=== PATIENT | female | born 2000 | race Caucasian/White ===

== ENCOUNTER → 2020-04-13 08:37 | Outpatient (CLI) | payer OTHER, SELFPAY ==
[2020-04-13 12:33] LABS: AST(SGOT) 16 U/L (15-37); Alanine Aminotransfer ALT/SGPT 19 U/L (13-56); Albumin, Serum 3.6 g/dL (3.2-5.0); Alkaline Phosphatase 51 U/L (45-117); Anion Gap 6 (5-15); BUN 12 mg/dL (7-18); BUN/Creat Ratio 12.8 RATIO (10-20); Calcium,Total 9.1 mg/dL (8.5-10.1); Chloride 106 mmol/L (98-107); Cholesterol 222 mg/dL (200); Creatinine, Serum 0.94 mg/dL (0.55-1.02); EST Glomerular Filtration Rate 80 mL/min (>60); Est Glom Filt Rate - Afr Amer 97 mL/min (>60); Globulin 3.6 g/dL (2.2-4.2); Glucose 81 mg/dL (74-106); High Density Lipoprotein 82 mg/dL; Potassium 3.6 mmol/L (3.5-5.1); Protein, Total 7.2 g/dL (6.4-8.2); Sodium Level 138 mmol/L (136-145); Triglycerides 89 mg/dL; Very Low Density Lipoprotein 18 mg/dL (5-40)
== END ==
PROVIDERS: PCP Family Medicine; Visit Provider Family Medicine
DX: Z00.00 Encounter for general adult medical examination without abnormal findings (principal); Z13.220 Encounter for screening for lipoid disorders; Z13.1 Encounter for screening for diabetes mellitus
CPT/HCPCS: 36415; 80053; 80061

== ENCOUNTER → 2021-04-28 | Outpatient (CLI) | payer OTHER, SELFPAY | END | disposition home or self-care (01) | LOC: LABSPEC 04-29 06:41 | PROVIDERS: PCP Family Medicine; Referring Provider Family Medicine; Visit Provider Family Medicine | DX: Z20.822 Contact with and (suspected) exposure to COVID-19 (principal) | CPT/HCPCS: 87635; U0005; U0003 ==

== ENCOUNTER → 2022-03-17 | Outpatient (CLI) | payer OTHER, SELFPAY ==
[2022-03-17 17:25] LABS: Amphetamine Urine VISTA NEGATIVE (<1000 ng/mL); Barbiturate Urine VISTA NEGATIVE (< 200 ng/mL); Benzodiazepine Urine VISTA NEGATIVE (< 200 ng/mL); Cocaine Urine VISTA NEGATIVE (< 300 ng/mL); Ecstacy Urine VISTA NEGATIVE (< 500 ng/mL); Methadone Urine VISTA NEGATIVE (< 300 ng/mL); PCP Urine VISTA NEGATIVE (< 25 ng/mL); THC Urine VISTA NEGATIVE (< 50 ng/mL); Vista UDS pH Range 6
[2022-03-21 22:06] LABS: Chlamydia By Nucleic Acid AMP Negative (Negative)
[2022-03-22 13:36] LABS: Gonococcus By Nucleic Acid AMP Negative (Negative)
== END | disposition home or self-care (01) ==
PROVIDERS: PCP Family Medicine; Referring Provider Obstetrics & Gynecology; Visit Provider Obstetrics & Gynecology
DX: O09.90 Supervision of high risk pregnancy, unspecified, unspecified trimester (principal)
CPT/HCPCS: 36415; 80307; 84702; 87086; 87088; 87491; 87591

== ENCOUNTER → 2022-03-19 | Outpatient (CLI) | payer OTHER, SELFPAY ==
[2022-03-19 16:49] LABS: hCG Titer Quant., Serum 71559 mIU/mL (1-3)
== END | disposition home or self-care (01) ==
LOC: LAB 15:22
PROVIDERS: PCP Family Medicine; Referring Provider Obstetrics & Gynecology; Visit Provider Obstetrics & Gynecology
DX: O20.0 Threatened abortion (principal)
CPT/HCPCS: 36415; 84702

== ENCOUNTER → 2022-03-25 | Outpatient (CLI) | payer OTHER, SELFPAY ==
--- NOTE | 2022-03-25 15:12 | US_ITS ---
STUDY: FIRST TRIMESTER OBSTETRICAL ULTRASOUND REASON FOR EXAM: Female, 21 years old well being LMP: 01/21/2022 TECHNIQUE: Transabdominal and Transvaginal TECHNICAL QUALITY: Adequate. PRIOR ULTRASOUND: None. FINDINGS: There is visualization of a single gestational sac in a normal intrauterine position. The mean sac diameter (MSD) measures 33 mm, indicating an estimated gestational age (EGA) of 8 weeks, 3 days. The gestational sac shape is within normal limits. There is a visualized yolk sac. The yolk sac measures 4 mm. The placenta is non-visualized. There is no demonstrated embryo ( pole).. The estimated gestation age (EGA) by LMP is 9 weeks, 0 days. The estimated date of delivery (JUANPABLO) by LMP is 10/28/2022. The estimated gestation age (EGA) by US is 8 weeks, 3 days. The estimated date of delivery (JUANPABLO) by US is 11/01/2022. The uterus measures 9.2 x 7.4 x 6.57. There is no demonstrated uterine fibroid. The cervix is closed. The right ovary measures 2.8 x 2.2 x 1.7 cm. There is no right ovarian cyst. There is no visualized right adnexal mass or complex lesion. The left ovary measures 2.5 x 1.5 x 1.4 cm. There is no left ovarian cyst. There is no visualized left adnexal mass or complex lesion. There is no fluid in the cul de sac. US/Init OB < 14Wks US IMPRESSION: Intrauterine gestational sac of 8 weeks 3 days with yolk sac but no identifiable pole most consistent with an incomplete . Electronically Signed: Preet Mcdaniels MD at 16:35 EDT ,
== END | disposition home or self-care (01) ==
PROVIDERS: PCP Family Medicine; Referring Provider Obstetrics & Gynecology; Visit Provider Obstetrics & Gynecology
DX: O20.0 Threatened abortion (principal); Z3A.08 8 weeks gestation of pregnancy
CPT/HCPCS: 76801

== ENCOUNTER 2022-03-29 12:24 | Day surgery (SDC) | payer OTHER, SELFPAY ==
--- NOTE | 2022-03-29 06:28 | HP.PCM.OB_ITS ---
HPI - General HPI Narrative ELAN VANG, is a 21 F who presents with 8 week missed AB no pole and empty gestational sac. ultrasounds done over a week apart with no change. Maternal Data Information JUANPABLO Calculator Estimated Delivery Date Method Current WG Current Estimate 10/24/22 LMP (Certain) 10w 1d PFSH PFSH Medical History (Updated 03/29/22 @ 06:[address] Leonarda Crawford MD) Alcohol use Anxiety Depression History of IBS Non-smoker Wears contact lenses Home Medications dicyclomine 10 mg capsule 10 mg PO PRN PRN IBS 03/28/22 [History Last Taken Unknown] Allergy/AdvReac Type Severity Reaction Status Date / Time azithromycin AdvReac Severe Vomiting Verified 03/28/22 13:41 Surgical History (Updated 03/28/22 @ 13:48 by Trixie Ortiz) Hx of wisdom tooth extraction Social History adopted: No household members: spouse housing: house current occupational status: employed current occupation: [employer] current occupational exposures/hazards: No pets and animals: Yes pets and animals: dog(s) history of recent travel: Yes ([place] & [place]) out of state: Yes out of country: No sexually active: Yes Smoking Status: Never smoker alcohol intake: former details: social prior to substance use type: does not use well-balanced diet: daily or most days caffeine: Yes (occasionally) Type: coffee Number of servings: 1 eating out: 1-3 times/week during the past year weight has: remained stable what type of physical activity do you participate in: walking frequency: 3-4 times per week duration: 15-30 minutes/day chelsi/cheondoism: Anglican seatbelt use: always do you feel safe at home: Yes additional social history: - Donald [employer] History 1 Elective abortions Hx Para 0 Spontaneous abortions Hx # Term Pregnancies Ectopic pregnancies Hx # Pregnancies Multiple births # of living children Visit Details OB Flowsheet Initial Weight: Not Recorded Date -?-?-?-?-?-?-?-?-?-?-?-?- EGA Weight BP Urine Prot -?-?-?-?-?-?-?-?-?-?-?-?- Glucose FHR FuHt Pres Dilation -?-?-?-?-?-?-?-?-?-?-?-?- Effaced St Visit Note 03/17/22 -?-?-?-?-?-?-?-?-?-?-?-?- 8w 3d 140 lb 6 oz 133/89 -?-?-?-?-?-?-?--?-?-?-?-?- -?-?-?-?-?-?-?-?-?-?-?-?- JV- stranding in the GS and irregular shape pole without heart tones. will order serial quants and call patient with results. 03/29/22 -?-?-?-?-?-?-?-?-?-?-?-?- 10w 1d -?-?-?-?-?-?-?-?-?-?-?-?- -?-?-?-?-?-?-?-?-?-?-?-?- ROS Review of Systems ROS Unobtainable: due to mental status and other Constitutional Constitutional: Reports systems reviewed and no addt'l complaints, except as documented; Denies as per HPI, change in weight, fatigue, fever(s), malaise, weakness or other Eyes Eyes: Reports systems reviewed and no addt'l complaints, except as documented; Denies as per HPI, change in vision or other ENT HEENT: Reports as per HPI and dizziness; Denies dry mouth, headache(s), loss taste/smell, nasal congestion, nasal discharge, neck pain, sore throat or other Respiratory/Chest Respiratory/Chest: Reports systems reviewed and no addt'l complaints, except as documented Gastrointestinal Gastrointestinal: Reports systems reviewed and no addt'l complaints, except as documented and nausea; Denies vomiting Musculoskeletal Musculoskeletal: Reports systems reviewed and no addt'l complaints, except as documented; Denies back pain or joint pain Neurologic Neurologic: Reports systems reviewed and no addt'l complaints, except as documented Psychiatric Psychiatric: Reports systems reviewed and no addt'l complaints, except as documented Endocrine Endocrinology: Reports systems reviewed and no addt'l complaints, except as documented Hematologic/Lymphatic Hematologic/Lymphatic: Reports systems reviewed and no addt'l complaints, except as documented Physical Exam Const alert, oriented x3 and no apparent distress HEENT normocephalic Head and Scalp: atraumatic Eyes EOMs intact bilaterally and conjunctivae normal Neck full ROM, no lymphadenopathy, supple and thyroid normal General: trachea midline Lymph Lymphatic: no lymphadenopathy noted Resp normal respiratory effort, no retractions, no use of accessory muscles and clear to auscultation bilaterally Cardio regular rhythm GI normal to inspection, nondistended, normoactive bowel sounds, soft to palpation, non-distended and no masses Inspection: Negative for abdominal distention Back/Spine no CVA tenderness Extremity normal to inspection Skin no rashes or lesions noted Neuro moves all extremities and deep tendon reflexes 2+ bilaterally Motor Exam: clonus absent Psych mental status grossly normal Labs Labs Labs: Pap Smear Negative Obstetrics US Chlamydia DNA (SUMMER) Negative (Negative) Neisseria gonorrhoeae DNA (SUMMER) Negative (Negative) Assessment & Plan (1) Incomplete : COMMENT: D&C scheduled 03/29/22 PLAN: Plan After discussing the patient's diagnosis and treatment plan options, patient wishes to proceed with surgical management. I have discussed with the patient the risks, benefits, and alternatives of the procedure which include but are not limited to risks of anesthesia, bleeding, infection, possible damage to bowel, bladder, or surrounding vasculature which could lead to additional surgery to evaluate any complications. Patient agrees to procedure and wishes to proceed. ACOG/uptodate references given for additional information regarding procedure.
[2022-03-29] MEDS: Doxycycline 100 MG CAPSULE PO (13:16)
[2022-03-29 13:19] VITALS: BP 119/71; PULSE 96; RESP 16; TEMP 36.3; O2SAT 100; BMI 24.0
[2022-03-29 13:21] LABS: Hematocrit 37.7 % (37-47); Hemoglobin 12.9 g/dL (12.0-15.0); Mean Corp Hgb Conc 34.2 g/dL (32-36); Mean Corpuscular Hgb 29.9 pg (27.0-32.0); Mean Corpuscular Volume 87.5 fL (81-99); Mean Platelet Vol. 9.7 fl (6.2-12.0); Platelet Count 273 K/mm3 (150-450); RBC Distribution Width CV 11.8 % (11.6-14.6); RBC Distribution Width SD 37.9 fl (35.1-43.9); Red Blood Count 4.31 M/mm3 (4.2-5.4); White Blood Count 8.8 K/mm3 (4.4-11.0)
[2022-03-29] MEDS: Lactated Ringers 1,000 ML 15 ML IV (13:27)
--- NOTE | 2022-03-29 13:29 | PCM.OPRPT ---
Problems Associated Problem List Diagnoses (1) Incomplete : Report of Operation Date of Procedure: 03/29/22 Pre-Operative Diagnosis: see problem list Post-Operative Diagnosis: same Surgery/Procedure Performed:: Suction dilation and curettage Description of Surgical Findings:: no FHT present, Nonviable 8 weeks prosthetic lab technician: None Type of Anesthesia: Local MAC Special Medications: none Specimen's removed: POC Drains: none Estimated Blood Loss (mL): 50 Fluids Replaced: crystalloid Description of Procedure: Patient was taken to the operating room and placed under MAC local anesthesia. She was prepped and draped in the normal sterile fashion the dorsal lithotomy position. Bladder was drained of clear urine and anterior lip of the cervix was grasped and the uterus sounded to 8 weeks. Cervix was progressively dilated to allow passage of a 8 mm suction curette. Progressive passes were made removing the retained products of conception without complication. Sharp curettage confirmed complete removal of the retained products. All instruments were removed from the vagina and excellent hemostasis was noted and the patient was taken to recovery in stable condition. Grafts/Implants Used: none Complications none Admit VTE Documentation VTE Present on Admission: No VTE Mechan Device Prophylaxis: SCD's Procedures Urinary/Genital 52xxx-59xxx: 80128 Surg Trtmt missed Ab, 1TM
[2022-03-29] MEDS: Lidocaine 1% (20 ml mdv) 20 ML Vial (13:33)
--- NOTE | 2022-03-29 13:47 | DCINST_ITS ---
Discharge Instructions Procedure D&C Diet Discharge Diet: No restrictions Activity Discharge Activity: Return to Normal Activity, May Shower and May Take a Tub Bath (after 1 week) May resume sexual activity in: 1-2 weeks Weight Bearing Status: Weight bearing as tolerated Lifting Restrictions: none Dressing / Incision Call your doctor if you observe: Fever of 101 or Higher, Using more than 1 pad per hour, Shortness of breath and Uncontrolled pain Follow Up Care Please Follow Up With: Leonarda Crawford MD When: Call [phone] to schedule appointment. Test Results: Test results from this visit will be discussed in further detail at your follow- up appointment, if applicable. Discharge Plan Admission Attending Provider: Leonarda Crawford Primary Care Provider: Catalina Cox Discharge Orders/Prescriptions Prescriptions: No Action dicyclomine 10 mg Capsule 10 mg PO PRN PRN (Reason: IBS) Referrals / Follow Up: Catalina Cox DO [Primary Care Provider] - Disposition Disposition (needs filled in before D/C Order can be placed): Home, Self Care
[2022-03-29 13:55] VITALS: BP 113/67; BP 119/71; PULSE 76; RESP 16; TEMP 36.8; O2SAT 99
[2022-03-29 14:00] VITALS: BP 119/71; BP 98/64; PULSE 77; RESP 16; O2SAT 100
[2022-03-29 14:05] VITALS: BP 108/68; BP 119/71; PULSE 68; RESP 16; O2SAT 100
[2022-03-29 14:10] VITALS: BP 110/68; BP 119/71; PULSE 69; RESP 16; TEMP 36.6; O2SAT 100
--- NOTE | 2022-03-29 14:15 | POC_PTH ---
PATIENT: ELAN VANG LOC: [facility] [place] U#:[id number] AGE/SX: 21/ ROOM: RE03/29/[address]: Dr. Leonarda Crawford MD : 2000 BED: DIS: 03/29/2022 SPEC #: [id number] RECD: 03/30/22 08:27 STATUS: DEON REKirby #: [id number] GREY: 03/29/22 14:[address]: Leonarda Crawford DEPT: SURGICAL PATHOLOGY RECD BY: Adolfo Weir ENTERED: 03/30/22 10:18 SP TYPE: PROD CONC OTHR DR: Dr. Catalina Cox DO Tissues: Product of conception, NOS Procedures: Surgery Specimen Level IV HEADER OPERATION: Suction dilation and curettage PRE-OP DIAGNOSIS: Incomplete TISSUE SUBMITTED: Products of conception MICROSCOPIC DIAGNOSIS Products of conception: [place], gestational endometrium and immature chorionic villi (products of conception), clinically incomplete . SJ:[place] 03/31/2022 MICROSCOPIC DESCRIPTION Slides are reviewed. GROSS DESCRIPTION Received in fixative is one container labeled with the patient's name and designated products of conception. The specimen consists of multiple irregular fragments of red-jernigan soft tissue that in aggregate measure 7 x 4.5 x 1 cm. parts are not grossly recognized. Ordering Machine Operator sections area submitted in one cassette. / AM:[place] 03/30/2022 TC:5 CPT: 64164
[2022-03-29] MEDS: HYDROcodone Bitartrate/Apap 5/325 Tablet PO (14:38)
[2022-03-29 15:09] VITALS: BP 119/71; BP 99/66; PULSE 62; RESP 14; TEMP 36.3; O2SAT 100
== END 2022-03-29 15:05 | disposition home or self-care (01) ==
LOC: SDC 12:25 → AC 12:27
PROVIDERS: PCP Family Medicine; Referring Provider Obstetrics & Gynecology; Visit Provider Obstetrics & Gynecology
PROC: (CPT 59812; principal; 2022-03-29 14:00)
DX: O03.4 Incomplete spontaneous abortion without complication (principal)
CPT/HCPCS: 59812; 01965; 85027; 86850; 86900; 86901; 88305; J7120; J2405

== ENCOUNTER → 2022-08-23 | Outpatient (CLI) | payer OTHER, SELFPAY ==
[2022-08-23 16:06] LABS: hCG Titer Quant., Serum 461 mIU/mL (1-3)
== END | disposition home or self-care (01) ==
LOC: PAVLAB 14:58
PROVIDERS: PCP Family Medicine; Referring Provider Obstetrics & Gynecology; Visit Provider Obstetrics & Gynecology
DX: N91.2 Amenorrhea, unspecified (principal)
CPT/HCPCS: 36415; 84702

== ENCOUNTER → 2022-08-25 | Outpatient (CLI) | payer OTHER, SELFPAY ==
[2022-08-25 16:10] LABS: hCG Titer Quant., Serum 972 mIU/mL (1-3)
== END | disposition home or self-care (01) ==
PROVIDERS: PCP Family Medicine; Referring Provider Obstetrics & Gynecology; Visit Provider Obstetrics & Gynecology
DX: N91.2 Amenorrhea, unspecified (principal)
CPT/HCPCS: 36415; 84702

== ENCOUNTER 2022-08-31 18:12 | Outpatient (CLI) | payer OTHER, SELFPAY ==
--- NOTE | 2022-08-31 18:15 | US_ITS ---
STUDY: FIRST TRIMESTER OBSTETRICAL ULTRASOUND REASON FOR EXAM: Female, 21 years old. Viability. LMP: Unknown. TECHNIQUE: Transvaginal TECHNICAL QUALITY: Adequate. PRIOR ULTRASOUND: None. FINDINGS: There is visualization of a single gestational sac in a normal intrauterine position. The mean sac diameter (MSD) measures 0.95 cm, indicating an estimated gestational age (EGA) of 5 weeks, 5 days. The gestational sac shape is within normal limits. There is a visualized yolk sac. The yolk sac measures 0.27 cm. The placenta is non-visualized. There is no demonstrated embryo ( pole). The estimated gestation age (EGA) by LMP is 5 weeks, 4 days. The estimated date of delivery (JUANPABLO) by LMP is April 29, 2023. The estimated gestation age (EGA) by US is 5 weeks, 5 days. The estimated date of delivery (JUANPABLO) by US is April 28, 2023. The retroverted uterus measures 7.1 x 6.6 x 4.1 cm. There is no demonstrated uterine fibroid. The cervix is closed. The right ovary measures 2.4 x 1.7 x 1.5 cm. There are multiple follicles of the right ovary without a dominant cyst. There is no visualized right adnexal mass or complex lesion. Normal vascularity on Doppler imaging. The left ovary measures 3.1 x 2.6 x 2.0 cm. There are multiple follicles of the left ovary without a dominant cyst. There is no visualized left adnexal mass or complex lesion. Normal vascularity on Doppler imaging. There is trace fluid in the cul de sac. US/Transvaginal w/Preg US IMPRESSION: 1. Intrauterine gestational sac with yolk sac but no pole. Gestational age is 5 weeks, 5 days with an JUANPABLO of April 28, 2023. Findings suggest early intrauterine . 2. Normal ovaries. Electronically Signed: Jerel Reyes DO at 20:19 EST ,
== END 2022-08-31 23:59 | disposition home or self-care (01) ==
LOC: US 18:12
PROVIDERS: PCP Family Medicine; Visit Provider Obstetrics & Gynecology
DX: O36.7 Maternal care for viable fetus in abdominal pregnancy (principal)
CPT/HCPCS: 76817

== ENCOUNTER → 2022-09-22 | Outpatient (CLI) | payer OTHER, SELFPAY ==
[2022-09-26 02:08] LABS: Chlamydia By Nucleic Acid AMP Negative (Negative)
[2022-09-26 12:25] LABS: Gonococcus By Nucleic Acid AMP Negative (Negative)
== END | disposition home or self-care (01) ==
LOC: LABSPEC 16:36
PROVIDERS: PCP Family Medicine; Referring Provider Obstetrics & Gynecology; Visit Provider Obstetrics & Gynecology
DX: O09.299 Supervision of pregnancy with other poor reproductive or obstetric history, unspecified trimester (principal); Z3A.00 Weeks of gestation of pregnancy not specified
CPT/HCPCS: 87086; 87491; 87591

== ENCOUNTER → 2022-10-11 | Outpatient (CLI) | payer OTHER, SELFPAY ==
[2022-10-11 10:23] LABS: Absolute Lymphocyte Count 1.81 X10^3/uL (0.83-4.51); Absolute Neutrophil Count 6.7 X10^3/uL (2.0-7.7); Basophil# 0.02 X10^3/uL; Basophil% 0.2 % (0-1); Eosinophil# 0.05 X10^3/uL; Eosinophils% 0.6 % (0-5); Hematocrit 34.7 % (37-47); Hemoglobin 11.8 g/dL (12.0-15.0); Lymphocyte # 1.81 X10^3/ul (0.83-4.51); Lymphocyte % 20.1 % (19-41); Mean Corpuscular Hgb 29.9 pg (27.0-32.0); Mean Corpuscular Volume 87.8 fL (81-99); Mean Platelet Vol. 9.5 fl (6.2-12.0); Monocyte# 0.42 X10^3/uL; Monocyte% 4.7 % (0-10); NRBC Flagged by Analyzer 0 % (0-5); Neutrophil # 6.68 X10^3/uL (2.7-7.7); Neutrophil % 74.2 % (47-70); Platelet Count 264 K/mm3 (150-450); RBC Distribution Width SD 38.6 fl (35.1-43.9); Red Blood Count 3.95 M/mm3 (4.2-5.4)
[2022-10-11 11:28] LABS: HIV - WCH Non-Reactive (Nonreactive); Hepatitis B Surface Antigen Non-Reactive (Nonreactive); Hepatitis C Antibody Non-Reactive (Nonreactive); Rubella IgG Reactive (Nonreactive); Syphilis Antibodies Non-reactive; Vitamin D,25 Hydroxy 33.9 ng/mL
== END | disposition home or self-care (01) ==
LOC: PAVLAB 09:48
PROVIDERS: Obstetrics & Gynecology; PCP Family Medicine; Referring Provider Obstetrics & Gynecology; Visit Provider Obstetrics & Gynecology
DX: O99.280 Endocrine, nutritional and metabolic diseases complicating pregnancy, unspecified trimester (principal); O09.299 Supervision of pregnancy with other poor reproductive or obstetric history, unspecified trimester; E55.9 Vitamin D deficiency, unspecified; Z3A.00 Weeks of gestation of pregnancy not specified
CPT/HCPCS: 36415; 82306; 84443; 85025; 86703; 86762; 86780; 86803; 86850; 86900; 86901; 87340

== ENCOUNTER → 2022-10-14 | Outpatient (CLI) | payer OTHER, SELFPAY ==
[2022-10-14 12:05] LABS: NATERA MAILED SPECIMEN
== END | disposition home or self-care (01) ==
LOC: PAVLAB 10:58
PROVIDERS: PCP Family Medicine; Referring Provider Obstetrics & Gynecology; Visit Provider Obstetrics & Gynecology
DX: Z34.81 Encounter for supervision of other normal pregnancy, first trimester (principal)
CPT/HCPCS: 36415

== ENCOUNTER → 2022-11-25 | Outpatient (CLI) | payer OTHER, SELFPAY ==
[2022-11-25 12:31] LABS: Absolute Lymphocyte Count 1.56 X10^3/uL (0.83-4.51); Absolute Neutrophil Count 6.6 X10^3/uL (2.0-7.7); Basophil# 0.03 X10^3/uL; Basophil% 0.3 % (0-1); Eosinophil# 0.08 X10^3/uL; Eosinophils% 0.9 % (0-5); Hematocrit 33.3 % (37-47); Lymphocyte # 1.56 X10^3/ul (0.83-4.51); Lymphocyte % 17.8 % (19-41); Mean Corpuscular Hgb 30.1 pg (27.0-32.0); Mean Corpuscular Volume 91.2 fL (81-99); Mean Platelet Vol. 10.4 fl (6.2-12.0); Monocyte# 0.51 X10^3/uL; Monocyte% 5.8 % (0-10); NRBC Flagged by Analyzer 0 % (0-5); Neutrophil # 6.57 X10^3/uL (2.7-7.7); Neutrophil % 74.9 % (47-70); Platelet Count 254 K/mm3 (150-450); RBC Distribution Width CV 12.3 % (11.6-14.6); RBC Distribution Width SD 41.2 fl (35.1-43.9); Red Blood Count 3.65 M/mm3 (4.2-5.4); White Blood Count 8.8 K/mm3 (4.4-11.0)
[2022-11-25 12:47] LABS: ALB/GLOB Ratio 0.8 RATIO (0.9-2.4); AST(SGOT) 25 U/L (15-37); Alanine Aminotransfer ALT/SGPT 32 U/L (13-56); Albumin, Serum 3.1 g/dL (3.2-5.0); Alkaline Phosphatase 61 U/L (45-117); Anion Gap 6 (5-15); BUN 9 mg/dL (7-18); BUN/Creat Ratio 16.5 RATIO (10-20); Calcium,Total 9.1 mg/dL (8.5-10.1); Chloride 108 mmol/L (98-107); Cholesterol 267 mg/dL (200); Creatinine, Serum 0.54 mg/dL (0.55-1.02); EST Glomerular Filtration Rate 146 mL/min (>60); Est Glom Filt Rate - Afr Amer 177 mL/min (>60); Glucose 77 mg/dL (74-106); High Density Lipoprotein 86 mg/dL; Potassium 3.6 mmol/L (3.5-5.1); Protein, Total 7.1 g/dL (6.4-8.2); Sodium Level 138 mmol/L (136-145); Triglycerides 71 mg/dL; Very Low Density Lipoprotein 14 mg/dL (5-40)
== END | disposition home or self-care (01) ==
LOC: BFHLAB 09:39
PROVIDERS: PCP Family Medicine; Visit Provider Nurse Practitioner Family
DX: Z00.00 Encounter for general adult medical examination without abnormal findings (principal)
CPT/HCPCS: 36415; 80053; 80061; 85025

== ENCOUNTER → 2023-01-30 | Outpatient (CLI) | payer OTHER, SELFPAY ==
[2023-01-30 09:41] LABS: Absolute Lymphocyte Count 1.59 X10^3/uL (0.83-4.51); Absolute Neutrophil Count 8.3 X10^3/uL (2.0-7.7); Basophil# 0.04 X10^3/uL; Basophil% 0.4 % (0-1); Eosinophils% 0.9 % (0-5); Hematocrit 32.8 % (37-47); Hemoglobin 10.8 g/dL (12.0-15.0); Lymphocyte # 1.59 X10^3/ul (0.83-4.51); Lymphocyte % 15.1 % (19-41); Mean Corp Hgb Conc 32.9 g/dL (32-36); Mean Corpuscular Hgb 30.3 pg (27.0-32.0); Mean Corpuscular Volume 91.9 fL (81-99); Mean Platelet Vol. 10.3 fl (6.2-12.0); Monocyte# 0.47 X10^3/uL; Monocyte% 4.5 % (0-10); NRBC Flagged by Analyzer 0 % (0-5); Neutrophil % 78.5 % (47-70); Platelet Count 221 K/mm3 (150-450); RBC Distribution Width CV 12.1 % (11.6-14.6); RBC Distribution Width SD 40.7 fl (35.1-43.9); Red Blood Count 3.57 M/mm3 (4.2-5.4); White Blood Count 10.6 K/mm3 (4.4-11.0)
[2023-01-30 10:14] LABS: Glucose Challenge Gest 1H 50g 123 mg/dL (70-140)
[2023-01-30 10:51] LABS: HIV - WCH Non-Reactive (Nonreactive); Syphilis Antibodies Non-reactive
== END | disposition home or self-care (01) ==
LOC: PAVLAB 08:56
PROVIDERS: Nurse Practitioner Women's Health; PCP Family Medicine; Referring Provider Obstetrics & Gynecology; Visit Provider Obstetrics & Gynecology
DX: Z34.90 Encounter for supervision of normal pregnancy, unspecified, unspecified trimester (principal)
CPT/HCPCS: 36415; 82950; 85025; 86703; 86780

== ENCOUNTER → 2023-02-27 | Outpatient (CLI) | payer OTHER, SELFPAY ==
[2023-02-27 16:12] LABS: Absolute Lymphocyte Count 2.12 X10^3/uL (0.83-4.51); Basophil# 0.04 X10^3/uL; Basophil% 0.3 % (0-1); Eosinophil# 0.07 X10^3/uL; Eosinophils% 0.5 % (0-5); Hematocrit 35.1 % (37-47); Hemoglobin 11.4 g/dL (12.0-15.0); Lymphocyte # 2.12 X10^3/ul (0.83-4.51); Lymphocyte % 15.2 % (19-41); Mean Corp Hgb Conc 32.5 g/dL (32-36); Mean Corpuscular Hgb 30.7 pg (27.0-32.0); Mean Corpuscular Volume 94.6 fL (81-99); Mean Platelet Vol. 10.6 fl (6.2-12.0); Monocyte# 0.64 X10^3/uL; Monocyte% 4.6 % (0-10); NRBC Flagged by Analyzer 0 % (0-5); Neutrophil # 10.99 X10^3/uL (2.7-7.7); Platelet Count 242 K/mm3 (150-450); RBC Distribution Width CV 12.6 % (11.6-14.6); RBC Distribution Width SD 43.3 fl (35.1-43.9); Red Blood Count 3.71 M/mm3 (4.2-5.4); White Blood Count 13.9 K/mm3 (4.4-11.0)
== END | disposition home or self-care (01) ==
PROVIDERS: Nurse Practitioner Women's Health; PCP Family Medicine; Referring Provider Obstetrics & Gynecology; Visit Provider Obstetrics & Gynecology
DX: O99.012 Anemia complicating pregnancy, second trimester (principal); Z3A.00 Weeks of gestation of pregnancy not specified
CPT/HCPCS: 36415; 85025

== ENCOUNTER 2023-03-06 18:13 | Outpatient (CLI) | payer OTHER, SELFPAY ==
[2023-03-06 18:42] VITALS: BMI 29.5
[2023-03-06 19:19] LABS: ROM Internal Control Test YES-OK TO RESULT pt. (Internal QC); ROM Patient Test Negative (Negative)
[2023-03-06 19:20] LABS: Record Kit Lot#, ROM+ K1374
--- NOTE | 2023-03-08 17:12 | OB.TRI.HP_ITS ---
HPI - General HPI Narrative ELAN VANG, is a 22 F who presents at 32 +2 with questionable leaking of fluid. +fm, no vb/ctx. Maternal Data Information JUANPABLO Calculator Estimated Delivery Date Method Current WG Current Estimate 04/29/23 LMP (Certain) 32w 4d Other Estimates 04/25/23 Ultrasound #1 33w 1d PFSH PFSH Medical History Alcohol use Anxiety Depression History of IBS History of spontaneous Non-smoker Wears contact lenses Home Medications dicyclomine 10 mg capsule 10 mg PO PRN PRN IBS 03/28/22 [History Last Taken Unknown] docosahexaenoic acid 200 mg capsule ( DHA) mg PO 09/13/22 [History Last Taken Unknown] fluoxetine 10 mg capsule 10 mg PO DAILY 09/13/22 [History Last Taken 03/06/23 07:00 10 mg] Allergy/AdvReac Type Severity Reaction Status Date / Time azithromycin AdvReac Severe Vomiting Verified 03/08/23 15:36 Surgical History History of D&C Hx of wisdom tooth extraction Social History adopted: No household members: spouse housing: house current occupational status: employed current occupation: [email or web address], [employer] current occupational exposures/hazards: No pets and animals: Yes pets and animals: dog(s) history of recent travel: No ([place] & [place]) sexually active: Yes Smoking Status: Never smoker Electronic Cigarette Use: not used alcohol intake: former details: social prior to substance use type: does not use well-balanced diet: daily or most days caffeine: Yes (occasionally) Type: coffee Number of servings: 1 eating out: 1-3 times/week during the past year weight has: remained stable what type of physical activity do you participate in: walking frequency: 3-4 times per week duration: 15-30 minutes/day chelsi/scientology: Roman Catholic seatbelt use: always do you feel safe at home: Yes additional social history: - [employer] History 2 Elective abortions Hx Para 0 Spontaneous abortions 1 Hx # Term Pregnancies Ectopic pregnancies Hx # Pregnancies Multiple births # of living children 0 Past Pregnancies Del. Date Name GA/Weeks Outcome Route Bth Weight Infant Gen Labor Lgth Anesthesia Del Jose Rafaelatpedro Provider FOB 03/29/22 spontaneous Visit Details Expected Delivery Route/Plan Labor Preferences- CB/BF classes: discussed labor support person: Jeremy labor intervention preferences: [] pain management options preferred: epidural cut cord/dad catch: cord : yes PP control planned: discussed discussed possible routes of delivery and associated risks: [] special requests: [] Plans Covid status: unvaccinated Flu vaccine: no Tdap vaccine: given Rhogam: NA LARC form signed: yes Problem list reviewed and updated with the most current plan of care details and appropriate orders placed. Relevant counseling for the gestational age provided. Continue routine care and follow up unless otherwise noted in visit notes/problem list details OB Flowsheet Initial Weight: Not Recorded Date -?-?-?-?-?-?-?-?-?-?-?-?- EGA Weight BP Urine Prot -?-?-?-?-?-?-?-?-?-?-?-?- Glucose FHR FuHt Pres Dilation -?-?-?-?-?-?-?-?-?-?-?-?- Effaced St Visit Note 09/22/22 -?-?-?-?-?-?-?-?-?-?-?-?- 8w 5d 140 lb 2 oz 123/81 -?-?-?-?-?-?-?-?-?-?-?-?- 185 -?-?-?-?-?-?-?-?-?-?-?-?- JV- single live IUP measuring 9 weeks 2 days and consistent with LMP. deciding on NIPT. return in 2 weeks for heart tones due to h/o miscarriage. 10/11/22 -?-?-?-?-?-?-?-?-?-?-?-?- 11w 3d 141 lb 8 oz 123/70 Nega tive -?-?-?-?-?-?-?-?-?-?-?-?- Negative 157 -?-?-?-?-?-?-?-?-?-?-?-?- MH-No VB. Brief US to confirm fht. Labs today. Still considering NIPT 11/09/22 -?-?-?-?-?-?-?-?-?-?-?-?- 15w 4d 144 lb 2 oz 120/70 Nega tive -?-?-?-?-?-?-?-?-?-?-?-?- Negative 155 -?-?-?-?-?-?-?-?-?-?-?-?- LC- no vb/crampi ng. normal labs, low risk nipt. discussed and declines afp. 12/07/22 -?-?-?-?-?-?-?-?-?-?-?-?- 19w 4d 145 lb 4 oz 112/72 Trac e -?-?-?-?-?-?-?-?-?-?-?-?- Negative 154 -?-?-?-?-?-?-?-?-?-?-?-?- -NO VB. No mov ement yet. MFM US /6 01/06/23 -?-?-?-?-?-?-?-?-?-?-?-?- 23w 6d 152 lb 6 oz 108/62 Nega tive -?-?-?-?-?-?-?-?-?-?-?-?- Negative 153 24 -?-?-?-?-?-?-?-?-?-?-?-?- KW- +fm, no lof/ vb/ctx. discussed placental lobes, and 28 week labs. 01/30/23 -?-?-?-?-?-?-?-?-?-?-?-?- 27w 2d 158 lb 4 oz 104/72 Nega tive -?-?-?-?-?-?-?-?-?-?-?-?- Negative 145 28 -?-?-?-?-?-?-?-?-?-?-?-?- -No VB, LOF. G ood FM. 28 wk labs, larc. 02/20/23 -?-?-?-?-?-?-?-?-?-?-?-?- 30w 2d 164 lb 2 oz 100/66 Nega tive -?-?-?-?-?-?-?-?-?-?-?-?- Negative 145 30 -?-?-?-?-?-?-?-?-?-?-?-?- KW-no vb/lof/ctx . Good FM. repeat CBC next week. 03/08/23 -?-?-?-?-?-?-?-?-?-?-?-?- 32w 4d 169 lb 6 oz 106/71 -?-?-?-?-?-?-?-?-?-?-?-?- 143 32 -?-?-?-?-?-?-?-?-?-?-?-?- MH-No VB, LOF or CTX. Feeling more uncomfortable but r/t normal growth. She has rpt US at 36 wk NST FHR Rate Baby A Baseline: 130 Variability:: Moderate Accelerations:: 15 x 15 Decelerations:: None NST Reactive:: Yes FHR Category:: Category I Uterine Activity:: none Assessment & Plan (1) Leakage, amniotic fluid: COMMENT: NEGATIVE ROM, resolved. PLAN: Plan Patient presents for triage evaluation secondary to questionable LOF. ROM negative. reassurance provided. no further lof. FHT: Moderate variability reactive no decelerations category I tracing Dora: no Contractions Assessment and plan: Reactive NST, reassuring maternal and status patient discharged to home to follow-up in office/prn. See problem list details for additional plan information. Charges/Coding Procedures Urinary/Genital 52xxx-59xxx: 90312-84 non-stress test Interp
== END 2023-03-06 19:55 | disposition home or self-care (01) ==
LOC: WPOUT 18:22 → WP 18:23
PROVIDERS: PCP Family Medicine; Visit Provider Registered Nurse
DX: O47.03 False labor before 37 completed weeks of gestation, third trimester (principal); O99.343 Other mental disorders complicating pregnancy, third trimester; F41.9 Anxiety disorder, unspecified; F32.A Depression, unspecified; Z3A.32 32 weeks gestation of pregnancy; Z79.899 Other long term (current) drug therapy
CPT/HCPCS: 59025; 59050; 84112

== ENCOUNTER → 2023-04-06 | Outpatient (CLI) | payer OTHER, SELFPAY | END | disposition home or self-care (01) | PROVIDERS: PCP Family Medicine; Visit Provider Obstetrics & Gynecology | DX: Z34.90 Encounter for supervision of normal pregnancy, unspecified, unspecified trimester (principal) | CPT/HCPCS: 87081 ==

== ENCOUNTER → 2023-04-24 | Outpatient (CLI) | payer OTHER, SELFPAY ==
[2023-04-24 15:51] LABS: ROM Internal Control Test YES-OK TO RESULT pt. (Internal QC); ROM Patient Test Negative (Negative); Record Kit Lot#, ROM+ K1409
== END | disposition home or self-care (01) ==
PROVIDERS: PCP Family Medicine; Visit Provider Registered Nurse
DX: O42.90 Premature rupture of membranes, unspecified as to length of time between rupture and onset of labor, unspecified weeks of gestation (principal); Z3A.00 Weeks of gestation of pregnancy not specified
CPT/HCPCS: 84112

== ENCOUNTER 2023-05-01 11:05 | Inpatient (IN) | payer OTHER, SELFPAY ==
[2023-05-01] VITALS (34 sets, daily range): BP systolic 87–171; BP diastolic 39–93; PULSE 60–114; RESP 13–16; TEMP 36.1–36.5; O2SAT 89–100; BMI 31.7
[2023-05-01 11:05] LABS: ROM Internal Control Test YES-OK TO RESULT pt. (Internal QC); ROM Patient Test Negative (Negative); Record Kit Lot#, ROM+ K1409
[2023-05-01] MEDS: Lactated Ringers 1,000 ML 50 ML IV (11:12)
[2023-05-01 11:27] LABS: Absolute Lymphocyte Count 1.56 X10^3/uL (0.83-4.51); Absolute Neutrophil Count 10.4 X10^3/uL (2.0-7.7); Basophil# 0.04 X10^3/uL; Basophil% 0.3 % (0-1); Eosinophil# 0.04 X10^3/uL; Eosinophils% 0.3 % (0-5); Hematocrit 41.7 % (37-47); Hemoglobin 13.7 g/dL (12.0-15.0); Lymphocyte # 1.56 X10^3/ul (0.83-4.51); Lymphocyte % 12.4 % (19-41); Mean Corp Hgb Conc 32.9 g/dL (32-36); Mean Corpuscular Hgb 30.6 pg (27.0-32.0); Mean Corpuscular Volume 93.3 fL (81-99); Mean Platelet Vol. 11.7 fl (6.2-12.0); NRBC Flagged by Analyzer 0 % (0-5); Neutrophil # 10.41 X10^3/uL (2.7-7.7); Neutrophil % 82.4 % (47-70); Platelet Count 203 K/mm3 (150-450); RBC Distribution Width CV 12.7 % (11.6-14.6); RBC Distribution Width SD 43.3 fl (35.1-43.9); Red Blood Count 4.47 M/mm3 (4.2-5.4); White Blood Count 12.6 K/mm3 (4.4-11.0)
[2023-05-01 12:21] LABS: Syphilis Antibodies Non-reactive
--- NOTE | 2023-05-01 13:22 | HP.PCM.OB_ITS ---
HPI - General General Date of Admission: 05/01/23 Chief Complaint: contractions. HPI Narrative ELAN VANG, is a 22 F who presents at 40.2 with contractions with nausea starting this morning. denies lof however has had increased vaginal discharge. good fm, denies vaginal bleeding. Maternal Data Information JUANPABLO Calculator Estimated Delivery Date Method Current WG Current Estimate 04/29/23 LMP (Certain) 40w 2d Other Estimates 04/25/23 Ultrasound #1 40w 6d PFSH PFSH Medical History Alcohol use Anxiety Depression History of IBS History of spontaneous Non-smoker Placental abnormality Wears contact lenses Home Medications docosahexaenoic acid 200 mg capsule ( DHA) mg PO 09/13/22 [History Last Taken 05/01/23 06:00 200 mg] fluoxetine 10 mg capsule 10 mg PO DAILY 09/13/22 [History Last Taken 05/01/23 06:00 10 mg] Allergy/AdvReac Type Severity Reaction Status Date / Time azithromycin AdvReac Severe Vomiting Verified 05/01/23 10:20 Surgical History History of D&C Hx of wisdom tooth extraction Social History adopted: No household members: spouse housing: house current occupational status: employed current occupation: [employer], [employer] current occupational exposures/hazards: No pets and animals: Yes pets and animals: dog(s) history of recent travel: No ([place] & [place]) sexually active: Yes Smoking Status: Never smoker Electronic Cigarette Use: not used alcohol intake: former details: social prior to substance use type: does not use well-balanced diet: daily or most days caffeine: Yes (occasionally) Type: coffee Number of servings: 1 eating out: 1-3 times/week during the past year weight has: remained stable what type of physical activity do you participate in: walking frequency: 3-4 times per week duration: 15-30 minutes/day chelsi/jain: Tenriism seatbelt use: always do you feel safe at home: Yes additional social history: - Donald [employer] History 2 Elective abortions Hx Para 0 Spontaneous abortions 1 Hx # Term Pregnancies Ectopic pregnancies Hx # Pregnancies Multiple births # of living children 0 Past Pregnancies Del. Date Name GA/Weeks Outcome Route Bth Weight Infant Gen Labor Lgth Anesthesia Del Roxana Provider FOB 03/29/22 spontaneous Visit Details Expected Delivery Route/Plan Labor Preferences- CB/BF classes: discussed labor support person: Jeremy labor intervention preferences: [] pain management options preferred: epidural cut cord/dad catch: cord : yes PP control planned: discussed discussed possible routes of delivery and associated risks: [] special requests: [] Plans Covid status: unvaccinated Flu vaccine: no Tdap vaccine: given Rhogam: NA LARC form signed: yes Problem list reviewed and updated with the most current plan of care details and appropriate orders placed. Relevant counseling for the gestational age provided. Continue routine care and follow up unless otherwise noted in visit notes/problem list details OB Flowsheet Initial Weight: 140 lb Date -?-?-?-?-?-?-?-?-?-?-?-?- EGA Weight BP Urine Prot -?-?-?-?-?-?-?-?-?-?-?-?- Glucose FHR FuHt Pres Dilation -?-?-?-?-?-?-?-?-?-?-?-?- Effaced St Visit Note 09/22/22 -?-?-?-?-?-?-?-?-?-?-?-?- 8w 5d 140 lb 2 oz (+2 oz) 123/81 -?-?-?-?-?-?-?-?-?-?-?-?- 185 -?-?-?-?-?-?-?-?-?-?-?-?- JV- single live IUP measuring 9 weeks 2 days and consistent with LMP. deciding on NIPT. return in 2 weeks for heart tones due to h/o miscarriage. 10/11/22 -?-?-?-?-?-?-?-?-?-?-?-?- 11w 3d 141 lb 8 oz (+1 lb 8 oz) 123/70 Negative -?-?-?-?-?-?-?-?-?-?-?-?- Negative 157 -?-?-?-?-?-?-?-?-?-?-?-?- MH-No VB. Brief US to confirm fht. Labs today. Still considering NIPT 11/09/22 -?-?-?-?-?-?-?-?-?-?-?-?- 15w 4d 144 lb 2 oz (+4 lb 2 oz) 120/70 Negative -?-?-?-?-?-?-?-?-?-?-?-?- Negative 155 -?-?-?-?-?-?--?-?-?-?-?-?- LC- no vb/crampi ng. normal labs, low risk nipt. discussed and declines afp. 12/07/22 -?-?-?-?-?-?-?-?-?-?-?-?- 19w 4d 145 lb 4 oz (+5 lb 4 oz) 112/72 Trace -?-?-?-?-?-?-?-?-?-?-?-?- Negative 154 -?-?-?-?-?-?-?-?-?-?-?-?- MH-NO VB. No mov ement yet. MFM US 6/6 01/06/23 -?-?-?-?-?-?-?-?-?-?-?-?- 23w 6d 152 lb 6 oz (+12 lb 6 oz) 108/62 Negative -?-?-?-?-?-?-?-?-?-?-?-?- Negative 153 24 -?-?-?-?-?-?-?-?-?-?-?-?- KW- +fm, no lof/ vb/ctx. discussed placental lobes, and 28 week labs. 01/30/23 -?-?-?-?-?-?-?-?-?-?-?-?- 27w 2d 158 lb 4 oz (+18 lb 4 oz) 104/72 Negative -?-?-?-?-?-?-?-?-?-?-?-?- Negative 145 28 -?-?-?-?-?-?-?-?-?-?-?-?- -No VB, LOF. G ood FM. 28 wk labs, [facility]. 02/20/23 -?-?-?-?-?-?-?-?-?-?-?-?- 30w 2d 164 lb 2 oz (+24 lb 2 oz) 100/66 Negative -?-?-?-?-?-?-?-?-?-?-?-?- Negative 145 30 -?-?-?-?-?-?-?-?-?-?-?-?- KW-no vb/lof/ctx . Good FM. repeat CBC next week. 03/08/23 -?-?-?-?-?-?-?-?-?-?-?-?- 32w 4d 169 lb 6 oz (+29 lb 6 oz) 106/71 -?-?-?-?-?-?-?-?-?-?-?-?- 143 32 -?-?-?-?-?-?-?-?-?-?-?-?- -No VB, LOF or CTX. Feeling more uncomfortable but r/t normal growth. She has rpt US at 36 wk 03/23/23 -?-?-?-?-?-?-?-?-?-?-?-?- 34w 5d 171 lb 6 oz (+31 lb 6 oz) 113/74 Negative -?-?-?--?-?-?-?-?-?-?-?-?- Negative 140 34 -?-?-?-?-?-?-?-?-?-?-?-?- SM- no vb lof go od fm no reuglar ctx 04/06/23 -?-?-?-?-?-?-?-?-?-?-?-?- 36w 5d 176 lb 5 oz (+36 lb 5 oz) 124/82 -?-?-?-?-?-?-?-?-?-?-?-?- 140 36 Cephalic 0.5 -?-?-?-?-?-?-?-?-?-?-?-?- -1 SM- no v b lof good fm no regular ctx gbs collected 04/10/23 -?-?-?-?-?-?-?-?-?-?-?-?- 37w 2d 176 lb (+36 lb) 120/78 Negative -?-?-?-?-?-?-?-?-?-?-?-?- Negative 130 36 -?-?-?-?-?-?-?-?-?-?-?-?- LC- no vb/lof/ct x. good fm. gbs negative. 04/20/23 -?-?-?-?-?-?-?-?-?-?-?-?- 38w 5d 176 lb 8 oz (+36 lb 8 oz) 125/77 Negative -?-?-?-?-?-?-?-?-?-?-?-?- Negative 120 37 Cephalic 2 -?-?-?-?-?-?-?-?-?-?-?-?- 70 -2 KW-no vb/l of/ctx. good fm. labor precautions 04/24/23 -?-?-?-?-?-?-?-?-?-?-?-?- 39w 2d 179 lb (+39 lb) 120/82 Negative -?-?-?-?-?-?-?-?-?-?-?-?- Negative 135 38 Cephalic 2 -?-?-?-?-?-?-?-?-?-?-?-?- 70 -2 LC- no vb/ ctx. good fm. + ? LOF since 2129. ROM plus collected. Vital Signs Vital Signs Vital Signs: 05/01/23 10:12 05/01/23 10:12 05/01/23 11:00 Pulse Rate 80 75 Blood Pressure 110/71 BP Systolic 110 BP Diastolic 71 Pulse Ox 05/01/23 11:00 05/01/23 11:05 05/01/23 11:05 Pulse Rate 87 Blood Pressure BP Systolic BP Diastolic Pulse Ox 99 100 05/01/23 11:15 05/01/23 11:15 05/01/23 11:19 Pulse Rate 91 103 H Blood Pressure BP Systolic BP Diastolic Pulse Ox 100 05/01/23 11:19 05/01/23 11:20 05/01/23 11:20 Pulse Rate 102 H Blood Pressure BP Systolic BP Diastolic Pulse Ox 89 100 05/01/23 11:25 05/01/23 11:25 05/01/23 11:30 Pulse Rate 90 94 Blood Pressure BP Systolic BP Diastolic Pulse Ox 100 05/01/23 11:30 05/01/23 11:35 05/01/23 11:35 Pulse Rate 90 Blood Pressure BP Systolic BP Diastolic Pulse Ox 100 100 05/01/23 11:40 05/01/23 11:40 05/01/23 11:45 Pulse Rate 114 H 114 H Blood Pressure BP Systolic BP Diastolic Pulse Ox 100 05/01/23 11:45 Pulse Rate Blood Pressure BP Systolic BP Diastolic Pulse Ox 100 Weight Weight: 179 lb 0.246 oz Body Mass Index (BMI) 31.7 Labs Labs Labs: Blood Type A POSITIVE Antibody Screen NEGATIVE Hct 41.7 % (37-47) Hgb 13.7 g/dL (12.0-15.0) Pap Smear Negative Obstetrics Ultrasound Syphilis Total Ab Non-reactive Rubella IgG Antibody Reactive (Nonreactive) Hep Bs Antigen Non-Reactive (Nonreactive) Hepatitis C Antibody Non-Reactive (Nonreactive) Chlamydia DNA (SUMMER) Negative (Negative) N.gonorrhoeae DNA (SUMMER) Negative (Negative) HIV 1&2 Antibody Non-Reactive (Nonreactive) Glucose 1 Hr 50 gm 123 mg/dL (70-140)
--- NOTE | 2023-05-01 13:22 | PCM.HP.OB ---
HPI - General General Date of Admission: 05/01/23 Chief Complaint: contractions. HPI Narrative ELAN VANG, is a 22 F who presents at 40.2 with contractions with nausea starting this morning. denies lof however has had increased vaginal discharge. good fm, denies vaginal bleeding. prolonged deceleration noted on monitor at 1055 to 90s x 6-7 minutes. Maternal Data Information JUANPABLO Calculator Estimated Delivery Date Method Current WG Current Estimate 04/29/23 LMP (Certain) 40w 2d Other Estimates 04/25/23 Ultrasound #1 40w 6d PFSH PFSH Medical History (Updated 05/01/23 @ 13:32 by Deepthi Franco CNM) Alcohol use Anxiety Depression History of IBS History of spontaneous Non-smoker Placental abnormality Wears contact lenses Home Medications docosahexaenoic acid 200 mg capsule ( DHA) mg PO 09/13/22 [History Last Taken 05/01/23 06:00 200 mg] fluoxetine 10 mg capsule 10 mg PO DAILY 09/13/22 [History Last Taken 05/01/23 06:00 10 mg] Allergy/AdvReac Type Severity Reaction Status Date / Time azithromycin AdvReac Severe Vomiting Verified 05/01/23 10:20 Surgical History History of D&C Hx of wisdom tooth extraction Social History adopted: No household members: spouse housing: house current occupational status: employed current occupation: [employer], [employer] current occupational exposures/hazards: No pets and animals: Yes pets and animals: dog(s) history of recent travel: No ([place] & [place]) sexually active: Yes Smoking Status: Never smoker Electronic Cigarette Use: not used alcohol intake: former details: social prior to substance use type: does not use well-balanced diet: daily or most days caffeine: Yes (occasionally) Type: coffee Number of servings: 1 eating out: 1-3 times/week during the past year weight has: remained stable what type of physical activity do you participate in: walking frequency: 3-4 times per week duration: 15-30 minutes/day chelsi/buddhist: Amish seatbelt use: always do you feel safe at home: Yes additional social history: - Donald [employer] History 2 Elective abortions Hx Para 0 Spontaneous abortions 1 Hx # Term Pregnancies Ectopic pregnancies Hx # Pregnancies Multiple births # of living children 0 Past Pregnancies Del. Date Name GA/Weeks Outcome Route Bth Weight Gen Labor Lgth Anesthesia Carson Jose Rafaelkathi Provider FOB 03/29/22 spontaneous Visit Details Expected Delivery Route/Plan Labor Preferences- CB/BF classes: discussed labor support person: Jeremy labor intervention preferences: [] pain management options preferred: epidural cut cord/dad catch: cord : yes PP control planned: discussed discussed possible routes of delivery and associated risks: [] special requests: [] Plans Covid status: unvaccinated Flu vaccine: no Tdap vaccine: given Rhogam: NA LARC form signed: yes Problem list reviewed and updated with the most current plan of care details and appropriate orders placed. Relevant counseling for the gestational age provided. Continue routine care and follow up unless otherwise noted in visit notes/problem list details OB Flowsheet Initial Weight: 140 lb Date <del>?</del> EGA Weight BP Urine Prot <del>?</del> Glucose FHR FuHt Pres Dilation <del>?</del> Effaced St Visit Note 09/22/22 <del>?</del> 8w 5d 140 lb 2 oz (+2 oz) 123/81 <del>?</del> 185 <del>?</del> JV- single live IUP measuring 9 weeks 2 days and consistent with LMP. deciding on NIPT. return in 2 weeks for heart tones due to h/o miscarriage. 10/11/22 <del>?</del> 11w 3d 141 lb 8 oz (+1 lb 8 oz) 123/70 Negative <del>?</del> Negative 157 <del>?</del> MH-No VB. Brief US to confirm fht. Labs today. Still considering NIPT 11/09/22 <del>?</del> 15w 4d 144 lb 2 oz (+4 lb 2 oz) 120/70 Negative <del>?</del> Negative 155 <del>?</del> LC- no vb/cramping. normal labs, low risk nipt. discussed and declines afp. 12/07/22 <del>?</del> 19w 4d 145 lb 4 oz (+5 lb 4 oz) 112/72 Trace <del>?</del> Negative 154 <del>?</del> MH-NO VB. No movement yet. MFM US 6 01/06/23 <del>?</del> 23w 6d 152 lb 6 oz (+12 lb 6 oz) 108/62 Negative <del>?</del> Negative 153 24 <del>?</del> KW- +fm, no lof/vb/ctx. discussed placental lobes, and 28 week labs. 01/30/23 <del>?</del> 27w 2d 158 lb 4 oz (+18 lb 4 oz) 104/72 Negative <del>?</del> Negative 145 28 <del>?</del> MH-No VB, LOF. Good FM. 28 wk labs, [facility]. 02/20/23 <del>?</del> 30w 2d 164 lb 2 oz (+24 lb 2 oz) 100/66 Negative <del>?</del> Negative 145 30 <del>?</del> KW-no vb/lof/ctx. Good FM. repeat CBC next week. 03/08/23 <del>?</del> 32w 4d 169 lb 6 oz (+29 lb 6 oz) 106/71 <del>?</del> 143 32 <del>?</del> MH-No VB, LOF or CTX. Feeling more uncomfortable but r/t normal growth. She has rpt US at 36 wk 03/23/23 <del>?</del> 34w 5d 171 lb 6 oz (+31 lb 6 oz) 113/74 Negative <del>?</del> Negative 140 34 <del>?</del> SM- no vb lof good fm no reuglar ctx 04/06/23 <del>?</del> 36w 5d 176 lb 5 oz (+36 lb 5 oz) 124/82 <del>?</del> 140 36 Cephalic 0.5 <del>?</del> -1 SM- no vb lof good fm no regular ctx gbs collected 04/10/23 <del>?</del> 37w 2d 176 lb (+36 lb) 120/78 Negative <del>?</del> Negative 130 36 <del>?</del> LC- no vb/lof/ctx. good fm. gbs negative. 04/20/23 <del>?</del> 38w 5d 176 lb 8 oz (+36 lb 8 oz) 125/77 Negative <del>?</del> Negative 120 37 Cephalic 2 <del>?</del> 70 -2 KW-no vb/lof/ctx. good fm. labor precautions 04/24/23 <del>?</del> 39w 2d 179 lb (+39 lb) 120/82 Negative <del>?</del> Negative 135 38 Cephalic 2 <del>?</del> 70 -2 LC- no vb/ctx. good fm. + ? LOF since 2129. ROM plus collected. NST FHR Rate Baby A Baseline: 140 Variability:: Moderate Accelerations:: 15 x 15 FHR Category:: Category I Uterine Activity:: irregular ROS Cardiovascular Cardiovascular: Denies abdominal pain, chest pain, diaphoresis or dyspnea Respiratory/Chest Respiratory/Chest: Denies change in mental status, chest congestion, chest tightness, cough, shortness of breath at rest, shortness of breath with exertion, breast mass, breast pain, breast skin changes, breast swelling, change in breast shape or nipple discharge Genitourinary Genitourinary: Reports change in urinary stream Musculoskeletal Musculoskeletal: Reports none Integumentary Integumentary: Reports none Neurologic Neurologic: Reports none Psychiatric Psychiatric: Reports none Endocrine Endocrinology: Reports none Hematologic/Lymphatic Hematologic/Lymphatic: Reports none Allergic/Immunologic Allergic/Immunologic: Reports none Vital Signs Vital Signs Vital Signs: 05/01/23 10:12 05/01/23 10:12 05/01/23 11:00 Pulse Rate 80 75 Blood Pressure 110/71 BP Systolic 110 BP Diastolic 71 Pulse Ox 05/01/23 11:00 05/01/23 11:05 05/01/23 11:05 Pulse Rate 87 Blood Pressure BP Systolic BP Diastolic Pulse Ox 99 100 05/01/23 11:15 05/01/23 11:15 05/01/23 11:19 Pulse Rate 91 103 H Blood Pressure BP Systolic BP Diastolic Pulse Ox 100 05/01/23 11:19 05/01/23 11:20 05/01/23 11:20 Pulse Rate 102 H Blood Pressure BP Systolic BP Diastolic Pulse Ox 89 100 05/01/23 11:25 05/01/23 11:25 05/01/23 11:30 Pulse Rate 90 94 Blood Pressure BP Systolic BP Diastolic Pulse Ox 100 05/01/23 11:30 05/01/23 11:35 05/01/23 11:35 Pulse Rate 90 Blood Pressure BP Systolic BP Diastolic Pulse Ox 100 100 05/01/23 11:40 05/01/23 11:40 05/01/23 11:45 Pulse Rate 114 H 114 H Blood Pressure BP Systolic BP Diastolic Pulse Ox 100 05/01/23 11:45 Pulse Rate Blood Pressure BP Systolic BP Diastolic Pulse Ox 100 Weight Weight: 179 lb 0.246 oz Body Mass Index (BMI) 31.7 Physical Exam Const alert, oriented x3 and no apparent distress General Appearance: cooperative, comfortable and well kempt Orientation / Consciousness: awake and oriented to person Exam Limitations: no limitations HEENT normocephalic Neck full ROM Chest inspection of chest normal Resp normal respiratory effort, normal air movement and no retractions Effort and Inspection: able to speak in complete sentences and symmetric chest movement Cardio regular rate Peripheral Pulses: pulses 2+ throughout GI normal to inspection, nondistended, normoactive bowel sounds Inspection: gravid no CVA tenderness and appearance of the vagina normal External Female Exam: normal appearance of the urethra; Negative for external lesion OB / External & Speculum: external exam normal Manual OB Exam: estimated gestational size appropriate and presentation cephalic Uterus Palpation: Negative for uterus tender Extremity normal to inspection Skin no rashes or lesions noted Neuro deep tendon reflexes 2+ bilaterally and gait normal Motor Exam: strength 5/5 throughout and clonus absent Psych Activity / Motor Behavior: appropriate eye contact Speech: normal speech Labs Labs Labs: Blood Type A POSITIVE Antibody Screen NEGATIVE Hct 41.7 % (37-47) Hgb 13.7 g/dL (12.0-15.0) Pap Smear Negative Obstetrics Ultrasound Syphilis Total Ab Non-reactive Rubella IgG Antibody Reactive (Nonreactive) Hep Bs Antigen Non-Reactive (Nonreactive) Hepatitis C Antibody Non-Reactive (Nonreactive) Chlamydia DNA (SUMMER) Negative (Negative) N.gonorrhoeae DNA (SUMMER) Negative (Negative) HIV 1&2 Antibody Non-Reactive (Nonreactive) Glucose 1 Hr 50 gm 123 mg/dL (70-140) Assessment & Plan (1) Prolonged heart deceleration: COMMENT: admit to [facility] IV fluid bolus AROM, internal FSE (2) Spontaneous onset of labor: COMMENT: GBs negative. plans epidural (3) Placenta succenturiata: QUALIFIERS: Trimester: second trimester Qualified Code(s): O43.192 - Other malformation of placenta, second trimester COMMENT: succenturiate lobe seen on anatomy scan. Growth US Q4w:04/10 30% and rpt 4 wk (4) Supervision of high risk , antepartum: COMMENT: PRR JUANPABLO 04/29/23 Girl Donlad (5) : QUALIFIERS: Weeks of gestation: 38 weeks Qualified Code(s): Z3A.38 - 38 weeks gestation of COMMENT: GBS neg, NIPT LR and carrier declined, nl anatomy PLAN: Plan updated on admission, deceleration and personally examined pt and provided bedside ultrasound. will co-manage patient for decelerations. currently cat 1 tracing.
[2023-05-01] MEDS: fentaNYL-bupivacaine (epidural) 100 ML BAG EPIDURAL (13:59)
[2023-05-01] MEDS: Lactated Ringers 1,000 ML 200 ML IV (15:12)
--- NOTE | 2023-05-01 16:30 | PLAC_PTH ---
PATIENT: ELAN VANG LOC: WP U#:[id number] AGE/SX: 22/F ROOM: WP006 RE05/01/[address]: Dr. Merle Decker DO : 2000 BED: 1 DIS: 05/03/2023 SPEC #: [id number] RECD: 05/01/23 16:30 STATUS: DEON GATO #: [id number] GREY: 05/01/23 16:[address]: Merle Decker DEPT: SURGICAL PATHOLOGY RECD BY: Sabrina Canseco ENTERED: 05/02/23 08:57 SP TYPE: PLACENTA OTHR DR: Dr. Catalina Cox, DO Deepthi Franco, [facility] Tissues: Placenta, NOS Procedures: Surgery Specimen Level V HEADER OPERATION: Primary section PRE-OP DIAGNOSIS: Labor TISSUE SUBMITTED: Placenta MICROSCOPIC DIAGNOSIS Placenta: Placental disc - third trimester placenta (403 gm) (two separate lobes). - Focal area of intraparenchymal hemorrhage, increased intervillous and perivillous fibrin deposition and calcification in the smaller lobe of placenta (1.0 cm in greatest dimension). Membranes - no pathologic diagnosis. Umbilical cord - three blood vessels and no pathologic diagnosis. SJ:rg 05/04/2023 MICROSCOPIC DESCRIPTION Slides are reviewed. GROSS DESCRIPTION SPECIMEN: PLACENTA / CLINICAL INFORMATION: A. Weight: 2.9 kg B. Gestational Age: 40 weeks C. Sex: Female PLACENTAL WEIGHT (POST FIXATION): 403 gm PLACENTAL DIMENSIONS: Two separate lobes of the placenta noted by a distance of 4.0 cm in the membrane. The larger lobe of the placenta measures 17.0 x 15.0 x 3.0 cm and the smaller lobe of the placenta measures 10.0 x 7.0 x 2.0 cm. The larger lobe of the placenta is partly disrupted; however, the placenta appears to be complete. PLACENTAL SHAPE: Usual ovoid (both sides) PLACENTAL WEIGHT FOR GESTATIONAL AGE: Within 10-99th percentile MEMBRANES - Present A. Insertion: Marginal B. Site of rupture from edge: 5.0 cm from edge of placental disc, inserted in the larger lobe of the placental disc. C. Color of membrane: Jernigan-syed D. Abnormalities: None UMBILICAL CORD - Present A. Color: Jernigan-syed B. Insertion: Paracentral C. Length: 29.0 cm D. Diameter: 1.0 cm E. Number of vessels: Three F. Abnormalities: None PLACENTAL DISC - Present A. Color of surface: Jernigan-syed B. surface abnormalities: None C. Maternal cotyledons: Intact with minimal tears D. Attached retro placental clot: No clot E. Cut surface: Dark red and spongy F. Lesions: Sections reveal a jernigan, indurated area in the smaller lobe of the placenta measuring 1.0 cm in greatest dimension. G. Separate clot: Absent SECTIONS SUBMITTED: 1. Membrane roll 2. Cord, maternal end 3. Cord, end 4. Placental disc, and maternal surfaces, smaller lobe and lesion 5. Placental disc, and maternal surfaces, larger lobe 6. Placental disc, and maternal surfaces, larger lobe SJ:[place] 05/03/2023 TC:5 CPT: 91062
--- NOTE | 2023-05-01 17:17 | RAD_ITS ---
STUDY: X-RAY - ABDOMEN/PELVIS REASON FOR EXAM: Female, 22 years old. mars unable to count TECHNIQUE: KUB COMPARISON: None. FINDINGS: Normal visualized lung bases. There is an unremarkable bowel gas pattern. Pneumoperitoneum noted consistent with recent surgery. The visualized liver, spleen and kidneys are grossly normal in size and morphology. Uterus is enlarged consistent with recent state. No radiopaque foreign bodies are seen within the abdomen or pelvis Normal visualized osseous structures. RAD/Abdomen Single View (Portable) IMPRESSION: No evidence for retained surgical instruments within the abdomen or pelvis postsurgically Electronically Signed: Miguel Angel Dodge MD at 18:29 EDT ,
[2023-05-01] MEDS: Oxytocin 15 Units/NS 250ml 15 UNITS/250 ML IV.SOLN 83 UNITS IV (17:35)
--- NOTE | 2023-05-01 17:50 | OP.PCM_ITS ---
Assessment & Plan (1) Spontaneous onset of labor: COMMENT: GBs negative. plans epidural (2) Prolonged heart deceleration: COMMENT: admit to WP IV fluid bolus AROM, internal FSE (3) Anemia affecting in second trimester: COMMENT: rpt CBC 4 wks: nl (4) Placenta succenturiata: QUALIFIERS: Trimester: second trimester Qualified Code(s): O43.192 - Other malformation of placenta, second trimester COMMENT: succenturiate lobe seen on anatomy scan. Growth US Q4w:10/ 30% and rpt 4 wk (5) Depression affecting : COMMENT: depression and anxiety-Prozac 10mg-stable (6) Supervision of high risk , antepartum: COMMENT: PRR JUANPABLO 04/29/23 Girl Donald (7) : QUALIFIERS: Weeks of gestation: 38 weeks Qualified Code(s): Z3A.38 - 38 weeks gestation of COMMENT: GBS neg, NIPT LR and carrier declined, nl anatomy Maternal Data Information JUANPABLO Calculator Estimated Delivery Date Method Current WG Current Estimate 04/29/23 LMP (Certain) 40w 2d Other Estimates 04/25/23 Ultrasound #1 40w 6d Final JUANPABLO: 04/29/23 Final JUANPABLO Source: LMP Details Operative Information Date of Procedure: 05/01/23 Pre-Operative Diagnosis: @ 40 weeks 2 days, decelerations and bradycardia Post-Operative Diagnosis: @ 40 weeks 2 days, decelerations and bradycardia Classification: Stat Procedure Type: low transverse heat reader #1: Deepthi Franco Type of Anesthesia: Epidural Antibiotic Given: Ancef 2 grams IV x1 Estimated Blood Loss: 700cc Findings Description of Procedure: Patient was admitted to labor and delivery for active labor and had a spontaneous 9-minute deceleration that resolved with position change and oxygen. She was admitted and a bedside ultrasound showed an JUAN R of 4. Membranes were ruptured and scant bloody fluid returned. An internal monitor was placed on the infant's head. At this time moderate variability and accelerations were noted. 3 hours later the patient was brought to the OR stat due to bradycardia in the 60s that did not resolve. This was preceded by minimal to moderate variability and variable and late decelerations. The decision was made to proceed with an emergency section. Procedure: The patient was brought to the operating room where epidural anesthesia was found to be adequate. She was prepped and draped in the normal sterile fashion and was placed in a dorsal supine position with a leftward tilt. Pfannenstiel skin incision was made with a scalpel and carried through to the underlying layers. The fascia was nicked in the midline and extended laterally using Goins scissors. The anterior aspect of the fascia was grasped with Lauren clamps and the underlying rectus muscles dissected off using the Metzenbaum scissors. The inferior aspect the fascia was also grasped with Lauren clamps and the underlying rectus muscle dissected off with the Metzenbaum scissors. The rectus muscles were in the midline. Peritoneum was entered sharply. The uterus was identified and a bladder blade was inserted into the abdomen. Bladder flap was created off the uterus using Metzenbaum scissors. A transverse incision was made with a scalpel and extended laterally manually. The infant's head was grasped with the help of my trading assistant and fundal pressure the infant was delivered through the uterine incision without difficulty. The mouth and nares were bulb suctioned. After a 30 second delay the cord was clamped and cut. The end was handed off to the awaiting transportation department supervisor for routine assessment. Placenta was delivered manually without difficulty. The uterus was exteriorized and cleared of all clots and debris. Incision was closed with an 0 Vicryl suture in a running locked fashion. Second layer of 1-0 monocryl suture was used in imbricating manner to create excellent closure and hemostasis.The uterus was returned to the abdomen. The gutters were cleared of all clots and debris. The peritoneum was closed in a pursestring pattern using a 3-0 Vicryl suture. This muscle was reapproximated with a 3-0 Vicryl. The fascia was closed with a PDS stratafix suture. Subcutaneous tissue layer was closed using a plain gut suture. The skin was closed with a 4-0 Monocryl subcuticular stitch. The skin was also sealed with surgical glue. The patient tolerated the procedure well sponge lap and needle counts were correct at each tissue closure plane and the patient is now being brought to the recovery room in stable con dition Presentation: Positive for Vertex Amniotic Membrane Rupture Type: Artificial Amniotic Fluid Description: Bloody (slight blood tinged) Placental Delivery Description: Manual Removal Specimen(s) Sent to Pathology: placenta Cord Vessel Description: 3 Vessels Cord Entanglement: None Cord Gases: ABG and VBG A Gender: Female (1 minute): 8 (5 minute): 9 Delayed Cord Clamping: No Complications Risks of Surgery Discussed w/Patient: Bleeding, Anesthesia Risks, Infection, Need for Future C-Sections and Injury to surrounding structure(s) including bowel and bladder Multi Select Codes Urinary/Genital Urinary/Genital CPT Codes: 64880 delivery only
--- NOTE | 2023-05-01 17:58 | DCINST_ITS ---
Discharge Instructions Diet Discharge Diet: No restrictions Activity Discharge Activity: May Not Drive (for 2 weeks or while taking narcotic pain medications.), May Shower and May Take a Tub Bath (in 7 days.) May resume sexual activity in: 4-6 weeks Weight Bearing Status: Full weight bearing Lifting Restrictions: 20 pounds Dressing / Incision Call your doctor if your incision/area has: Continuous Slow Oozing, Sudden Increased Bleeding, Increased Pain/ Swelling, Increased Redness and Foul Smelling Discharge Call your doctor if you observe: Fever of 101 or Higher and Using more than 1 pad per hour Suture Line Care: Avoid Pulling/Pushing and Avoid Pinching/Bending Cleanse incision/area with: Soap & Water and Keep Dressing Clean & Dry Follow Up Care Please Follow Up With: Merle Decker DO When: Call [phone] to make an appointment for an incision check in 1-2 weeks. Test Results: Test results from this visit will be discussed in further detail at your follow- up appointment, if applicable. Discharge Plan Admission Admit Date/Time: 05/01/23 11:05 Primary Reason for Your Visit: section Attending Provider: Merle Decker Primary Care Provider: Catalina Cox Discharge Orders/Prescriptions Prescriptions: New naproxen 500 mg tablet 500 mg PO BID PRN (Reason: pain) Qty: 30 0RF Continued fluoxetine 10 mg capsule 10 mg PO DAILY DHA 200 mg capsule PO Referrals / Follow Up: Catalina Cox DO [Primary Care Provider] - Disposition Disposition (needs filled in before D/C Order can be placed): Home, Self Care
[2023-05-01] MEDS: Ketorolac 30 MG/ML Syringe IV (18:39)
[2023-05-01] MEDS: Ondansetron 4 MG/2 ML Vial IV (19:39)
[2023-05-01] MEDS: DiphenhydrAMINE 25 MG Capsule PO (20:37)
[2023-05-01] MEDS: Lactated Ringers 1,000 ML 100 ML IV (20:37)
[2023-05-01 23:35] LABS: Pathology Specimen OB SEE PATHOLOGY REPORT
[2023-05-02] VITALS (7 sets, daily range): BP systolic 112–134; BP diastolic 48–79; PULSE 69–94; RESP 16; TEMP 36.4–36.6; O2SAT 96–99
[2023-05-02] MEDS: Acetaminophen 500 MG Tablet 1000 MG PO ×4 (00:19→18:59)
[2023-05-02] MEDS: Ketorolac 30 MG/ML Syringe IV ×3 (00:22→13:06)
[2023-05-02] MEDS: Metoclopramide 10 MG/2 ML Vial 5 MG IV (01:14)
[2023-05-02] MEDS: LACTATED RINGERS 500 ML 999 ML IV (01:14)
[2023-05-02 05:23] LABS: Hematocrit 27.9 % (37-47); Hemoglobin 9.3 g/dL (12.0-15.0); Mean Corp Hgb Conc 33.3 g/dL (32-36); Mean Corpuscular Hgb 31.6 pg (27.0-32.0); Mean Corpuscular Volume 94.9 fL (81-99); Mean Platelet Vol. 10.8 fl (6.2-12.0); Platelet Count 150 K/mm3 (150-450); RBC Distribution Width CV 12.4 % (11.6-14.6); RBC Distribution Width SD 43.2 fl (35.1-43.9); Red Blood Count 2.94 M/mm3 (4.2-5.4); White Blood Count 17.1 K/mm3 (4.4-11.0)
--- NOTE | 2023-05-02 06:16 | CPS ---
Taught by RN
[2023-05-02] MEDS: FLUoxetine 10 MG Capsule PO (09:34)
[2023-05-02] MEDS: Senna/Docusate Sodium 1 Tablet PO (09:34)
--- NOTE | 2023-05-02 12:56 | PN.OBGYN_ITS ---
Subjective Subjective Patient doing well without complaints. Tolerating PO. Ambulating and voiding without difficulty. Feeding well. Denies chest pain, shortness of breath, calf pain/swelling, fevers, chills, lightheadedness. Objective Data Objective Data Vital Signs: Vital Signs Temp Pulse Resp BP Pulse Ox O2 Del Method 98 F 94 16 121/77 H 97 Room Air 05/02/23 12:06 05/02/23 12:06 05/02/23 12:06 05/02/23 12:06 05/02/23 12:06 05/02/23 12:06 Oxygen Delivery Method Room Air Weight: 179 lb 0.246 oz Body Mass Index (BMI) 31.7 Intake & Output: Intake and Output for Last 24 Hours 04/30/23 05/01/23 05/02/23 23:59 23:59 23:59 Intake Total 680 / 680 1500 / 1500 Output Total 1550 / 1550 1850 / 1850 Balance -870 / -870 -350 / -350 Lab / Micro Data 05/02/23 05:15 Labs: Laboratory Results - last 24 hr 05/02/23 05:15: WBC 17.1 H, RBC 2.94 L, Hgb 9.3 L, Hct 27.9 L, MCV 94.9, MCH 31.6, MCHC 33.3, RDW Std Deviation 43.2, RDW Coeff of Karo 12.4, Plt Count 150, MPV 10.8 Radiography Diagnostic Testing: Radiology Impression KUB X-Ray 05/01/23 17:17 IMPRESSION: No evidence for retained surgical instruments within the abdomen or pelvis postsurgically Electronically Signed: Miguel Angel Dodge MD at 18:29 EDT , ROS Constitutional Constitutional: Reports systems reviewed and no addt'l complaints, except as documented; Denies anorexia or headache(s) Cardiovascular Cardiovascular: Reports systems reviewed and no addt'l complaints, except as documented; Denies dizziness, dyspnea, nausea or tachypnea Respiratory/Chest Respiratory/Chest: Reports systems reviewed and no addt'l complaints, except as documented; Denies cough, dyspnea, shortness of breath at rest or tachypnea Gastrointestinal Gastrointestinal: Reports systems reviewed and no addt'l complaints, except as documented; Denies abdominal pain, constipation or nausea Genitourinary Genitourinary: Reports systems reviewed and no addt'l complaints, except as documented; Denies burning urination, difficulty urinating, dysuria, urinary frequency or urinary incontinence Musculoskeletal Musculoskeletal: Reports systems reviewed and no addt'l complaints, except as documented Integumentary Integumentary: Reports systems reviewed and no addt'l complaints, except as documented Neurologic Neurologic: Reports systems reviewed and no addt'l complaints, except as d ocumented; Denies abnormal speech, dizziness or headache(s) Psychiatric Psychiatric: Reports systems reviewed and no addt'l complaints, except as docum ented Endocrine Endocrinology: Reports systems reviewed and no addt'l complaints, except as documented Hematologic/Lymphatic Hematologic/Lymphatic: Reports systems reviewed and no addt'l complaints, except as documented Physical Exam Const alert, oriented x3 and no apparent distress Neck full ROM Resp normal respiratory effort, normal air movement and no retractions Effort and Inspection: able to speak in complete sentences and symmetric chest movement GI soft to palpation Inspection: incision intact Bladder / Kidney Exam: bladder normal to palpation Uterus Palpation: uterus fundus Extremity normal to inspection and full ROM Psych mental status grossly normal, thought process normal and cooperative Assessment & Plan (1) delivery delivered: PLAN: s/p LTCS PPD # 1 1. routine post care 2. breast feeding- support given 3. rh positive 4. rubella immune Charges/Coding Multi Select Codes Urinary/Genital Urinary/Genital CPT Codes: No Charge
--- NOTE | 2023-05-02 13:12 | CASEMGMT ---
Social Work Assessment Labor and Delivery Unit Patient Address:[address] [place], [place] [id number] Phone number: [phone] Date of Referral: 05/01/23 Time of Referral:? 1125 Referred By: Deepthi Franco Date of Intervention: ?05/02/23? Time of Intervention:? 1100 Reason for Referral:? pt's father was an alcoholic Sw completed chart review and acknowledges social work consult due to mother of baby's (MOB- Myah) being an alcoholic. Sw presented to bedside, introduced self to MOB and father of baby (FOB- Donald) and maternal grandmother. Sw explained reason for sw involvement and asked MOB if it was okay for sw to complete assessment with visitor persmarta. MOB stated that it was perfectly fine for sw to complete psychosocial assessment with her mom present. History obtained from: medical records and mother of baby (JAMEEL)?and FOB. Household composition: Currently residing in the family home is JAMEEL, FRANCISCO and now baby. MOB states that they also have a noel retriever Alena who is an emotional support animal that she takes to work with her. MOB states that while parents have been at the hospital her mom has been helping with Alena. Patient's parent/guardian status:? MOB states that she and FOB met through family members/ mutual friends. They have been together for 6 years, for 3. No concerns of domestic violence or intimate partner violence at this time. ? Medical History: JAMEEL is 1, para 0- now 1. MOB states that she had a miscarriage last year and that was extremely difficult for her. JAMEEL received routine care with [facility] during . JAMEEL presented to hospital on 05/01/23 due to signs of labor. Baby was having heart decelerations and as a result MOB ended up requiring emergent delivery. Baby was born on 05/01/23 at 40 weeks gestation. Baby girl, named Valentin, was born weighing 6lb 6oz and her apgars were 8 and 9 at one and five minutes of life respectfully. MOB states that she is breast feeding and it is going well. Educational Status: Both parents graduated from high school and obtained college degrees. Parents deny concerns with reading, learning or comprehension. ? Financial Status: Both parents are employed outside of the home. FOSimon works for the [employer]. JAMEEL is employed at [employer] as a mental health coordinator. Supplies: Parents report that they have obtained all necessary baby items including: car seat, safe sleep space, clothes, diapers, wipes and a breast pump Childcare/Caregiver(s):?JAMEEL will be the primary caregiver to baby while she is on maternity leave, along with FRANCISCO when he is not at work. When both parents are working maternal grandma will be the rn or lpn. Transportation:?? Both parents have reliable means of transportation. No barriers at this time. Programs/Agencies Involved: ??Parents are not connected to any financial community resources or programs at this time. JAMEEL was previously connected to counseling but she isn't any more. ? Children Services/Legal Issues:??? No history of Children Services involvement, no issues or concerns warranting a referral at this time. Behavioral Health Issues: ??Mental Health History: FRANCISCO denies mental health history. JAMEEL states that she has been diagnosed with anxiety and depression. JAMEEL is prescribed pharmacoligical medication to help imaging account manager her mental health symptoms at this time. JAMEEL states that she really struggled with her mental health after her miscarriage last year. JAMEEL stated that she is aware of signs and symptoms of baby blues and depression to be on the lookout for. ??? Substance Use History: JAMEEL denies substance use prior to and during . ? Family History:?JAMEEL states that her father used to be an alcoholic, but has now been sober for 9 years. JAMEEL states that FRANCISCO experienced a traumatic event that led to his sobriety. ? Drug Screens: ??No urine screens observed in chart review. Family/Social Stressors:? Parents deny any stressors or concerns at this time. Support Systems: JAMEEL states that FRANCISCO and their parents are her biggest supports at this time. Depression/Shaken Baby/Safe Sleeping:? Sw educated parents on signs and symptoms of baby blues and depression/ anxiety to be on the look out for. Sw encouraged parents to have a conversation prior to discharge about how FRANCISCO can be supportive to MOB if she should struggle . Parents expressed understanding. Sw educated parents on shaken baby prevention and ABCs of safe sleep. Parents expressed understanding. ASSESSMENT:? JAMEEL is admitted due to labor and delivery of baby. JAMEEL required delivery and has been recovering well. JAMEEL has a lot of natural supports in place. MOB has history of anxiety and depression and reports that if she felt as though she started to struggle she feels comfortable talking to her PCP about increasing her medication dosage or getting re-connected to mental health counseling. Parents were open and talkative and engaged during assessment. Parents were welcoming of sw support and involvement. PLAN:? MOB and baby to be discharged when medically ready. ?No other services requested or indicated. Laura Basurto, TURBO ELECTRIC OPERATOR, TUBE BUILDER
[2023-05-02] MEDS: Naproxen 500 MG Tablet PO (18:59)
[2023-05-03] MEDS: Acetaminophen 500 MG Tablet 1000 MG PO ×2 (02:15→08:05)
[2023-05-03] MEDS: Naproxen 500 MG Tablet PO ×2 (02:42→10:00)
[2023-05-03 02:43] VITALS: BP 115/48; RESP 18; TEMP 36.1
--- NOTE | 2023-05-03 07:59 | PCM.PN.OB ---
Subjective Subjective Patient doing well without complaints. Tolerating PO. Ambulating and voiding without difficulty. Feeding well. Denies chest pain, shortness of breath, calf pain/swelling, fevers, chills, lightheadedness. Objective Data Objective Data Vital Signs: Vital Signs Temp Pulse Resp BP Pulse Ox O2 Del Method 97 F L 87 18 115/48 L 96 Room Air 05/03/23 02:43 05/02/23 20:30 05/03/23 02:43 05/03/23 02:43 05/02/23 16:50 05/03/23 02:43 Oxygen Delivery Method Room Air Weight: 179 lb 0.246 oz Body Mass Index (BMI) 31.7 Intake & Output: Intake and Output for Last 24 Hours 05/01/23 05/02/23 05/03/23 23:59 23:59 23:59 Intake Total 680 / 680 1500 / 1500 Output Total 1550 / 1550 1850 / 1850 Balance -870 / -870 -350 / -350 Lab / Micro Data 05/02/23 05:15 Physical Exam Const alert and oriented x3 HEENT normocephalic Eyes PERRL Neck full ROM Resp normal respiratory effort GI soft to palpation GI Narrative: FF below U. Dressing dry and intact Palpation: tender other (appropriately) Assessment & Plan (1) delivery delivered: COMMENT: 05/01/23 PLTCS Girl Valentin(sp) JV distress PLAN: Plan s/p LTCS PPD # 2 1. routine post care 2. breast feeding- support given 3. rh positive 4. rubella immune 5. home today
[2023-05-03 08:53] VITALS: BP 125/69; PULSE 81; RESP 16; TEMP 36.2
[2023-05-03] MEDS: FLUoxetine 10 MG Capsule PO (10:05)
[2023-05-03] MEDS: Senna/Docusate Sodium 1 Tablet PO (10:05)
== END 2023-05-03 12:40 | disposition home or self-care (01) | DRG 788 ==
LOC: WP 11:08 → WPOUT 05-02 10:27
PROVIDERS: Admitting Provider Registered Nurse; PCP Family Medicine; Referring Provider Registered Nurse; Visit Provider Obstetrics & Gynecology
DX: O76 Abnormality in fetal heart rate and rhythm complicating labor and delivery (principal); F32.A Depression, unspecified; F41.9 Anxiety disorder, unspecified; N89.8 Other specified noninflammatory disorders of vagina; O99.892 Other specified diseases and conditions complicating childbirth; O43.193 Other malformation of placenta, third trimester; Z37.0 Single live birth; O99.344 Other mental disorders complicating childbirth; O99.02 Anemia complicating childbirth; Z3A.40 40 weeks gestation of pregnancy; Z79.899 Other long term (current) drug therapy
CPT/HCPCS: 59025; 59050; 74018; 76815; 84112; 85025; 85027; 86780; 86850; 86900; 86901; 88307; 99221; J7120; G0378; J2405

== ENCOUNTER → 2023-12-19 | Outpatient (CLI) | payer OTHER, SELFPAY ==
[2023-12-19 12:15] LABS: Absolute Lymphocyte Count 1.64 X10^3/uL (0.83-4.51); Absolute Neutrophil Count 4.7 X10^3/uL (2.0-7.7); Basophil# 0.03 X10^3/uL; Basophil% 0.4 % (0-1); Eosinophil# 0.26 X10^3/uL; Eosinophils% 3.7 % (0-5); Hematocrit 40.4 % (37-47); Lymphocyte # 1.64 X10^3/ul (0.83-4.51); Lymphocyte % 23.3 % (19-41); Mean Corp Hgb Conc 32.2 g/dL (32-36); Mean Corpuscular Hgb 29.5 pg (27.0-32.0); Mean Corpuscular Volume 91.8 fL (81-99); Mean Platelet Vol. 10.6 fl (6.2-12.0); Monocyte# 0.43 X10^3/uL; Monocyte% 6.1 % (0-10); NRBC Flagged by Analyzer 0 % (0-5); Neutrophil # 4.65 X10^3/uL (2.7-7.7); Neutrophil % 66.2 % (47-70); Platelet Count 266 K/mm3 (150-450); RBC Distribution Width CV 11.8 % (11.6-14.6); RBC Distribution Width SD 39.8 fl (35.1-43.9)
[2023-12-19 12:41] LABS: Vitamin D,25 Hydroxy 58.9 ng/mL
[2023-12-19 12:49] LABS: ALB/GLOB Ratio 1.1 RATIO (0.9-2.4); AST(SGOT) 15 U/L (15-37); Alanine Aminotransfer ALT/SGPT 19 U/L (13-56); Alkaline Phosphatase 87 U/L (45-117); Anion Gap 3 (5-15); BUN 16 mg/dL (7-18); BUN/Creat Ratio 20.3 RATIO (10-20); Calcium,Total 9.9 mg/dL (8.5-10.1); Chloride 108 mmol/L (98-107); Cholesterol 181 mg/dL (200); Creatinine, Serum 0.79 mg/dL (0.55-1.02); EST Glomerular Filtration Rate 94 mL/min (>60); Est Glom Filt Rate - Afr Amer 114 mL/min (>60); Globulin 3.5 g/dL (2.2-4.2); Glucose 79 mg/dL (74-106); High Density Lipoprotein 69 mg/dL; Potassium 4.2 mmol/L (3.5-5.1); Protein, Total 7.5 g/dL (6.4-8.2); Sodium Level 138 mmol/L (136-145); Triglycerides 23 mg/dL; Very Low Density Lipoprotein 5 mg/dL (5-40)
[2023-12-20 01:53] LABS: Ferritin 46 ng/mL (8-252); Iron 90 ug/dL (50-170)
== END | disposition home or self-care (01) ==
LOC: BFHLAB 10:02
PROVIDERS: PCP Family Medicine; Referring Provider Family Medicine; Visit Provider Family Medicine
DX: Z00.01 Encounter for general adult medical examination with abnormal findings (principal); R53.83 Other fatigue; D64.9 Anemia, unspecified
CPT/HCPCS: 36415; 80053; 80061; 82306; 82728; 83540; 85025

== ENCOUNTER → 2024-07-05 | Outpatient (CLI) | payer OTHER, SELFPAY ==
[2024-07-12 11:29] LABS: HPV Reflexed? NOT INDICATED
== END | disposition home or self-care (01) ==
LOC: LABSPEC 11:37
PROVIDERS: PCP Family Medicine; Referring Provider Nurse Practitioner Women's Health; Visit Provider Nurse Practitioner Women's Health
DX: Z12.4 Encounter for screening for malignant neoplasm of cervix (principal)
CPT/HCPCS: 88175; G0145

== ENCOUNTER → 2024-12-26 | Outpatient (CLI) | payer OTHER, SELFPAY ==
[2024-12-26 16:00] LABS: Cholesterol 204 mg/dL (<=200); Glucose 79 mg/dL (70-99); High Density Lipoprotein 66 mg/dL; Low Density Lipoprotein Calc. 130 mg/dL; Triglycerides 40 mg/dL; Very Low Density Lipoprotein 8 mg/dL (5-40); cholesterol:hdl ratio screen 3.08
== END | disposition home or self-care (01) ==
PROVIDERS: PCP Family Medicine; Visit Provider Family Medicine
DX: Z13.1 Encounter for screening for diabetes mellitus (principal); Z13.220 Encounter for screening for lipoid disorders
CPT/HCPCS: 36415; 80061; 82947

== ENCOUNTER → 2025-04-30 | Outpatient (CLI) | payer OTHER, SELFPAY ==
[2025-04-30 17:33] LABS: hCG Titer Quant., Serum 21 mIU/mL (<9 non-preg)
== END | disposition home or self-care (01) ==
PROVIDERS: PCP Family Medicine; Referring Provider Nurse Practitioner Women's Health; Visit Provider Nurse Practitioner Women's Health
DX: N91.2 Amenorrhea, unspecified (principal)
CPT/HCPCS: 36415; 84702

== ENCOUNTER → 2025-05-02 | Outpatient (CLI) | payer OTHER, SELFPAY ==
[2025-05-02 16:16] LABS: hCG Titer Quant., Serum 15 mIU/mL (<9 non-preg)
== END | disposition home or self-care (01) ==
PROVIDERS: Obstetrics & Gynecology; PCP Family Medicine; Visit Provider Obstetrics & Gynecology
DX: Z34.90 Encounter for supervision of normal pregnancy, unspecified, unspecified trimester (principal)
CPT/HCPCS: 36415; 84702

== ENCOUNTER → 2025-05-08 | Outpatient (CLI) | payer OTHER, SELFPAY ==
[2025-05-08 18:10] LABS: hCG Titer Quant., Serum < 1 mIU/mL (<9 non-preg)
== END | disposition home or self-care (01) ==
LOC: BWCLAB 15:08
PROVIDERS: PCP Family Medicine; Visit Provider Obstetrics & Gynecology
DX: O03.9 Complete or unspecified spontaneous abortion without complication (principal)
CPT/HCPCS: 36415; 84702

== ENCOUNTER → 2025-06-26 | Outpatient (CLI) | payer OTHER, SELFPAY ==
[2025-06-26 18:23] LABS: hCG Titer Quant., Serum 953 mIU/mL (<9 non-preg)
== END | disposition home or self-care (01) ==
PROVIDERS: Student in an Organized Health Care Education/Training Program; PCP Family Medicine; Visit Provider Nurse Practitioner Women's Health
DX: N91.1 Secondary amenorrhea (principal)
CPT/HCPCS: 36415; 84702

== ENCOUNTER → 2025-06-28 | Outpatient (CLI) | payer OTHER, SELFPAY ==
--- OUTSIDE RECORDS SUMMARY | 2025-06-28 11:03 | XMS RPT_ITS | CCD ---
Author Organization [facility] CliniSyil Care Team Providers Care Locker Room Clerk Name Role Phone Dr. Catalina Cox Primary Care Provider Dr. Catalina Cox Referring Provider [phone] Merle Decker Attending Provider [phone] Dr. Leonarda Christine Attending Provider [phone] Dr. Leonarda Christine Referring Provider [phone] Dr. Leonarda Christine Other Provider [phone] Dr. Catalina Cox Primary Care Provider [phone] Dr. Catalina Cox Referring Provider [phone] Merle Decker Attending Provider [phone] JAMES León NP Attending Provider [phone] BETY Franco Attending Provider Dr. Catalina Cox Primary Care Provider Dr. Catalina Cox Referring Provider BETY Elliott Attending Provider [phone] Dr. Catalina Cox Primary Care Provider [phone] Dr. Catalina Cox Referring Provider JAMES León NP Attending Provider [phone] CATALINA COX Primary Care Unavailable MERLE SAM Referring Unavailab LORRIE Myers Attending Unavailable LORRIE ALEXANDER Attending Unavailable LEONARDA CHRISTINE Referring Unavailabl e CATALINA OCX Primary Care Unavailable Dr. Catalina Cox Primary Care Provider [phone] Dr. Catalina Cox Referring Provider [phone] Romelia PRODUCT MARKETING SPECIALIST, JAMES Méndez Attending Provider [phone] BETY Franco Attending Provider [phone] Salvador, BETY Lacey Other Provider Dr. Leonarda Christine Attending Provider [phone] Salvador, BETY Lacey Admit Provider Salvador, BETY Lacey Referring Provider [phone] Merle Decker Other Provider Kenny MELGAR, Dr. Arnold Primary Care Provider [phone] Dr. Catalina Cox DO Attending Provider Malys, Catalina Primary Care Unavailable Malys, Catalina Referring Unavailable Ellsworth PRODUCT MARKETING SPECIALIST, Honey Attending Unavailable Malys, Catalina Primary Care Unavailable Merle Decker Attending Unavailabl e Leonarda Christine Attending Unavailable Malys, Catalina Primary Care Unavailable Malys, Catalina Primary Care Unavailable Romelia PRODUCT MARKETING SPECIALIST, Honey Attending Unavailable Romelia PRODUCT MARKETING SPECIALIST, Honey Referring Unavailable Malys, Catalina Primary Care Unavailable Malys, Catalina Attending Unavailable Malys, Catalina Primary Care Unavailable Romelia PRODUCT MARKETING SPECIALIST, Honey Attending Unavailable Ellsworth PRODUCT MARKETING SPECIALIST, Honey Referring Unavailable Allergies Allergy Classification Reported Allergen(s) Allergy Type Date of Onset Reaction(s) Facility (15 sources) Azithromycin Drug Allergy 03-17-2022 Vomiting [facility] (1 source) Azithromycin Drug Allergy 07-05-2024 [facility] Repository Medications Current Medications Medication Drug Class(es) Dates Sig (Normalized) Sig (Original) docosahexaenoic acid 200 mg oral capsule (9 sources) Start: 09-13-2022 Docosahexaenoic Acid ( Dha) 200 mg capsule Active mg PO September 13, 2022 1:00am FLUoxetine 10 mg oral capsule (9 sources) Serotonin Reuptake Inhibitor Start: 09-13-2022 take 1 capsule by mouth once daily Fluoxetine 10 mg capsule Active 10 mg PO DAILY September 13, 2022 1:00am Multivit 93-Rcaq-Pizzhu 1-Dha (Pnv-Dha) 27 mg iron-1 mg -300 mg capsule (2 sources) Start: 03-08-2022 Multivit 25-Btmx-Xwxsgg 1-Dha (Pnv-Dha) 27 mg iron-1 mg -300 mg capsule Active CAP PO March 08, 2022 12:00am norethindrone 0.35 mg oral tablet (3 sources) Start: 06-12-2023 End: 07-05-2024 take 1 tablet by mouth once daily Norethindrone (Contraceptive) (Darleen) 0.35 mg tablet Active 0.35 mg PO DAILY July 05, 2024 11:55am Completed/Discontinued Medications Medication Drug Class(es) Dates Sig (Normalized) Sig (Original) dicyclomine hydrochloride 10 mg oral capsule (13 sources) Anticholinergic Start: 03-28-2022 End: 05-01-2023 Dicyclomine 10 mg Capsule Discontinued 10 mg PO NEEDED as needed for IBS March 28, 2022 12:00am May 01, 2023 10:21am Norethindrone-E.Estra diol-Iron (15 sources) Estrogen Start: 09-21-2021 End: 03-08-2022 Norethindrone-E.Est radiol-Iron ([place] Fe 1-20 Eq (28)) 1 mg-20 mcg (21)/75 mg (7) tablet Discontinued 1 {tbl} PO DAILY September 21, 2021 12:00am March 08, 2022 2:42pm Start: 09-21-2021 End: 03-08-2022 take 1 tablet by mouth once daily Norethindrone-E.Estradiol-Iron ([place] F e 1-20 Eq (28)) 1 mg-20 mcg (21)/75 mg (7) tablet Discontinued 1 TABLET PO DAILY September 20, 2021 11:00pm March 08, 2022 1:42pm Start: 09-21-2021 End: 03-08-2022 take 1 tablet by mouth once daily Norethindrone-E.Estradiol-Iron ([place] F e 1-20 Eq (28)) 1 mg-20 mcg (21)/75 mg (7) tablet Discontinued 1 TABLET PO DAILY September 21, 2021 12:00am March 08, 2022 2:42pm medroxyPROGESTERone acetate 10 mg oral tablet (11 sources) Progestin Start: 05-17-2022 End: 05-27-2022 take 1 tablet by mouth once daily Medroxyprogesterone 10 mg tablet Discontinued 10 mg PO daily 04 18May 17, 2022 1:00am May 26, 2022 1:00am May 27, 2022 1:04am melatonin 3 mg oral capsule (15 sources) Start: 09-21-2021 End: 03-08-2022 take 1 capsule by mouth at bedtime as needed Melatonin 3 mg capsule Discontinued 3 mg PO BEDTIME as needed September 21, 2021 12:00am March 08, 2022 2:43pm Multivitamin preparation (14 sources) Start: 09-21-2021 End: 03-08-2022 take 1 tablet by mouth once daily Multivitamin Discontinued 1 TABLET PO DAILY September 20, 2021 11:00pm March 08, 2022 1:42pm Start: 09-21-2021 End: 03-08-2022 take 1 tablet by mouth once daily Multivitamin Discontinued 1 TABLET PO DAILY September 21, 2021 12:00am March 08, 2022 2:42pm Multivitamin tablet (1 source) Start: 09-21-2021 End: 03-08-2022 Multivitamin tablet Discontinued 1 {tbl} PO DAILY September 21, 2021 12:00am March 08, 2022 2:42pm naproxen 500 mg oral tablet (2 sources) Nonsteroidal Anti-inflammatory Drug Start: 05-01-2023 End: 05-15-2023 take 1 tablet by mouth twice daily as needed for pain Naproxen 500 mg tablet Discontinued 500 mg PO TWICE A DAY as needed for pain May 01, 2023 12:00am May 15, 2023 11:36am Problems Active Problems Problem Classification Problem Date Documented Date Episodic/Chronic Anxiety disorders (1 source) Mixed anxiety and depressive disorder; Translations: [Anxiety disorder, unspecified] 05-15-2023 Chronic Comment on above: prozac Hemorrhage during ; abruptio placenta; placenta previa (19 sources) Threatened miscarriage; Translations: [Threatened ] Episodic Comment on above: serial quants ordere d . Menstrual disorders (12 sources) Amenorrhea; Translations: [Amenorrhea, unspecified] Onset: 05-06-2025 08-26-2022 Chronic Mood disorders (19 sources) Depressive disorder; Translations: [Depression] Chronic Comment on above: No current treatment , cyclical Other complications of ; puerperium affecting management of mother (2 sources) Deliveries by ; Translations: [Encounter for delivery without indication] 05-03-2023 Episodic Comment on above: 05/01/23 PLTCS Girl Hanson(sp) JV distress Other complications of ; puerperium affecting management of mother (1 source) Encounter for delivery without indication; Translations: [ delivery, without mention of indication, delivered, with or without mention of antepartum condition] 05-03-2023 Episodic Other complications of (6 sources) Anemia in mother complicating , childbirth AND/OR puerperium; Translations: [Anemia complicating , second trimester] 01-31-2023 Chronic Comment on above: rpt CBC 4 wks: nl Other complications of (17 sources) Anemia complicating , second trimester; Translations: [Anemia of mother, antepartum condition or complication] 02-20-2023 Chronic Other complications of (20 sources) High risk ; Translations: [Supervision of high risk , unspecified, unspecified trimester] 03-29-2022 Episodic Comment on above: , JUANPABLO 10/24/22 Hu destiny Bennett PRR JUANPABLO 3 Girl Donald Other complications of (20 sources) Supervision of high risk , unspecified, unspecified trimester; Translations: [Supervision of unspecified high-risk ] Episodic Other complications of (11 sources) H/O: miscarriage; Translations: [Supervision of with other poor reproductive or obstetric history, unspecified trimester] 08-26-2022 Episodic Other complications of (9 sources) Depressive disorder in mother complicating ; Translations: [Other mental disorders complicating , unspecified trimester] 09-13-2022 Episodic Comment on above: depression and anxie ty-Prozac 10mg-stable Other complications of (20 sources) Other mental disorders complicating , unspecified trimester; Translations: [Mental disorders of mother, unspecified as to episode of care or not applicable] 09-22-2022 Episodic Other complications of (20 sources) Supervision of with other poor reproductive or obstetric history, unspecified trimester; Translations: [Supervision of high-risk with history of ] 09-22-2022 Episodic Other complications of (6 sources) Placenta succenturiata; Translations: [Other malformation of placenta, unspecified trimester] 01-30-2023 Episodic Comment on above: succenturiate lobe s een on anatomy scan. Growth US Q4w:04/10 30% and rpt 4 wk Other complications of (20 sources) Other malformation of placenta, unspecified trimester; Translations: [Other placental conditions, affecting management of mother, unspecified as to episode of care or not applicable] 01-06-2023 Episodic Other and delivery including normal (20 sources) ; Translations: [Encounter for supervision of normal , unspecified, unspecified trimester] Onset: 05-10-2025 Episodic Comment on above: discussed genetic & Carrier testing GBS neg, NIPT LR and carrier declined, nl anatomy Other upper respiratory disease (15 sources) Seasonal allergy; Translations: [Other seasonal allergic rhinitis] 03-29-2022 Chronic Comment on above: grass, ragweed, tree pollen Other upper respiratory disease (4 sources) Other seasonal allergic rhinitis; Translations: [Allergic rhinitis, cause unspecified] Chronic Polyhydramnios and other problems of amniotic cavity (5 sources) Amniotic fluid leaking; Translations: [Premature rupture of membranes, unspecified as to length of time between rupture and onset of labor, unspecified weeks of gestation] 03-23-2023 Episodic Comment on above: NEGATIVE ROM, resolv ed. Spontaneous (16 sources) with abortive outcome; Translations: [Incomplete spontaneous without complication] Onset: 05-17-2025 Episodic Comment on above: D&C scheduled 2 Past or Other Problems Problem Classification Problem Date Documented Da te Episodic/Chronic Other screening for suspected conditions (not mental disorders or infectious disease) (2 sources) Encounter for screening for diabetes mellitus; Translations: [Encounter for screening for malignant neoplasm of cervix] Onset: 07-29-2024 Episodic Unclassified (3 sources) Prolonged heart deceleration; Translations: [Prolonged heart deceleration] 05-02-2023 Comment on above: admit to WPIV fluid bolusAROM, internal FSE Unclassified (3 sources) Spontaneous onset of labor; Translations: [Spontaneous onset of labor] 05-02-2023 Comment on above: GBs negative. plans epidural Results Test Name Value Interpretation Reference Range Facility hCG Titer Quant., Serumon HCG QUANT. < 1 Normal <9 [facility] Comment on above: Result Comment: Gest ational Age 0.2-1 Week: 5-50 mIU/mL 1-2 Weeks: 50-500 mIU/mL 2-3 Weeks: 100-5000 mIU/mL 3-4 Weeks: 500-10,000 mIU/mL 4-5 Weeks:1000-50,000 mIU/mL 5-6 Weeks: 10,000-100,000 mIU/mL 6-8 Weeks: 15,000-200,000 mIU/mL 2-3 Months:10,000-100,000 mIU/mL Performed By: #### L 700.8000 #### [facility] [address] [place], [address] hCG Titer Quant., Serumon HCG QUANT. 15 mIU/mL High <9 [facility] Comment on above: Result Comment: Gest ational Age 0.2-1 Week: 5-50 mIU/mL 1-2 Weeks: 50-500 mIU/mL 2-3 Weeks: 100-5000 mIU/mL 3-4 Weeks: 500-10,000 mIU/mL 4-5 Weeks:1000-50,000 mIU/mL 5-6 Weeks: 10,000-100,000 mIU/mL 6-8 Weeks: 15,000-200,000 mIU/mL 2-3 Months:10,000-100,000 mIU/mL Performed By: #### L 700.8000 #### [facility] [address] [place], [address] hCG Titer Quant., Serumon HCG QUANT. 21 mIU/mL High <9 [facility] Comment on above: Result Comment: Gest ational Age 0.2-1 Week: 5-50 mIU/mL 1-2 Weeks: 50-500 mIU/mL 2-3 Weeks: 100-5000 mIU/mL 3-4 Weeks: 500-10,000 mIU/mL 4-5 Weeks:1000-50,000 mIU/mL 5-6 Weeks: 10,000-100,000 mIU/mL 6-8 Weeks: 15,000-200,000 mIU/mL 2-3 Months:10,000-100,000 mIU/mL Performed By: #### L 700.8000 #### [facility] [address] [place], [place], [id number] Calculated very low density lipoprotein (VLDL) cholesterol measurementOrdered By: Catalina Cox on 12-26-2024 Calculated very low density lipoprotein (VLDL) cholesterol measurement 8 mg/dL [facility] LDL calc ser/plasOrdered By: Catalina Cox on 12-26-2024 Cholesterol in LDL [Mass/Vol] 130 mg/dL Normal [facility] Comment on above: Cumjvtghka=010-028 m g/dL & Higher Xbsb=549 mg/dL or greater Result Comment: Bord gskasj=121-510 mg/dL Higher Pswx=688 mg/dL or greater Performed By: #### L 500.4100, L501.0100 #### [facility] [address] [place], [place], [id number] Lipid Profileon 12-26-2024 CHOL:HDL 3.08 Normal [facility] Comment on above: Performed By: #### L 500.4100, L501.0100 #### [facility] [address] [place], [place], [address] Cholesterol in VLDL [Mass/Vol] 8 mg/dL Normal [facility] Comment on above: Performed By: #### L 500.4100, L501.0100 #### [facility] [address] [place], [place], [address] Screening total cholesterol/ high density lipoprotein (HDL) cholesterol ratioOrdered By: Catalina Cox on 12-26-2024 Cholesterol.total/Cami sterol in HDL [Mass ratio] 3.08 {ratio} [facility] Serum glucose measurement (m ass/volume)Ordered By: Catalina Cox on 12-26-2024 Glucose [Mass/Vol] 79 mg/dL Normal 70-99 [facility] Comment on above: Performed By: #### L 500.4100, L501.0100 #### [facility] [address] [place], [place], [address] Serum or plasma cholesterol in HDL measurement (mass/volume)Ordered By: Catalina Velamalini on 12-26-2024 Cholesterol in HDL [Mass/Vol] 66 mg/dL Normal [facility] Comment on above: National Cholesterol Education Program (NCEP) guidelines:<40 mg/dL: Low HDL-cholesterol (major risk factor for CHD)>= 60 mg/dL: High HDL-cholesterol (negative risk factor for CHD)HDL-cholesterol is affected by a number of factors, e.g. smoking, exercise, hormones, sex and age. Result Comment: Cynthia onal Cholesterol Education Program (NCEP) guidelines: <40 mg/dL: Low HDL-cholesterol (major risk factor for CHD) >= 60 mg/dL: High HDL-cholesterol (negative risk factor for CHD) HDL-cholesterol is affected by a number of factors, e.g. smoking, exercise, hormones, sex and age. Performed By: #### L 500.4100, L501.0100 #### [facility] [address] [place], [place], [address] Serum or plasma cholesterol measurement (mass/volume)Ordered By: Catalina Cox on 12-26-2024 Cholesterol [Mass/Vol] 204 mg/dL High <=200 [facility] Comment on above: Cholesterol level, D esirable <200 mg/dLBorderline high cholesterol 200-239 mg/dLHigh cholesterol >=240 mg/dLRecommendations of the NCEP Adult Treatment Panel for the following risk-cutoff thresholds for the [place] population. Result Comment: Chol esterol level, Desirable <200 mg/dL Borderline high cholesterol 200-239 mg/dL High cholesterol >=240 mg/dL Recommendations of the NCEP Adult Treatment Panel for the following risk-cutoff thresholds for the [place] population. Performed By: #### L 500.4100, L501.0100 #### [facility] [address] [place], [place], [address] Triglycerides measurementOrd ered By: Catalina Cox on 12-26-2024 Triglyceride [Mass/Vol] 40 mg/dL Normal [facility] Comment on above: The drugs N-Acetylcy steine and Metamizole may falsely depress this assay. Normal range: <150 mg/dLBorderline High: 150-199 mg/dLHigh: 200-499 mg/dLVery High: >500 mg/dL Result Comment: The drugs N-Acetylcysteine and Metamizole may falsely depress this assay. Normal range: <150 mg/dL Borderline High: 150-199 mg/dL High: 200-499 mg/dL Very High: >500 mg/dL Performed By: #### L 500.4100, L501.0100 #### [facility] [address] [place], [place], [address] PAP I-G w/rfx hrHPV-Aptimaon 07-12-2024 ADEQ Comment Normal . [facility] Comment on above: Order Comment: Speci men Comment: [id number] Specimen Comment: Source.............Cervix;Endocervix Specimen Comment: No. of containers..01 ThinPrep Vial Result Comment: Sati sfactory for evaluation. Endocervical and/or squamous metaplastic cells (endocervical component) are present. Performed By: #### L 7400.0353 #### [facility] [address] [place], [address] COMM . Normal . [facility] Comment on above: Order Comment: Speci men Comment: [id number] Specimen Comment: Source.............Cervix;Endocervix Specimen Comment: No. of containers..01 ThinPrep Vial Performed By: #### L 7400.0353 #### [facility] [address] [place], [place], [address] COMMENT Comment Normal . [facility] Comment on above: Order Comment: Speci men Comment: [id number] Specimen Comment: Source.............Cervix;Endocervix Specimen Comment: No. of containers..01 ThinPrep Vial Result Comment: This liquid based ThinPrep(R) pap test was screened with the use of an image guided system. Performed By: #### L 7400.0353 #### [facility] [address] [place], [place], [address] DIAG Comment Normal . [facility] Comment on above: Order Comment: Speci men Comment: [id number] Specimen Comment: Source.............Cervix;Endocervix Specimen Comment: No. of containers..01 ThinPrep Vial Result Comment: NEGA TIVE FOR INTRAEPITHELIAL LESION OR MALIGNANCY. Performed By: #### L 7400.0353 #### [facility] [address] [place], [place], [address] HPV RFLX Comment Normal . [facility] Comment on above: Order Comment: Speci men Comment: [id number] Specimen Comment: Source.............Cervix;Endocervix Specimen Comment: No. of containers..01 ThinPrep Vial Result Comment: The HPV DNA reflex criteria were not met with this specimen result therefore, no HPV testing was performed. Performed at: [facility] [address] [id number] Pull Up Hand: Panfilo Lomeli MD, Phone: [phone] Performed at: [facility] [id number] Pull Up Hand: Kimberly Zee MD, Phone: [phone] Performed By: #### L 7400.0353 #### [facility] [address] [place], [place], [address] PAPSMR Comment Normal . [facility] Comment on above: Order Comment: Speci men Comment: [id number] Specimen Comment: Source.............Cervix;Endocervix Specimen Comment: No. of containers..01 ThinPrep Vial Result Comment: The Pap smear is a screening test designed to aid in the detection of premalignant and malignant conditions of the uterine cervix. It is not a diagnostic procedure and should not be used as the sole means of detecting cervical cancer. Both false-positive and false-negative reports do occur. Performed By: #### L 7400.0353 #### [facility] [address] [place], [place], [address] PERFORM Comment Normal . [facility] Comment on above: Order Comment: Speci men Comment: [id number] Specimen Comment: Source.............Cervix;Endocervix Specimen Comment: No. of containers..01 ThinPrep Vial Result Comment: Jordana Lewis, Integrated Circuits Inspector (ASCP) Performed By: #### L 7400.0353 #### [facility] [address] [place], [place], [address] [employer] Office Visit Reporton 07-05-2024 [employer] Office Visit Report [facility] [address], [address] [place] [address] OFFICE VISIT Date of Service: 07/05/24 MR#: [id number] Acct: [id number] Name: ELAN VANG Rep #: [id number] : 2000 Provider: JAMES finley Age/Sex: 23/F Location: [facility] – [place] Status: Signed Intake Vital Signs 06/12/23 11:30 07/05/24 10:44 Height 5 ft 3 in 5 ft 3 in Weight: 132 lb BMI 23.3 BP 107/72 Intake Visit Reasons: Annual (CHUTE [employer]ER) Personal Injury Legal Assistant Required: No Is patient in pain?: No Allergies azithromycin Allergy (Intermediate, Verified 07/05/24 11:21) Vomiting Medications ???Medication ???Instructions ???Recorded ???Confirmed ???Type docosahexaenoic acid 200 mg mg PO 09/13/22 07/05/24 History capsule ( DHA) fluoxetine 10 mg capsule 10 mg PO DAILY 09/13/22 07/05/24 History norethindrone (contraceptive) 0.35 0.35 mg PO DAILY #84 tabs 07/05/24 07/05/24 Rx mg tablet (Darleen) Is last menstrual period known: No Post menopausal: No Patient : No : Yes Control Method: ocp PFSH Medical History Placental abnormality History of spontaneous Wears contact lenses Depression Anxiety Alcohol use History of IBS Non-smoker Surgical History History of D C Hx of wisdom tooth extraction Social History adopted: No household members: spouse housing: house current occupational status: employed current occupation: [employer] current occupational exposures/hazards: No pets and animals: Yes pets and animals: dog(s) history of recent travel: No ([facility]) sexually active: Yes Smoking Status: Never smoker Electronic Cigarette Use: not used alcohol intake: former details: social prior to substance use type: does not use well-balanced diet: daily or most days caffeine: Yes (occasionally) Type: coffee Number of servings: 1 eating out: 1-3 times/week during the past year weight has: remained stable what type of physical activity do you participate in: walking frequency: 3-4 times per week duration: 15-30 minutes/day chelsi/jewish: Gnosticist seatbelt use: always do you feel safe at home: Yes additional social history: - [employer] History 2 Elective abortions Hx Para 0 Spontaneous abortions 1 Hx # Term Pregnancies Ectopic pregnancies Hx # Pregnancies Multiple births # of living children 0 Past Pregnancies Del. Date Name GA/Weeks Outcome Route Bth Weight Infant Gen Labor Lgth Anesthesia Del Locatn Provider FOB 03/29/22 spontaneous 05/01/23 Hanson 40 live - full term 6lbs 6oz Female spinal WC JV Delivery Date: 05/01/23 Last Updated by: Amelia Diaz decelerations and bradycardia HPI Encounter for routine gynecological examination Details: ELAN VANG is a 23 year old who presents for annual exam. No menses with darleen Last PAP: 2020; normal History of abnormal PAP: no Last mammogram: age 38 History of abnormal mammogram: n/a Colon cancer screening: age 43 Other preventative health care screenings: Malys Female Reproductive History Questions: metorrhagia: No, sexually active: Yes, dyspareunia: No and PCB: No ROS Const Constitutional: Denies fatigue, weight gain or weight loss Cardio Card: Denies chest pain Resp Resp: Denies cough or dyspnea on exertion GI GI: Denies abdominal pain, bloating, change in stool character, constipation or vomiting : Reports as per HPI; Denies difficulty voiding, pelvic pain, urinary frequency, urinary incontinence, urinary urgency, vaginal discharge or vaginal pruritus Exam Const General: cooperative, healthy appearing, no acute distress and well developed Orientation: alert, oriented to person and oriented to place HENIA Head: normal to inspection Neck Neck: normal visual inspection Thyroid: thyroid normal Lymphatic: no lymphadenopathy noted Chest Breast inspection: normal inspection of the breasts and normal inspection of the axillae Breast palpation: normal palpation of the breasts, normal palpation of the axillae and no axillary lymphadenopathy Resp Effort Inspection: normal respiratory effort GI Palpation: soft, no masses and nontender Rectal Exam: deferred External Female Exam: normal external appearance and normal appearance of the urethra Urethra: normal appearance of the urethra and normal palpation Speculum Exam - Vagina: normal appearance of the vagina and normal vaginal discharge Speculum Exam - Cervix: normal appearance of the cervix Bimanual Exam- Vagina Uterus: normal bimanual exam, pancho (more content not included)... Normal [facility] Basophil percentageOrdered B y: Merle Estrella on 05-02-2023 WBC (Bld) [#/Vol] 17.1 10*3/uL 4.4-11.0 [facility] Blood erythrocytes count (nu mber/volume)Ordered By: Merle Estrella on 05-02-2023 RBC (Bld) [#/Vol] 2.94 10*6/uL 4.2-5.4 [facility] Blood hemoglobin measurement (mass/volume)Ordered By: Merle Estrella on 05-02-2023 Hemoglobin (Bld) [Mass/Vol] 9.3 g/dL 12.0-15.0 [facility] Blood platelet mean volumeOr dered By: Merle Estrella on 05-02-2023 Platelet mean volume (Bld) [Entitic vol] 10.8 fL 6.2-12.0 [facility] Determination of erythrocyte mean corpuscular volume (MCV)Ordered By: Merle Estrella on 05-02-2023 MCV (RBC) [Entitic vol] 94.9 fL 81-99 [facility] Hematocrit Auto (Bld) [Volum e fraction]Ordered By: Merle Estrella on 05-02-2023 Hematocrit (Bld) [Volume fraction] 27.9 % 37-47 [facility] Laboratory - Hematology and Cell countsOrdered By: Merle Estrella on 05-02-2023 Erythrocyte distribution width (RBC) [Entitic vol] 43.2 fL 35.1-43.9 [facility] Erythrocyte distribution width (RBC) [Ratio] 12.4 % 11.6-14.6 [facility] MCH (RBC) [Entitic mass] 31.6 pg 27.0-32.0 [facility] MCHC Auto (RBC) [Mass/Vol]Or dered By: Merle Estrella on 05-02-2023 MCHC (RBC) [Mass/Vol] 33.3 g/dL 32-36 [facility] Platelets bldOrdered By: Shannan Estrella on 05-02-2023 Platelets (Bld) [#/Vol] 150 10*3/uL 150-450 [facility] Absolute lymphocyte countOrd ered By: Deepthi Franco on 05-01-2023 Lymphocytes Auto (Unsp spec) [#/Vol] 1.56 10*3/uL 0.83-4.51 [facility] Basophil percentageOrdered B y: Deepthi Franco on 05-01-2023 Basophils/100 WBC (Bld) 0.3 % 0-1 [facility] Eosinophils/100 WBC (Bld) 0.3 % 0-5 [facility] Neutrophils (Bld) [#/Vol] 10.4 10*3/uL 2.0-7.7 [facility] Neutrophils/100 WBC (Bld) 82.4 % 47-70 [facility] Blood lymphocytes/100 leukoc ytesOrdered By: Deepthi Franco on 05-01-2023 Lymphocytes/100 WBC (Bld) 12.4 % 19-41 [facility] Blood monocytes/100 leukocyt esOrdered By: Deepthi Franco on 05-01-2023 Monocytes/100 WBC (Bld) 4.0 % 0-10 [facility] Laboratory - Hematology and Cell countsOrdered By: Deepthi Franco on 05-01-2023 Immature granulocytes/100 WBC (Bld) 0.600 % 0.0-0.9 [facility] Comment on above: IG% - Immature Granu locytes (promyelocytes, myelocytes and metamyelocytes) > 1% indicates that a LEFT SHIFT is Present. Nucleated RBC/100 WBC (Bld) [Ratio] 0 % 0-5 [facility] No Panel InformationOrdered By: Deepthi Franco on 05-01-2023 Vaginal Amniotic Fluid Detection Negative Negative [facility] Comment on above: Amniotic fluid not p resent indicates No Rupture of FetalMembranes at time of specimen collection. Serum Treponema species anti body detectionOrdered By: Deepthi Franco on 05-01-2023 Treponema sp Ab Ql (S) Non-Reactive [facility] Laboratory - Chemistry and C hemistry - challengeon 04-24-2023 Glucose Ql (U) Negative [facility] Laboratory - Urinalysison Protein Ql (U) Negative [facility] No Panel InformationOrdered By: Deepthi Franco on 04-24-2023 Vaginal Amniotic Fluid Detection Negative Negative [facility] Comment on above: Amniotic fluid not p resent indicates No Rupture of FetalMembranes at time of specimen collection. Laboratory - Chemistry and C hemistry - challengeon 04-20-2023 Glucose Ql (U) Negative [facility] Laboratory - Urinalysison Protein Ql (U) Negative [facility] Laboratory - Chemistry and C hemistry - challengeon 04-10-2023 Glucose Ql (U) Negative [facility] Laboratory - Urinalysison Protein Ql (U) Negative [facility] No Panel InformationOrdered By: Leonarda Christine on 04-06-2023 Group B Streptococcus Culture Group B Beta Streptococcus is not isolated. [facility] Laboratory - Chemistry and C hemistry - challengeon 03-23-2023 Glucose Ql (U) Negative [facility] Laboratory - Urinalysison Protein Ql (U) Negative [facility] No Panel InformationOrdered By: Deepthi Franco on 03-06-2023 Vaginal Amniotic Fluid Detection Negative Negative [facility] Comment on above: Amniotic fluid not p resent indicates No Rupture of FetalMembranes at time of specimen collection. Absolute lymphocyte countOrd ered By: Honey León on 02-27-2023 Lymphocytes Auto (Unsp spec) [#/Vol] 2.12 10*3/uL 0.83-4.51 [facility] Basophil percentageOrdered B y: Honey León on 02-27-2023 Basophils/100 WBC (Bld) 0.3 % 0-1 [facility] Eosinophils/100 WBC (Bld) 0.5 % 0-5 [facility] Neutrophils (Bld) [#/Vol] 11.0 10*3/uL 2.0-7.7 [facility] Neutrophils/100 WBC (Bld) 79.0 % 47-70 [facility] WBC (Bld) [#/Vol] 13.9 10*3/uL 4.4-11.0 [facility] Blood erythrocytes count (nu mber/volume)Ordered By: Honey León on 02-27-2023 RBC (Bld) [#/Vol] 3.71 10*6/uL 4.2-5.4 [facility] Blood hemoglobin measurement (mass/volume)Ordered By: Honey León on 02-27-2023 Hemoglobin (Bld) [Mass/Vol] 11.4 g/dL 12.0-15.0 [facility] Blood lymphocytes/100 leukoc ytesOrdered By: Honey León on 02-27-2023 Lymphocytes/100 WBC (Bld) 15.2 % 19-41 [facility] Blood monocytes/100 leukocyt esOrdered By: Honey León on 02-27-2023 Monocytes/100 WBC (Bld) 4.6 % 0-10 [facility] Blood platelet mean volumeOr dered By: Honey León on 02-27-2023 Platelet mean volume (Bld) [Entitic vol] 10.6 fL 6.2-12.0 [facility] Determination of erythrocyte mean corpuscular volume (MCV)Ordered By: Honey León on 02-27-2023 MCV (RBC) [Entitic vol] 94.6 fL 81-99 [facility] Hematocrit Auto (Bld) [Volum e fraction]Ordered By: Honey León on 02-27-2023 Hematocrit (Bld) [Volume fraction] 35.1 % 37-47 [facility] Laboratory - Hematology and Cell countsOrdered By: Honey León on 02-27-2023 Erythrocyte distribution width (RBC) [Entitic vol] 43.3 fL 35.1-43.9 [facility] Erythrocyte distribution width (RBC) [Ratio] 12.6 % 11.6-14.6 [facility] Immature granulocytes/100 WBC (Bld) 0.400 % 0.0-0.9 [facility] Comment on above: IG% - Immature Granu locytes (promyelocytes, myelocytes and metamyelocytes) > 1% indicates that a LEFT SHIFT is Present. MCH (RBC) [Entitic mass] 30.7 pg 27.0-32.0 [facility] Nucleated RBC/100 WBC (Bld) [Ratio] 0 % 0-5 [facility] MCHC Auto (RBC) [Mass/Vol]Or dered By: Honey León on 02-27-2023 MCHC (RBC) [Mass/Vol] 32.5 g/dL 32-36 [facility] Platelets bldOrdered By: Carlene León on 02-27-2023 Platelets (Bld) [#/Vol] 242 10*3/uL 150-450 [facility] Laboratory - Chemistry and C hemistry - challengeon 02-20-2023 Glucose Ql (U) Negative [facility] Laboratory - Urinalysison Protein Ql (U) Negative [facility] Absolute lymphocyte countOrd ered By: Honey León on 01-30-2023 Lymphocytes Auto (Unsp spec) [#/Vol] 1.59 10*3/uL 0.83-4.51 [facility] Basophil percentageOrdered B y: Honey León on 01-30-2023 Basophils/100 WBC (Bld) 0.4 % 0-1 [facility] Eosinophils/100 WBC (Bld) 0.9 % 0-5 [facility] Neutrophils (Bld) [#/Vol] 8.3 10*3/uL 2.0-7.7 [facility] Neutrophils/100 WBC (Bld) 78.5 % 47-70 [facility] WBC (Bld) [#/Vol] 10.6 10*3/uL 4.4-11.0 [facility] Blood erythrocytes count (nu mber/volume)Ordered By: Honey León on 01-30-2023 RBC (Bld) [#/Vol] 3.57 10*6/uL 4.2-5.4 [facility] Blood hemoglobin measurement (mass/volume)Ordered By: Honey León on 01-30-2023 Hemoglobin (Bld) [Mass/Vol] 10.8 g/dL 12.0-15.0 [facility] Blood lymphocytes/100 leukoc ytesOrdered By: Honey León on 01-30-2023 Lymphocytes/100 WBC (Bld) 15.1 % 19-41 [facility] Blood monocytes/100 leukocyt esOrdered By: Honey León on 01-30-2023 Monocytes/100 WBC (Bld) 4.5 % 0-10 [facility] Blood platelet mean volumeOr dered By: Honey León on 01-30-2023 Platelet mean volume (Bld) [Entitic vol] 10.3 fL 6.2-12.0 [facility] Determination of erythrocyte mean corpuscular volume (MCV)Ordered By: Honey León on 01-30-2023 MCV (RBC) [Entitic vol] 91.9 fL 81-99 [facility] Gestational diabetes screen 1-hour screen with 50g oral glucose loadOrdered By: Honey León on 01-30-2023 Glucose 1 Hr post 50 g glucose PO [Mass/Vol] 123 mg/dL 70-140 [facility] HIV 1 and HIV-2 antibody ass ay with HIV-1 p24 antigen detectionOrdered By: Honey León on 01-30-2023 HIV 1+2 Ab+HIV1 p24 Ag IA Ql Non-Reactive Nonreactive [facility] Hematocrit Auto (Bld) [Volum e fraction]Ordered By: Honey León on 01-30-2023 Hematocrit (Bld) [Volume fraction] 32.8 % 37-47 [facility] Laboratory - Chemistry and C hemistry - challengeon 01-30-2023 Glucose Ql (U) Negative [facility] Laboratory - Hematology and Cell countsOrdered By: Honey León on 01-30-2023 Erythrocyte distribution width (RBC) [Entitic vol] 40.7 fL 35.1-43.9 [facility] Erythrocyte distribution width (RBC) [Ratio] 12.1 % 11.6-14.6 [facility] Immature granulocytes/100 WBC (Bld) 0.600 % 0.0-0.9 [facility] Comment on above: IG% - Immature Granu locytes (promyelocytes, myelocytes and metamyelocytes) > 1% indicates that a LEFT SHIFT is Present. MCH (RBC) [Entitic mass] 30.3 pg 27.0-32.0 [facility] Nucleated RBC/100 WBC (Bld) [Ratio] 0 % 0-5 [facility] Laboratory - Urinalysison Protein Ql (U) Negative [facility] MCHC Auto (RBC) [Mass/Vol]Or dered By: Honey León on 01-30-2023 MCHC (RBC) [Mass/Vol] 32.9 g/dL 32-36 [facility] Platelets bldOrdered By: Carlene León on 01-30-2023 Platelets (Bld) [#/Vol] 221 10*3/uL 150-450 [facility] Serum Treponema species anti body detectionOrdered By: Honey León on 01-30-2023 Treponema sp Ab Ql (S) Non-Reactive [facility] Laboratory - Chemistry and C hemistry - challengeon 01-06-2023 Glucose Ql (U) Negative [facility] Laboratory - Urinalysison Protein Ql (U) Negative [facility] Laboratory - Chemistry and C hemistry - challengeon 12-07-2022 Glucose Ql (U) Negative [facility] Laboratory - Urinalysison Protein Ql (U) Trace [facility] Absolute lymphocyte countOrd ered By: Amy Rainey on 11-25-2022 Lymphocytes Auto (Unsp spec) [#/Vol] 1.56 10*3/uL 0.83-4.51 [facility] Basophil percentageOrdered B y: Amy Rainey on 11-25-2022 Basophils/100 WBC (Bld) 0.3 % 0-1 [facility] Bilirubin [Mass/Vol] 0.30 mg/dL 0.20-1.00 [facility] Comment on above: For patients on eltr ombopag therapy, use of Dimension [place] TBIL is not recommended. Chloride [Moles/Vol] 108 mmol/L 98-107 [facility] Cholesterol [Mass/Vol] 267 mg/dL <200 [facility] Comment on above: <200 mg/dL Desirable 200-240 mg/dL Borderline >240 mg/dL High Risk Eosinophils/100 WBC (Bld) 0.9 % 0-5 [facility] Glucose [Mass/Vol] 77 mg/dL 74-106 [facility] Neutrophils (Bld) [#/Vol] 6.6 10*3/uL 2.0-7.7 [facility] Neutrophils/100 WBC (Bld) 74.9 % 47-70 [facility] Potassium [Moles/Vol] 3.6 mmol/L 3.5-5.1 [facility] Protein [Mass/Vol] 7.1 g/dL 6.4-8.2 [facility] Sodium [Moles/Vol] 138 mmol/L 136-145 [facility] Triglyceride [Mass/Vol] 71 mg/dL <199 [facility] Comment on above: The drugs N-Acetylcy steine and Metamizole may falsely depress this assay.Serum Triglycerides Reference Interval Normal <150 mg/dL Borderline high 150 - 199 mg/dL High 200 - 499 mg/dL Very High > or = 500 mg/dL WBC (Bld) [#/Vol] 8.8 10*3/uL 4.4-11.0 [facility] Blood erythrocytes count (nu mber/volume)Ordered By: Amy Rainey on 11-25-2022 RBC (Bld) [#/Vol] 3.65 10*6/uL 4.2-5.4 [facility] Blood hemoglobin measurement (mass/volume)Ordered By: Amy Rainey on 11-25-2022 Hemoglobin (Bld) [Mass/Vol] 11.0 g/dL 12.0-15.0 [facility] Blood lymphocytes/100 leukoc ytesOrdered By: Amynicola Rainey on 11-25-2022 Lymphocytes/100 WBC (Bld) 17.8 % 19-41 [facility] Blood monocytes/100 leukocyt esOrdered By: Wheaton Redd on 11-25-2022 Monocytes/100 WBC (Bld) 5.8 % 0-10 [facility] Blood platelet mean volumeOr dered By: Amy Rainey on 11-25-2022 Platelet mean volume (Bld) [Entitic vol] 10.4 fL 6.2-12.0 [facility] Determination of erythrocyte mean corpuscular volume (MCV)Ordered By: Amynicola Rainey on 11-25-2022 MCV (RBC) [Entitic vol] 91.2 fL 81-99 [facility] Hematocrit Auto (Bld) [Volum e fraction]Ordered By: Amynicola Rainey on 11-25-2022 Hematocrit (Bld) [Volume fraction] 33.3 % 37-47 [facility] Laboratory - Chemistry and C hemistry - challengeOrdered By: Amy Rainey on 11-25-2022 ALP [Catalytic activity/Vol] 61 U/L 45-117 [facility] ALT [Catalytic activity/Vol] 32 U/L 13-56 [facility] CO2 [Moles/Vol] 24.0 mmol/L 21.0-32.0 [facility] Globulin (S) [Mass/Vol] 4.0 g/dL 2.2-4.2 [facility] Urea nitrogen/Creatinine [Mass ratio] 16.5 mg/mg 10-20 [facility] Laboratory - Hematology and Cell countsOrdered By: Amy Rainey on 11-25-2022 Erythrocyte distribution width (RBC) [Entitic vol] 41.2 fL 35.1-43.9 [facility] Erythrocyte distribution width (RBC) [Ratio] 12.3 % 11.6-14.6 [facility] Immature granulocytes/100 WBC (Bld) 0.300 % 0.0-0.9 [facility] Comment on above: IG% - Immature Granu locytes (promyelocytes, myelocytes and metamyelocytes) > 1% indicates that a LEFT SHIFT is Present. MCH (RBC) [Entitic mass] 30.1 pg 27.0-32.0 [facility] Nucleated RBC/100 WBC (Bld) [Ratio] 0 % 0-5 [facility] MCHC Auto (RBC) [Mass/Vol]Or dered By: Amy Rainey on 11-25-2022 MCHC (RBC) [Mass/Vol] 33.0 g/dL 32-36 [facility] No Panel InformationOrdered By: Amy Rainey on 11-25-2022 Estimated GFR (MDRD) Amer 177 mL/min >60 [facility] Comment on above: GFR Calc Estimated GFR (MDRD) Non-Af Amer 146 mL/min >60 [facility] Comment on above: Non- GFR Calc Platelets bldOrdered By: Steffanie Rainey on 11-25-2022 Platelets (Bld) [#/Vol] 254 10*3/uL 150-450 [facility] Serum or plasma albumin rosanna urement (mass/volume)Ordered By: Amy Rainey on 11-25-2022 Albumin [Mass/Vol] 3.1 g/dL 3.2-5.0 [facility] Serum or plasma albumin/glob ulin mass ratioOrdered By: Amy Rainey on 11-25-2022 Albumin/Globulin [Mass ratio] 0.8 {ratio} 0.9-2.4 [facility] Serum or plasma calcium rosanna urement (mass/volume)Ordered By: Amy Rainey on 11-25-2022 Calcium [Mass/Vol] 9.1 mg/dL 8.5-10.1 [facility] Serum or plasma cholesterol in HDL measurement (mass/volume)Ordered By: Amy Rainey on 11-25-2022 Cholesterol in HDL [Mass/Vol] 86 mg/dL >40 [facility] Comment on above: The drugs N-Acetylcy steine and Metamizole may falsely depress this assay. Reference Range HDL <40 mg/dL Low HDL Cholesterol HDL >or= 60 mg/dL High HDL Cholesterol Serum or plasma cholesterol in VLDL measurement (mass/volume)Ordered By: Amy Rainey on 11-25-2022 Cholesterol in VLDL [Mass/Vol] 14 mg/dL 5-40 [facility] Serum or plasma creatinine m easurement (mass/volume)Ordered By: Amy Rainey on 11-25-2022 Creatinine [Mass/Vol] 0.54 mg/dL 0.55-1.02 [facility] Comment on above: The validity of the calculated GFR & GFRAA in patients over 70 years has not been determined. Clinical correlation is essential. Serum or plasma low density lipoprotein (LDL) cholesterol measurement (mass/volume)Ordered By: Amy Rainey on 11-25-2022 Cholesterol in LDL [Mass/Vol] 167 mg/dL 0-130 [facility] Serum or plasma urea nitroge n measurement (mass/volume)Ordered By: Amy Rainey on 11-25-2022 Urea nitrogen [Mass/Vol] 9 mg/dL 7-18 [facility] Thin prep Papanicolaou smear with manual screeningOrdered By: Amy Rainey on 11-25-2022 Thin prep Papanicolaou smear with manual screening 25 U/L 15-37 [facility] Thin prep Papanicolaou smear with manual screening 6 5-15 [facility] Laboratory - Chemistry and C hemistry - challengeon 11-09-2022 Glucose Ql (U) Negative [facility] Laboratory - Urinalysison Protein Ql (U) Negative [facility] No Panel InformationOrdered By: Dr. Christine on 10-14-2022 Miscellaneous Test Comment MAILED SPECIMEN [facility] Absolute lymphocyte countOrd ered By: Dr. Estrella on 10-11-2022 Lymphocytes Auto (Unsp spec) [#/Vol] 1.81 10*3/uL 0.83-4.51 [facility] Basophil percentageOrdered B y: Dr. Estrella on 10-11-2022 Basophils/100 WBC (Bld) 0.2 % 0-1 [facility] Eosinophils/100 WBC (Bld) 0.6 % 0-5 [facility] Neutrophils (Bld) [#/Vol] 6.7 10*3/uL 2.0-7.7 [facility] Neutrophils/100 WBC (Bld) 74.2 % 47-70 [facility] WBC (Bld) [#/Vol] 9.0 10*3/uL 4.4-11.0 [facility] Blood erythrocytes count (nu mber/volume)Ordered By: Dr. Estrella on 10-11-2022 RBC (Bld) [#/Vol] 3.95 10*6/uL 4.2-5.4 [facility] Blood hemoglobin measurement (mass/volume)Ordered By: Dr. Estrella on 10-11-2022 Hemoglobin (Bld) [Mass/Vol] 11.8 g/dL 12.0-15.0 [facility] Blood lymphocytes/100 leukoc ytesOrdered By: Dr. Estrella on 10-11-2022 Lymphocytes/100 WBC (Bld) 20.1 % 19-41 [facility] Blood monocytes/100 leukocyt esOrdered By: Dr. Estrella on 10-11-2022 Monocytes/100 WBC (Bld) 4.7 % 0-10 [facility] Blood platelet mean volumeOr dered By: Dr. Estrella on 10-11-2022 Platelet mean volume (Bld) [Entitic vol] 9.5 fL 6.2-12.0 [facility] Determination of erythrocyte mean corpuscular volume (MCV)Ordered By: Dr. Estrella on 10-11-2022 MCV (RBC) [Entitic vol] 87.8 fL 81-99 [facility] HIV 1 and HIV-2 antibody ass ay with HIV-1 p24 antigen detectionOrdered By: Dr. Estrella on 10-11-2022 HIV 1+2 Ab+HIV1 p24 Ag IA Ql Non-Reactive Nonreactive [facility] Hematocrit Auto (Bld) [Volum e fraction]Ordered By: Dr. Estrella on 10-11-2022 Hematocrit (Bld) [Volume fraction] 34.7 % 37-47 [facility] Laboratory - Chemistry and C hemistry - challengeon 10-11-2022 Glucose Ql (U) Negative [facility] Laboratory - Hematology and Cell countsOrdered By: Dr. Estrella on 10-11-2022 Erythrocyte distribution width (RBC) [Entitic vol] 38.6 fL 35.1-43.9 [facility] Erythrocyte distribution width (RBC) [Ratio] 12.0 % 11.6-14.6 [facility] Immature granulocytes/100 WBC (Bld) 0.200 % 0.0-0.9 [facility] Comment on above: IG% - Immature Granu locytes (promyelocytes, myelocytes and metamyelocytes) > 1% indicates that a LEFT SHIFT is Present. MCH (RBC) [Entitic mass] 29.9 pg 27.0-32.0 [facility] Nucleated RBC/100 WBC (Bld) [Ratio] 0 % 0-5 [facility] Laboratory - Urinalysison Protein Ql (U) Negative [facility] MCHC Auto (RBC) [Mass/Vol]Or dered By: Dr. Estrella on 10-11-2022 MCHC (RBC) [Mass/Vol] 34.0 g/dL 32-36 [facility] No Panel InformationOrdered By: Dr. Estrella on 10-11-2022 Hepatitis B Surface Antigen Non-Reactive Nonreactive [facility] Hepatitis C Antibody Non-Reactive Nonreactive [facility] Comment on above: Non Reactive: < 0.8 Equivocal: >/= 0.8 to < 1.0 Reactive: >/= 1.0The CDC recommends that a reactive/equivocal HCV antibody result be followed up by the HCV Nucleic Acid Amplificationtest (539324) Rubella IgG Antibody Reactive Nonreactive [facility] Comment on above: Antibody Results Int erpretation of Immune Status Non Reactive Presumed Non-Immune Equivocal Equivocal Reactive Presumed Immune Thyroid Stimulating Hormone (TSH) 1.10 uIU/mL 0.358-3.74 [facility] Vitamin D 25-Hydroxy 33.9 ng/mL [facility] Comment on above: Vitamin D 25(OH) Sta tus Range Deficiency <20 ng/mL (50nmol/L) Insufficiency 20 - 30 ng/mL (50 - 75 nmol/L) Sufficiency 30 - 100 ng/mL (75 - 250 nmol/L) Toxicity >100 ng/mL (>250 nmol/L) Platelets bldOrdered By: Dr. Estrella on 10-11-2022 Platelets (Bld) [#/Vol] 264 10*3/uL 150-450 [facility] Serum Treponema species anti body detectionOrdered By: Dr. Estrella on 10-11-2022 Treponema sp Ab Ql (S) Non-Reactive [facility] Culture, urineOrdered By: Dr Carmen Estrella on 09-25-2022 Bacteria identified Cx Nom (U) Culture exhibits no growth. [facility] Chlamydia trachomatis rRNA d etection by probe and target amplification methodOrdered By: Dr. Estrella on 09-22-2022 C. trachomatis rRNA SUMMER+probe Ql (Unsp spec) Negative Negative [facility] Laboratory - Microbiology an d Antimicrobial susceptibilityOrdered By: Dr. Estrella on 09-22-2022 N. gonorrhoeae DNA SUMMER+probe Ql (Unsp spec) Negative Negative [facility] Comment on above: Performed at: [address] [id number] Director: Kimberly Zee MD, Phone: [phone] Serum or plasma choriogonado tropin detectionOrdered By: Dr. Christine on 08-25-2022 HCG ( test) Ql 972 mIU/mL <4 [facility] Comment on above: hCG levels with Gest ational AgeGestational Age hCG mIU/mL (IU/L)0.2 - 1 week 5 - 501-2 weeks 50 - 5002-3 weeks 100 - 75273-3 weeks 500 - 444348-6 weeks 1000 - 304467-2 weeks 53425 - 100,0006-8 weeks 50547 - 200,0002-3 months 05526 - 100,000 Serum or plasma choriogonado tropin detectionOrdered By: Dr. Christine on 08-23-2022 HCG ( test) Ql 461 mIU/mL <4 [facility] Comment on above: hCG levels with Gest ational AgeGestational Age hCG mIU/mL (IU/L)0.2 - 1 week 5 - 501-2 weeks 50 - 5002-3 weeks 100 - 98314-9 weeks 500 - 951037-8 weeks 1000 - 754905-5 weeks 63834 - 100,0006-8 weeks 19010 - 200,0002-3 months 06515 - 100,000 Basophil percentageon 2021 WBC (Bld) [#/Vol] 8.8 10*3/uL 4.4-11.0 [facility] Work Phone: Blood erythrocytes count (nu mber/volume)on 03-29-2022 RBC (Bld) [#/Vol] 4.31 10*6/uL 4.2-5.4 [facility] Work Phone: Blood hemoglobin measurement (mass/volume)on 03-29-2022 Hemoglobin (Bld) [Mass/Vol] 12.9 g/dL 12.0-15.0 [facility] Work Phone: Blood platelet mean volumeon 03-29-2022 Platelet mean volume (Bld) [Entitic vol] 9.7 fL 6.2-12.0 [facility] Work Phone: Determination of erythrocyte mean corpuscular volume (MCV)on 03-29-2022 MCV (RBC) [Entitic vol] 87.5 fL 81-99 [facility] Work Phone: Hematocrit Auto (Bld) [Volum e fraction]on 03-29-2022 Hematocrit (Bld) [Volume fraction] 37.7 % 37-47 [facility] Work Phone: Laboratory - Hematology and Cell countson 03-29-2022 Erythrocyte distribution width (RBC) [Entitic vol] 37.9 fL 35.1-43.9 [facility] Work Phone: Erythrocyte distribution width (RBC) [Ratio] 11.8 % 11.6-14.6 [facility] Work Phone: MCH (RBC) [Entitic mass] 29.9 pg 27.0-32.0 [facility] Work Phone: MCHC Auto (RBC) [Mass/Vol]on 03-29-2022 MCHC (RBC) [Mass/Vol] 34.2 g/dL 32-36 [facility] Work Phone: Platelets bldon 03-29-2022 Platelets (Bld) [#/Vol] 273 10*3/uL 150-450 [facility] Work Phone: Serum or plasma choriogonado tropin detectionon 03-19-2022 HCG ( test) [place]l 15075 mIU/mL <4 [facility] Work Phone: Comment on above: hCG levels with Gest ational AgeGestational Age hCG mIU/mL (IU/L)0.2 - 1 week 5 - 501-2 weeks 50 - 5002-3 weeks 100 - 68254-8 weeks 500 - 094139-3 weeks 1000 - 084419-5 weeks 10759 - 100,0006-8 weeks 23508 - 200,0002-3 months 50770 - 100,000 Chlamydia trachomatis rRNA d etection by probe and target amplification methodon 03-17-2022 C. trachomatis rRNA SUMMER+probe Ql (Unsp spec) Negative Negative [facility] Work Phone: Laboratory - Drug toxicology on 03-17-2022 Amphetamines Ql (U) Negative <1000 ng/mL [facility] Work Phone: Benzodiazepines Ql (U) Negative < 200 ng/mL [facility] Work Phone: Cannabinoids Screen Ql (U) Negative < 50 ng/mL [facility] Work Phone: Cocaine Ql (U) Negative < 300 ng/mL [facility] Work Phone: Opiates Ql (U) Negative < 300 ng/mL [facility] Work Phone: Laboratory - Microbiology an d Antimicrobial susceptibilityon 03-17-2022 N. gonorrhoeae DNA SUMMER+probe Ql (Unsp spec) Negative Negative [facility] Work Phone: Comment on above: Performed at: =[address] [facility] [place] [id number] Director: Kimberly Zee MD, Phone: [phone] No Panel Informationon 03-17 MDMA (Ecstasy) Screen Negative < 500 ng/mL [facility] Work Phone: Urine Barbiturates Screen Negative < 200 ng/mL [facility] Work Phone: Urine Drug Screen Comment [facility] Work Phone: Comment on above: CONFIRMATORY TESTING FOR ALL POSITIVE URINE DRUG SCREENRESULTS WILL ONLY BE SENT OUT UPON PHYSICIAN ORDER. VISTA Urine Drug Screen methods provide only preliminaryanalytical test results. A more specific alternate chemicalmethod must be used in order to obtain a confirmedanalytical result. Gas chromatography/mass spectrometery(GC/MS) is the preferred confirmatory method. Clinicalconsideration and professional judgement should be appliedto any drug of abuse test result, particularly whenpreliminary positive results are used. URINE TCA TESTING MUST BE ORDERED SEPARATELY. USE TESTMNEMONIC: [facility] Urine Methadone Screen Negative < 300 ng/mL [facility] Work Phone: Serum or plasma choriogonado tropin detectionon 03-17-2022 HCG ( test) [place]l 81076 mIU/mL <4 [facility] Work Phone: Comment on above: hCG levels with Gest ational AgeGestational Age hCG mIU/mL (IU/L)0.2 - 1 week 5 - 501-2 weeks 50 - 5002-3 weeks 100 - 35439-8 weeks 500 - 349900-8 weeks 1000 - 699404-3 weeks 10028 - 100,0006-8 weeks 10139 - 200,0002-3 months 34874 - 100,000 Urine phencyclidine (PCP) de tectionon 03-17-2022 Phencyclidine Ql (U) Negative < 25 ng/mL [facility] Work Phone: Culture, urine Bacteria identified Cx Nom (U) Positive [facility] Work Phone: Vital Signs Date Time Vital Sign Value Performing Clinician Faci lity 05-03-2023 08:53-0400 Body temperature 97.2 [degF] Dr. Catalina Cox Work Phone: [facility] 05-03-2023 08:53-0400 Diastolic blood pressure 69 mm[Hg] Dr. Catalina Cox Work Phone: [facility] 05-03-2023 08:53-0400 Heart rate 81 /min Dr. Catalina Cox Work Phone: [facility] 05-03-2023 08:53-0400 Respiratory rate 16 /min Dr. Catalina Cox Work Phone: [facility] 05-03-2023 08:53-0400 Systolic blood pressure 125 mm[Hg] Dr. Catalina Cox Work Phone: [facility] 05-02-2023 16:50-0400 SaO2% (BldA) [Mass fraction] 96 % Dr. Catalina Cox Work Phone: [facility] 05-01-2023 10:18-0400 Body height 160.[address] Catalina Cox Work Phone: [facility] 05-01-2023 10:18-0400 Body mass index (BMI) [Ratio] 31.7 kg/m2 Dr. Catalina Cox Work Phone: [facility] 05-01-2023 10:18-0400 Body weight 81.[address] Catalina Cox Work Phone: [facility] 04-24-2023 14:29-0400 Body height 160.[address] Catalina Cox Work Phone: [facility] 04-24-2023 14:29-0400 Body mass index (BMI) [Ratio] 31.6 kg/m2 Dr. Catalina Cox Work Phone: [facility] 04-24-2023 14:29-0400 Body weight 81.[address] Catalina Cox Work Phone: [facility] 04-24-2023 14:29-0400 Diastolic blood pressure 82 mm[Hg] Dr. Catalina Cox Work Phone: [facility] 04-24-2023 14:29-0400 Systolic blood pressure 120 mm[Hg] Dr. Catalina Cox Work Phone: [facility] 04-20-2023 16:21-0400 Body mass index (BMI) [Ratio] 31.2 kg/m2 Dr. Catalina Cox Work Phone: [facility] 04-20-2023 16:21-0400 Body weight 80.[address] Catalina Cox Work Phone: [facility] 04-20-2023 16:21-0400 Diastolic blood pressure 77 mm[Hg] Dr. Catalina Cox Work Phone: [facility] 04-20-2023 16:21-0400 Systolic blood pressure 125 mm[Hg] Dr. Catalina Cox Work Phone: [phone] [place] [address] 04-10-2023 15:55-0400 Body mass index (BMI) [Ratio] 31.1 kg/m2 Dr. Catalina Cox Work Phone: [facility] 04-10-2023 15:55-0400 Body weight 79.[address] Catalina Cox Work Phone: [facility] 04-10-2023 15:55-0400 Diastolic blood pressure 78 mm[Hg] Dr. Catalina Cox Work Phone: [facility] 04-10-2023 15:55-0400 Systolic blood pressure 120 mm[Hg] Dr. Catalina Cox Work Phone: [facility] 04-06-2023 15:44-0400 Body mass index (BMI) [Ratio] 31.2 kg/m2 Dr. Catalina Cox Work Phone: [facility] 04-06-2023 15:44-0400 Body weight 79.[address] Catalina Cox Work Phone: [facility] 04-06-2023 15:44-0400 Diastolic blood pressure 82 mm[Hg] Dr. Catalina Cox Work Phone: [facility] 04-06-2023 15:44-0400 Systolic blood pressure 124 mm[Hg] Dr. Catalina Cox Work Phone: [facility] 03-23-2023 15:52-0400 Body mass index (BMI) [Ratio] 30.3 kg/m2 Dr. Catalina Cox Work Phone: [facility] 03-23-2023 15:52-0400 Body weight 77.[address] Catalina Cox Work Phone: [facility] 03-23-2023 15:52-0400 Diastolic blood pressure 74 mm[Hg] Dr. Catalina Cox Work Phone: [facility] 03-23-2023 15:52-0400 Systolic blood pressure 113 mm[Hg] Dr. Catalina Cox Work Phone: [facility] 03-08-2023 15:36-0400 Body mass index (BMI) [Ratio] 29.9 kg/m2 Dr. Catalina Cox Work Phone: [facility] 03-08-2023 15:36-0400 Body weight 76.[address] Catalina Cox Work Phone: [facility] 03-08-2023 15:36-0400 Diastolic blood pressure 71 mm[Hg] Dr. Catalina Cox Work Phone: [facility] 03-08-2023 15:36-0400 Systolic blood pressure 106 mm[Hg] Dr. Catalina Cox Work Phone: [facility] 03-06-2023 18:42-0400 Body height 160.[address] Catalina Cox Work Phone: [facility] 03-06-2023 18:42-0400 Body mass index (BMI) [Ratio] 29.5 kg/m2 Dr. Catalina Cox Work Phone: [facility] 03-06-2023 18:42-0400 Body weight 75.[address] Catalina Cox Work Phone: [facility] 02-20-2023 08:41-0400 Body height 160.[address] Catalina Cox Work Phone: [facility] 02-20-2023 08:41-0400 Body mass index (BMI) [Ratio] 29 kg/m2 Dr. Catalina Cox Work Phone: [facility] 02-20-2023 08:41-0400 Body weight 74.[address] Catalina Cox Work Phone: [facility] 02-20-2023 08:41-0400 Diastolic blood pressure 66 mm[Hg] Dr. Catalina Cox Work Phone: [facility] 02-20-2023 08:41-0400 Systolic blood pressure 100 mm[Hg] Dr. Catalina Cox Work Phone: [facility] 01-30-2023 08:32-0400 Body height 160.[address] Catalina Cox Work Phone: [facility] 01-30-2023 08:32-0400 Body mass index (BMI) [Ratio] 28 kg/m2 Dr. Catalina Cox Work Phone: [facility] 01-30-2023 08:32-0400 Body weight 71.[address] Catalina Cox Work Phone: [facility] 01-30-2023 08:32-0400 Diastolic blood pressure 72 mm[Hg] Dr. Catalina Cox Work Phone: [facility] 01-30-2023 08:32-0400 Systolic blood pressure 104 mm[Hg] Dr. Catalina Cox Work Phone: [facility] 01-06-2023 11:34-0400 Body mass index (BMI) [Ratio] 26.9 kg/m2 Dr. Catalina Cox Work Phone: [facility] 01-06-2023 11:34-0400 Body weight 69.[address] Catalina Cox Work Phone: [facility] 01-06-2023 11:34-0400 Diastolic blood pressure 62 mm[Hg] Dr. Catalina Cox Work Phone: [facility] 01-06-2023 11:34-0400 Systolic blood pressure 108 mm[Hg] Dr. Catalina Cox Work Phone: [facility] 12-07-2022 15:44-0400 Body mass index (BMI) [Ratio] 25.7 kg/m2 Dr. Catalina Cox Work Phone: [facility] 12-07-2022 15:44-0400 Body weight 65.[address] Catalina Cox Work Phone: [facility] 12-07-2022 15:44-0400 Diastolic blood pressure 72 mm[Hg] Dr. Catalina Cox Work Phone: [facility] 12-07-2022 15:44-0400 Systolic blood pressure 112 mm[Hg] Dr. Catalina Cox Work Phone: [facility] 11-09-2022 15:36-0400 Body height 160.[address] Catalina Cox Work Phone: [facility] 11-09-2022 15:36-0400 Body mass index (BMI) [Ratio] 25.5 kg/m2 Dr. Catalina Cox Work Phone: [facility] 11-09-2022 15:36-0400 Body weight 65.[address] Catalina Cox Work Phone: [facility] 11-09-2022 15:36-0400 Diastolic blood pressure 70 mm[Hg] Dr. Catalina Cox Work Phone: [facility] 11-09-2022 15:36-0400 Systolic blood pressure 120 mm[Hg] Dr. Catalina Cox Work Phone: [facility] 10-11-2022 09:32-0400 Body height 160.[address] Catalina Cox Work Phone: [facility] 10-11-2022 09:31-0400 Body mass index (BMI) [Ratio] 25 kg/m2 Dr. Catalina Cox Work Phone: [facility] 10-11-2022 09:31-0400 Body weight 64.[address] Catalina Cox Work Phone: [facility] 10-11-2022 09:31-0400 Diastolic blood pressure 70 mm[Hg] Dr. Catalina Cox Work Phone: [facility] 10-11-2022 09:31-0400 Systolic blood pressure 123 mm[Hg] Dr. Catalina Cox Work Phone: [facility] 09-22-2022 15:04-0400 Body height 160.[address] Catalina Cox Work Phone: [facility] 09-22-2022 15:03-0400 Body mass index (BMI) [Ratio] 24.8 kg/m2 Dr. Catalina Cox Work Phone: [facility] 09-22-2022 15:03-0400 Body weight 63.[address] Catalina Cox Work Phone: [facility] 09-22-2022 15:03-0400 Diastolic blood pressure 81 mm[Hg] Dr. Catalina Cox Work Phone: [facility] 09-22-2022 15:03-0400 Systolic blood pressure 123 mm[Hg] Dr. Catalina Cox Work Phone: [facility] 03-29-2022 15:09-0400 Body temperature 97.4 [degF] Dr. Catalina Cox Work Phone: [facility] Work Phone: 03-29-2022 15:09-0400 Diastolic blood pressure 66 mm[Hg] Dr. Catalina Cox Work Phone: [facility] Work Phone: 03-29-2022 15:09-0400 Heart rate 62 /min Dr. Catalina Cox Work Phone: [facility] Work Phone: 03-29-2022 15:09-0400 Respiratory rate 14 /min Dr. Catalina Cox Work Phone: [facility] Work Phone: 03-29-2022 15:09-0400 SaO2% (BldA) [Mass fraction] 100 % Dr. Catalina Cox Work Phone: [facility] Work Phone: 03-29-2022 15:09-0400 Systolic blood pressure 99 mm[Hg] Dr. Catalina Cox Work Phone: [facility] Work Phone: 03-29-2022 13:19-0400 Body height 160.[address] Catalina Cox Work Phone: [facility] Work Phone: 03-29-2022 13:19-0400 Body mass index (BMI) [Ratio] 24 kg/m2 Dr. Catalina Cox Work Phone: [facility] Work Phone: 03-29-2022 13:19-0400 Body weight 61.[address] Catalina Cox Work Phone: [facility] Work Phone: 03-17-2022 14:42-0400 Body height 160.[address] Catalina Cox Work Phone: [facility] Work Phone: 03-17-2022 14:42-0400 Body mass index (BMI) [Ratio] 24.8 kg/m2 Dr. Catalina Cox Work Phone: [facility] Work Phone: 03-17-2022 14:42-0400 Body weight 63.[address] Catalina Cox Work Phone: [facility] Work Phone: 03-17-2022 14:42-0400 Diastolic blood pressure 89 mm[Hg] Dr. Catalina Cox Work Phone: [facility] Work Phone: 03-17-2022 14:42-0400 Systolic blood pressure 133 mm[Hg] Dr. Catalina Cox Work Phone: [facility] Work Phone: Encounters Encounter Date Encounter Type Care Provider Facility Start: 05-08-2025 End: 05-08-[facility] Start: 05-02-2025 End: 05-02-2025 ambulatory Leonarda Christine Facility:[facility] Start: 04-30-2025 End: 04-30-2025 [facility] Start: 12-26-2024 End: 12-26-[address] Catalina Cox DO Work Phone: [facility] Work Phone: Start: 12-26-2024 End: 12-26-[address] Catalina Cox DO -Laboratory [facility] Start: 12-26-2024 End: 12-26-2024 ambulatory Catalina Cox Facility:[facility] Start: 07-05-2024 End: 07-05-2024 ambulatory Catalina Cox Facility:[facility] Start: 07-05-2024 End: 07-05-2024 ambulatory Catalina Cox Facility:[facility] Start: 05-03-2023 Non-patient / Non-visit Dr. Catalina Cox Work Phone: [facility] Start: 05-02-2023 Non-patient / Non-visit Dr. Catalina Cox Work Phone: [facility] Start: 05-01-2023 Non-patient / Non-visit Dr. Catalina Cox Work Phone: [facility] Start: 05-01-2023 End: 05-03-2023 Evaluation and management of inpatient [facility] Work [facility]: Start: 04-24-2023 End: 04-24-[address] Catalina Cox Work Phone: [facility] Work Phone: Start: 04-24-2023 End: 04-24-[address] Catalina Cox Work Phone: [facility] Work Phone: Start: 04-20-2023 End: 04-20-[address] Catalina Cox Work Phone: [facility] Work Phone: Start: 04-10-2023 End: 04-10-[address] Catalina Cox Work Phone: [facility] Work Phone: Start: 04-06-2023 End: 04-06-[address] Catalina Cox Work Phone: [facility]Labor[facility], Specimen Work Phone: Start: 04-06-2023 End: 04-06-2023 ambulatory CATALINA COX [facility] Start: 04-06-2023 End: 04-06-[address] Catalina Cox Work Phone: [facility] Work Phone: Start: 03-23-2023 End: 03-23-[address] Catalina Cox Work Phone: [facility] Work Phone: Start: 03-08-2023 Non-patient / Non-visit Dr. Catalina Cox Work Phone: [facility] Start: 03-08-2023 End: 03-08-[address] Catalina Cox Work Phone: [facility] Work Phone: Start: 03-06-2023 End: 03-06-[address] Catalina Cox Work Phone: [facility] Work Phone: Start: 03-06-2023 End: 03-06-[address] Catalina Cox Work Phone: [facility] Work Phone: Start: 03-06-2023 Non-patient / Non-visit Dr. Catalina Cox Work Phone: [facility] Start: 02-27-2023 End: 02-27-[address] Catalina Cox Work Phone: [facility] Work Phone: Start: 02-27-2023 End: 02-27-[address] Catalina Cox Work Phone: [facility] Start: 02-20-2023 End: 02-20-[address] Catalina Cox Work Phone: [facility] Work Phone: Start: 01-30-2023 End: 01-30-[address] Catalina Cox Work Phone: [facility] Work Phone: Start: 01-30-2023 End: 01-30-[address] Catalina Cox Work Phone: [facility] Work Phone: Start: 01-06-2023 End: 01-06-[address] Catalina Cox Work Phone: [facility] Work Phone: Start: 12-13-2022 End: 12-13-2022 [facility] Start: 12-07-2022 End: 12-07-[address] Catalina Cox Work Phone: [facility] Work Phone: Start: 11-25-2022 End: 11-25-[address] Catalina Cox Work Phone: [facility] Work Phone: Start: 11-25-2022 End: 11-25-[address] [facility] Start: 11-09-2022 End: 11-09-[address] Catalina Cox Work Phone: [facility] Start: 10-14-2022 End: 10-14-[address] Catalina Cox Work Phone: [facility] Work Phone: Start: 10-14-2022 End: 10-14-[address] [facility] Start: 10-11-2022 End: 10-11-[address] Catalina Cox Work Phone: [facility] Start: 09-22-2022 End: 09-22-[address] Catalina Cox Work Phone: [facility] Work Phone: Start: 09-22-2022 End: 09-22-[address] Catalina Cox Work Phone: [facility]Labor[facility], Specimen Start: 09-22-2022 End: 09-22-[address] Catalina Cox Work Phone: [facility] Start: 08-31-2022 End: 08-31-2022 ambulatory [facility] Work Phone: Start: 08-31-2022 End: 08-31-2022 Patient encounter procedure [facility] Start: 08-25-2022 End: 08-25-2022 Patient encounter procedure [facility] Start: 08-23-2022 End: 08-23-2022 ambulatory [facility] Work Phone: Start: 08-23-2022 End: 08-23-2022 Patient encounter procedure [facility] Start: 03-29-2022 Non-patient / Non-visit Dr. Catalina Cox Work Phone: [facility] Start: 03-29-2022 End: 03-29-2022 Admission to same day surgery center Dr. Catalina Cox Work Phone: [facility] Start: 03-29-2022 End: 03-29-[address] Catalina Cox Work Phone: [facility] Work Phone: Start: 03-25-2022 End: 03-25-[address] Catalina Cox Work Phone: [facility] Work Phone: Start: 03-25-2022 End: 03-25-[address] Catalina Cox Work Phone: [facility], [facility] Start: 03-19-2022 End: 03-19-[address] Catalina Cox Work Phone: [facility] Work Phone: Start: 03-19-2022 End: 03-19-[address] Catalina Cox Work Phone: [facility] Start: 03-17-2022 End: 03-17-[address] Catalina Cox Work Phone: [facility] Work Phone: Start: 03-17-2022 End: 03-17-[address] Catalina Cox Work Phone: [facility] Procedures Date Procedure Procedure Detail Performing Clinician Start: 05-01-2023 Plain X-ray abdomen Dr. Catalina Cox Work Phone: Start: 04-06-2023 Group B Streptococcu s Culture Dr. Catalina Cox Work Phone: Start: 08-31-2022 Transvaginal obstetr ic ultrasonography Start: 03-29-2022 Dilation and curetta ge of uterus Dr. Catalina Cox Work Phone: Start: 03-25-2022 Ultrasound scan - obstetric Dr. Catalina Cox Work Phone: Urine culture Dr. Catalina Cox Work Phone: Urine culture Dr. Catalina Cox Work Phone: Plan of Treatment Date Care Activity Detail Author Start: 05-03-2023 Patient discharge [facility] Start: 05-02-2023 Application of abdominal corset [facility] Start: 05-01-2023 Administration of medication [facility] Start: 05-01-2023 Ambulation therapy management [facility] Start: 05-01-2023 Application of device [facility] Start: 05-01-2023 Application of inter mittent pneumatic compression device [facility] Start: 05-01-2023 Assessment of risk o f venous thromboembolism [facility] Start: 05-01-2023 Catheterization of vein [facility] Start: 05-01-2023 Deep breathing and c oughing exercises [facility] Start: 05-01-2023 Exercises [facility] Start: 05-01-2023 Incentive spirometry [facility] Start: 05-01-2023 Measuring intake and output [facility] Start: 05-01-2023 Notification of physician [facility] Start: 05-01-2023 Procedure discontinued [facility] Start: 05-01-2023 Provision of activity privileges [facility] Start: 05-01-2023 Vital signs measurements [facility] Start: 05-01-2023 Wound care [facility] Start: 05-01-2023 [facility] Start: 05-01-2023 Application of abdominal corset [facility] Start: 05-01-2023 Admission procedure [facility] Start: 05-01-2023 Consultation [facility] Start: 05-01-2023 [facility] Start: 03-06-2023 Nonstress test [facility] Start: 03-06-2023 Obstetric monitoring [facility] Start: 03-06-2023 Vital signs measurements [facility] Start: 03-06-2023 [facility] Start: 03-06-2023 Patient discharge [facility] Start: 03-29-2022 Ambulation without limitation [facility] Work Phone: Start: 03-29-2022 Medical regimen orders management [facility] Work Phone: Start: 03-29-2022 Medication education [facility] Work Phone: Start: 03-29-2022 Patient discharge [facility] Work Phone: Start: 03-29-2022 Procedure discontinued [facility] Work Phone: Start: 03-29-2022 Taking patient vital signs [facility] Work Phone: Start: 03-29-2022 Vital signs measurements [facility] Work Phone: Start: 03-29-2022 [facility] Work Phone: Start: 03-17-2022 Chlamydia deoxyribon ucleic acid detection [facility] Work Phone: CBC W Auto Different ial panel - Blood [facility] Hepatitis B surface antigen measurement [facility] Hepatitis C antibody measurement [facility] HIV 1+2 Ab+HIV1 p24 Ag [Presence] in Serum or Plasma by Immunoassay [facility] Neisseria gonorrhoea e rRNA [Presence] in Unspecified specimen by SUMMER with probe detection [facility] Work Phone: Patient Education [facility] Work Phone: Patient referral [facility] Work Phone: PCR test for Chlamydia trachomatis [facility] Work Phone: Rubella IgG measurement [facility] Thyroid stimulating hormone measurement [facility] Treponema sp Ab [Pre sence] in Serum [facility] Immunizations Immunization Date Immunization Notes Care Provider Dane snyder 02-20-2023 tetanus toxoid, redu emmanuelle diphtheria toxoid, and acellular pertussis vaccine, adsorbed Dr. Catalina Cox Work Phone: [facility] Payers Date Payer Category Payer Unknown [id number] 2024 Self-pay [id number] 2024 Private Health Insurance [id number] 2000 Unknown [id number] 2.16. [id number] 2000 Unknown [id number] 2.16. [id number] Unknown [id number] 2.16.8 [id number] Unknown [id number] 2.16.8 [id number] Unknown [id number] 2.16.8 [id number] Unknown [id number] 2.16.8 [id number] Unknown [id number] 2.16.8 [id number] Unknown [id number] 2.16.8 [id number] Social History Date Type Detail Facility Start: 03-17-2022 End: 05-01-2023 Tobacco smoking status MAIS Unknown if ever smoked [facility] Start: 2000 Sex Assigned At Female W [facility] Start: 06-12-2023 Tobacco smoking stat us MAIS Never smoked tobacco (finding) [facility] Goals Date Patient Goal Desired Activity /State Mental Status Date Assessment Result Facility 05-03-2023 Cognitive function Level Of Cons ciousness Awake;Alert;Appropriate;Follow s Commands [facility] Work Phone: 03-29-2022 Cognitive function Voice/Name [facility] Work Phone: Clinical Notes 05-01-2023 to 05-03-2023 Note Date & Type Note Facility 05-03-2023 Progress note Note Date/Time May 03, 2023 8:01am [facility] Medical Records Department [address] [place] [address] Progress Note - OBGYN 05/03/23 0759 MR#: [id number] Acct: [id number] Name: ELAN AVNG Rep #:[id number] : 2000 22 From: Honey León NP PRODUCT MARKETING SPECIALIST-C PCP: Dr. Catalina Cox, DO Status:ADM IN Location: VB053-4 Subjective Subjective Patient doing well without complaints. Tolerating PO. Ambulating and voiding without difficulty. Feeding well. Denies chest pain, shortness of breath, calf pain/swelling, fevers, chills, lightheadedness. Objective Data Objective Data Vital Signs: Vital Signs Temp Pulse Resp BP Pulse Ox O2 Del Method 97 F L 87 18 115/48 L 96 Room Air 05/03/23 02:43 05/02/23 20:30 05/03/23 02:43 05/03/23 02:43 05/02/23 16:50 05/03/23 02:43 Oxygen Delivery Method Room Air Weight: 179 lb 0.246 oz Body Mass Index (BMI) 31.7 Intake & Output: Intake and Output for Last 24 Hours 05/01/23 05/02/23 05/03/23 23:59 23:59 23:59 Intake Total 680 / 680 1500 / 1500 Output Total 1550 / 1550 1850 / 1850 Balance -870 / -870 -350 / -350 Lab / Micro Data 05/02/23 05:15 Physical Exam Const alert and oriented x3 HEENT normocephalic Eyes PERRL Neck full ROM Resp normal respiratory effort GI soft to palpation GI Narrative: FF below U. Dressing dry and intact Palpation: tender other (appropriately) Assessment & Plan (1) delivery delivered: COMMENT: 05/01/23 PLTCS Girl Hanson(sp) JV distress PLAN: Plan s/p LTCS PPD # 2 1. routine post care 2. breast feeding- support given 3. rh positive 4. rubella immune 5. home today 05/03/23 0801 <Electronically signed by Honey León NP PRODUCT MARKETING SPECIALIST-C> Cosigner Signature (if applicable): CC: ~ Signed [facility] Work Phone: 1(883) 887-765510-24-2023 Progress note Author Celestina Elliott [facility] May 02, 2023 12:57pm Note Date/Time May 02, 2023 1 2:57pm [facility] Medical Records Department [address] [place] [address] Progress Note - OBGYN 05/02/23 1256 MR#: [id number] Acct: [id number] Name: ELAN VANG Rep #:[id number] : 2000 22 From: Celestina Elliott CNM PCP: Dr. Catalina Cox, DO Status:ADM IN Location: LC004-5 Subjective Subjective Patient doing well without complaints. Tolerating PO. Ambulating and voiding without difficulty. Feeding well. Denies chest pain, shortness of breath, calf pain/swelling, fevers, chills, lightheadedness. Objective Data Objective Data Vital Signs: Vital Signs Temp Pulse Resp BP Pulse Ox O2 Del Method 98 F 94 16 121/77 H 97 Room Air 05/02/23 12:06 05/02/23 12:06 05/02/23 12:06 05/02/23 12:06 05/02/23 12:06 05/02/23 12:06 Oxygen Delivery Method Room Air Weight: 179 lb 0.246 oz Body Mass Index (BMI) 31.7 Intake & Output: Intake and Output for Last 24 Hours 04/30/23 05/01/23 05/02/23 23:59 23:59 23:59 Intake Total 680 / 680 1500 / 1500 Output Total 1550 / 1550 1850 / 1850 Balance -870 / -870 -350 / -350 Lab / Micro Data 05/02/23 05:15 Labs: Laboratory Results - last 24 hr 05/02/23 05:15: WBC 17.1 H, RBC 2.94 L, Hgb 9.3 L, Hct 27.9 L, MCV 94.9, MCH 31.6, MCHC 33.3, RDW Std Deviation 43.2, RDW Coeff of Karo 12.4, Plt Count 150, MPV 10.8 Radiography Diagnostic Testing: Radiology Impression KUB X-Ray 05/01/23 17:17 IMPRESSION: No evidence for retained surgical instruments within the abdomen or pelvis postsurgically Electronically Signed: Miguel Angel Dodge MD at 18:29 EDT , ROS Constitutional Constitutional: Reports systems reviewed and no addt'l complaints, except as documented; Denies anorexia or headache(s) Cardiovascular Cardiovascular: Reports systems reviewed and no addt'l complaints, except as documented; Denies dizziness, dyspnea, nausea or tachypnea Respiratory/Chest Respiratory/Chest: Reports systems reviewed and no addt'l complaints, except as documented; Denies cough, dyspnea, shortness of breath at rest or tachypnea Gastrointestinal Gastrointestinal: Reports systems reviewed and no addt'l complaints, except as documented; Denies abdominal pain, constipation or nausea Genitourinary Genitourinary: Reports systems reviewed and no addt'l complaints, except as documented; Denies burning urination, difficulty urinating, dysuria, urinary frequency or urinary incontinence Musculoskeletal Musculoskeletal: Reports systems reviewed and no addt'l complaints, except as documented Integumentary Integumentary: Reports systems reviewed and no addt'l complaints, except as documented Neurologic Neurologic: Reports systems reviewed and no addt'l complaints, except as documented; Denies abnormal speech, dizziness or headache(s) Psychiatric Psychiatric: Reports systems reviewed and no addt'l complaints, except as documented Endocrine Endocrinology: Reports systems reviewed and no addt'l complaints, except as documented Hematologic/Lymphatic Hematologic/Lymphatic: Reports systems reviewed and no addt'l complaints, exceptas documented Physical Exam Const alert, oriented x3 and no apparent distress Neck full ROM Resp normal respiratory effort, normal air movement and no retractions Effort and Inspection: able to speak in complete sentences and symmetric chest movement GI soft to palpation Inspection: incision intact Bladder / Kidney Exam: bladder normal to palpation Uterus Palpation: uterus fundus Extremity normal to inspection and full ROM Psych mental status grossly normal, thought process normal and cooperative Assessment & Plan (1) delivery delivered: PLAN: s/p LTCS PPD # 1 1. routine post care 2. breast feeding- support given 3. rh positive 4. rubella immune Charges/Coding Multi Select Codes Urinary/Genital Urinary/Genital CPT Codes: No Charge 05/02/23 1257 <Electronically signed by Celestina Elliott CNM> Cosigner Signature (if applicable): CC: ~ Signed [facility] Work Phone: 1(698) 410-302210-23-2023 Discharge summary Author Merle Estrella [facility] May 01, 2023 6:00pm Note Date/Time May 01, 2023 5 :59pm [facility] Medical Records Department [address] [place] [id number] Instructions for Home/Discharge Instructions 05/01/23 0699 MR#: [id number] Acct: [id number] Name: ELAN VANG Rep #:[id number] : 2000 22 From: Merle Decker DO PCP: Dr. Catalina Cox DO Status:ADM IN Discharge Instructions Diet Discharge Diet: No restrictions Activity Discharge Activity: May Not Drive (for 2 weeks or while taking narcotic pain medications.), May Shower and May Take a Tub Bath (in 7 days.) May resume sexual activity in: 4-6 weeks Weight Bearing Status: Full weight bearing Lifting Restrictions: 20 pounds Dressing / Incision Call your doctor if your incision/area has: Continuous Slow Oozing, Sudden Increased Bleeding, Increased Pain/ Swelling, Increased Redness and Foul Smelling Discharge Call your doctor if you observe: Fever of 101 or Higher and Using more than 1 pad per hour Suture Line Care: Avoid Pulling/Pushing and Avoid Pinching/Bending Cleanse incision/area with: Soap & Water and Keep Dressing Clean & Dry Follow Up Care Please Follow Up With: Merle Decker DO When: Call [phone] to make an appointment for an incision check in 1-2 weeks. Test Results: Test results from this visit will be discussed in further detail at your follow- up appointment, if applicable. Discharge Plan Admission Admit Date/Time: 05/01/23 11:05 Primary Reason for Your Visit: section Attending Provider: Merle Decker Primary Care Provider: Catalina Cox Discharge Orders/Prescriptions Prescriptions: New naproxen 500 mg tablet 500 mg PO BID PRN (Reason: pain) Qty: 30 0RF Continued fluoxetine 10 mg capsule 10 mg PO DAILY DHA 200 mg capsule PO Referrals / Follow Up: Catalina Cox DO [Primary Care Provider] - Disposition Disposition (needs filled in before D/C Order can be placed): Home, Self Care 05/01/23 1800<Electronically signed by Merle Decker DO>Merle Decker DO CC: Dr. 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 Catalina Cox, DO Status:ADM IN Location: TI238-9 HPI - General General Date of Admission: 05/01/23 Chief Complaint: contractions. HPI Narrative ELAN VANG, is a 22 F who presents at 40.2 with contractions with nausea starting this morning. denies lof however has had increased vaginal discharge. good fm, denies vaginal bleeding. prolonged deceleration noted on monitor at 1055 to 90s x 6-7 minutes. Maternal Data Information JUANPABLO Calculator Estimated Delivery Date Method Current WG Current Estimate 04/29/23 LMP (Certain) 40w 2d Other Estimates 04/25/23 Ultrasound #1 40w 6d PFSH PFSH Medical History (Updated 05/01/23 @ 13:32 by Deepthi Franco CNM) Alcohol use Anxiety Depression History of IBS History of spontaneous Non-smoker Placental abnormality Wears contact lenses Home Medications docosahexaenoic acid 200 mg capsule ( DHA) mg PO 09/13/22 [History Last Taken 05/01/23 06:00 200 mg] fluoxetine 10 mg capsule 10 mg PO DAILY 09/13/22 [History Last Taken 05/01/23 06:00 10 mg] Allergy/AdvReac Type Severity Reaction Status Date / Time azithromycin AdvReac Severe Vomiting Verified 05/01/23 10:20 Surgical History History of D&C Hx of wisdom tooth extraction Social History adopted: No household members: spouse housing: house current occupational status: employed current occupation: [employer] current occupational exposures/hazards: No pets and animals: Yes pets and animals: dog(s) history of recent travel: No ([place] & [place]) sexually active: Yes Smoking Status: Never smoker Electronic Cigarette Use: not used alcohol intake: former details: social prior to substance use type: does not use well-balanced diet: daily or most days caffeine: Yes (occasionally) Type: coffee Number of servings: 1 eating out: 1-3 times/week during the past year weight has: remained stable what type of physical activity do you participate in: walking frequency: 3-4 times per week duration: 15-30 minutes/day chelsi/jewish: Gnosticist seatbelt use: always do you feel safe at home: Yes additional social history: - [employer] History 2 Elective abortions Hx Para 0 Spontaneous abortions 1 Hx # Term Pregnancies Ectopic pregnancies Hx # Pregnancies Multiple births # of living children 0 Past Pregnancies Del. Date Name GA/Weeks Outcome Route Bth Weight Infant Gen Labor Lgth Anesthesia Del Locatpedro Provider FOB 03/29/22 spontaneous Visit Details Expected Delivery Route/Plan Labor Preferences- CB/BF classes: discussed labor support person: Jeremy labor intervention preferences: [] pain management options preferred: epidural cut cord/dad catch: cord : yes PP control planned: discussed discussed possible routes of delivery and associated risks: [] special requests: [] Plans Covid status: unvaccinated Flu vaccine: no Tdap vaccine: given Rhogam: NA LARC form signed: yes Problem list reviewed and updated with the most current plan of care details and appropriate orders placed. Relevant counseling for the gestational age provided. Continue routine care and follow up unless otherwise noted in visit notes/problem list details OB Flowsheet Initial Weight: 140 lb Date -?-?-?-?-?-?-?-?-?-?-?-?- EGA Weight BP Urine Prot -?-?-?-?-?-?-?-?-?-?-?-?- Glucose FHR FuHt Pres Dilation -?-?-?-?-?-?-?-?-?-?-?-?- Effaced St Visit Note 09/22/22 -?-?-?-?-?-?-?-?-?-?-?-?- 8w 5d 140 lb 2 oz (+2 oz) 123/81 -?-?-?-?-?-?-?-?-?-?-?-?- 185 -?-?-?-?-?-?-?-?-?-?-?-?- JV- single live IUP measuring 9 weeks 2 days and consistent with LMP. deciding on NIPT. return in 2 weeks for heart tones due to h/o miscarriage. 10/11/22 -?-?-?-?-?-?-?-?-?-?-?-?- 11w 3d 141 lb 8 oz (+1 lb 8 oz) 123/70 Negative -?-?-?-?-?-?-?-?-?-?-?-?- Negative 157 -?-?-?-?-?-?-?-?-?-?-?-?- MH-No VB. Brief US to confirm fht. Labs today. Still considering NIPT 11/09/22 -?-?-?-?-?-?-?-?-?-?-?-?- 15w 4d 144 lb 2 oz (+4 lb 2 oz) 120/70 Negative -?--?-?-?-?-?-?-?-?-?-?-?- Negative 155 -?-?-?-?-?-?-?-?-?-?-?-?- LC- no vb/crampi ng. normal labs, low risk nipt. discussed and declines afp. 12/07/22 -?-?-?-?-?-?-?-?-?-?-?-?- 19w 4d 145 lb 4 oz (+5 lb 4 oz) 112/72 Trace -?-?-?-?-?-?-?-?-?-?-?-?- Negative 154 -?-?-?-?-?-?-?-?-?-?-?-?- MH-NO VB. No mov ement yet. MFM US /6 01/06/23 -?-?-?-?-?-?-?-?-?-?-?-?- 23w 6d 152 lb 6 oz (+12 lb 6 oz) 108/62 Negative -?-?-?-?-?-?-?-?-?-?-?-?- Negative 153 24 -?-?-?-?-?-?-?-?-?-?-?-?- KW- +fm, no lof/ vb/ctx. discussed placental lobes, and 28 week labs. 01/30/23 -?-?-?-?-?-?-?-?-?-?-?-?- 27w 2d 158 lb 4 oz (+18 lb 4 oz) 104/72 Negative -?-?-?-?-?-?-?-?-?-?-?-?- Negative 145 28 -?--?-?-?-?-?-?-?-?-?-?-?- MH-No VB, LOF. G ood FM. 28 wk labs, [facility]. 02/20/23 -?-?-?-?-?-?-?-?-?-?-?-?- 30w 2d 164 lb 2 oz (+24 lb 2 oz) 100/66 Negative -?-?-?-?-?-?-?-?-?-?-?-?- Negative 145 30 -?-?-?-?-?-?-?-?-?-?-?-?- KW-no vb/lof/ctx . Good FM. repeat CBC next week. 03/08/23 -?-?-?-?-?-?-?-?-?-?-?-?- 32w 4d 169 lb 6 oz (+29 lb 6 oz) 106/71 -?-?-?-?-?-?-?-?-?-?-?-?- 143 32 -?-?-?-?-?-?-?-?-?-?-?-?- MH-No VB, LOF or CTX. Feeling more uncomfortable but r/t normal growth. She has rpt US at 36 wk 03/23/23 -?-?-?-?-?-?-?-?-?-?-?-?- 34w 5d 171 lb 6 oz (+31 lb 6 oz) 113/74 Negative -?-?-?-?-?-?-?-?-?-?-?-?- Negative 140 34 -?-?-?-?-?-?-?-?-?-?-?-?- SM- no vb lof go od fm no reuglar ctx 04/06/23 -?-?-?-?-?-?-?-?-?-?-?-?- 36w 5d 176 lb 5 oz (+36 lb 5 oz) 124/82 -?-?-?-?-?-?-?-?-?-?-?-?- 140 36 Cephalic 0.5 -?-?-?-?-?-?-?-?-?-?-?-?- -1 SM- no v b lof good fm no regular ctx gbs collected 04/10/23 -?-?-?-?-?-?-?-?-?-?-?-?- 37w 2d 176 lb (+36 lb) 120/78 Negative -?-?-?-?-?-?-?-?-?-?-?-?- Negative 130 36 -?-?-?-?-?-?-?-?-?-?-?-?- LC- no vb/lof/ct x. good fm. gbs negative. 04/20/23 -?-?-?-?-?-?-?-?-?-?-?-?- 38w 5d 176 lb 8 oz (+36 lb 8 oz) 125/77 Negative -?-?-?-?-?-?-?-?-?-?-?-?- Negative 120 37 Cephalic 2 -?-?-?-?-?-?-?-?-?-?-?-?- 70 -2 KW-no vb/l of/ctx. good fm. labor precautions 04/24/23 -?-?-?-?-?-?-?-?-?-?-?-?- 39w 2d 179 lb (+39 lb) 120/82 Negative -?-?-?-?-?-?-?-?-?-?-?-?- Negative 135 38 Cephalic 2 -?-?-?-?-?-?-?-?-?-?-?-?- 70 -2 LC- no vb/ ctx. good fm. + ? LOF since 2129. ROM plus collected. NST FHR Rate Baby A Baseline: 140 Variability:: Moderate Accelerations:: 15 x 15 FHR Category:: Category I Uterine Activity:: irregular ROS Cardiovascular Cardiovascular: Denies abdominal pain, chest pain, diaphoresis or dyspnea Respiratory/Chest Respiratory/Chest: Denies change in mental status, chest congestion, chest tightness, cough, shortness of breath at rest, shortness of breath with exertion, breast mass, breast pain, breast skin changes, breast swelling, change in breast shape or nipple discharge Genitourinary Genitourinary: Reports change in urinary stream Musculoskeletal Musculoskeletal: Reports none Integumentary Integumentary: Reports none Neurologic Neurologic: Reports none Psychiatric Psychiatric: Reports none Endocrine Endocrinology: Reports none Hematologic/Lymphatic Hematologic/Lymphatic: Reports none Allergic/Immunologic Allergic/Immunologic: Reports none Vital Signs Vital Signs Vital Signs: 05/01/23 10:12 05/01/23 10:12 05/01/23 11:00 Pulse Rate 80 75 Blood Pressure 110/71 BP Systolic 110 BP Diastolic 71 Pulse Ox 05/01/23 11:00 05/01/23 11:05 05/01/23 11:05 Pulse Rate 87 Blood Pressure BP Systolic BP Diastolic Pulse Ox 99 100 05/01/23 11:15 05/01/23 11:15 05/01/23 11:19 Pulse Rate 91 103 H Blood Pressure BP Systolic BP Diastolic Pulse Ox 100 05/01/23 11:19 05/01/23 11:20 05/01/23 11:20 Pulse Rate 102 H Blood Pressure BP Systolic BP Diastolic Pulse Ox 89 100 05/01/23 11:25 05/01/23 11:25 05/01/23 11:30 Pulse Rate 90 94 Blood Pressure BP Systolic BP Diastolic Pulse Ox 100 05/01/23 11:30 05/01/23 11:35 05/01/23 11:35 Pulse Rate 90 Blood Pressure BP Systolic BP Diastolic Pulse Ox 100 100 05/01/23 11:40 05/01/23 11:40 05/01/23 11:45 Pulse Rate 114 H 114 H Blood Pressure BP Systolic BP Diastolic Pulse Ox 100 05/01/23 11:45 Pulse Rate Blood Pressure BP Systolic BP Diastolic Pulse Ox 100 Weight Weight: 179 lb 0.246 oz Body Mass Index (BMI) 31.7 Physical Exam Const alert, oriented x3 and no apparent distress General Appearance: cooperative, comfortable and well kempt Orientation / Consciousness: awake and oriented to person Exam Limitations: no limitations HEENT normocephalic Neck full ROM Chest inspection of chest normal Resp normal respiratory effort, normal air movement and no retractions Effort and Inspection: able to speak in complete sentences and symmetric chest movement Cardio regular rate Peripheral Pulses: pulses 2+ throughout GI normal to inspection, nondistended, normoactive bowel sounds Inspection: gravid no CVA tenderness and appearance of the vagina normal External Female Exam: normal appearance of the urethra; Negative for external lesion OB / External & Speculum: external exam normal Manual OB Exam: estimated gestational size appropriate and presentation cephalic Uterus Palpation: Negative for uterus tender Extremity normal to inspection Skin no rashes or lesions noted Neuro deep tendon reflexes 2+ bilaterally and gait normal Motor Exam: strength 5/5 throughout and clonus absent Psych Activity / Motor Behavior: appropriate eye contact Speech: normal speech Labs Labs Labs: Blood Type A POSITIVE Antibody Screen NEGATIVE Hct 41.7 % (37-47) Hgb 13.7 g/dL (12.0-15.0) Pap Smear Negative Obstetrics Ultrasound Syphilis Total Ab Non-reactive Rubella IgG Antibody Reactive (Nonreactive) Hep Bs Antigen Non-Reactive (Nonreactive) Hepatitis C Antibody Non-Reactive (Nonreactive) Chlamydia DNA (SUMMER) Negative (Negative) N.gonorrhoeae DNA (SUMMER) Negative (Negative) HIV 1&2 Antibody Non-Reactive (Nonreactive) Glucose 1 Hr 50 gm 123 mg/dL (70-140) Assessment & Plan (1) Prolonged heart deceleration: COMMENT: admit to WP IV fluid bolus AROM, internal FSE (2) Spontaneous onset of labor: COMMENT: GBs negative. plans epidural (3) Placenta succenturiata: QUALIFIERS: Trimester: second trimester Qualified Code(s): O43.192 - Other malformation of placenta, second trimester COMMENT: succenturiate lobe seen on anatomy scan. Growth US Q4w:10/2 30% and rpt 4 wk (4) Supervision of high risk , antepartum: COMMENT: PRR JUANPABLO 04/29/23 Girl Donald (5) : QUALIFIERS: Weeks of gestation: 38 weeks Qualified Code(s): Z3A.38 - 38 weeks gestation of COMMENT: GBS neg, NIPT LR and carrier declined, nl anatomy PLAN: Plan updated on admission, deceleration and personally examined pt and provided bedside ultrasound. will co-manage patient for decelerations. currently cat 1 tracing. 05/01/23 6664 <Electronically signed by Deepthi Franco CNM> Cosigner Signature (if applicable): CC: BETY Franco; Dr. Catalina Cox, DO~ Signed [facility] Work Phone: [employer] note* Diagnosis Onset Date Resolution Status Depression acute acute Seasonal allergies acute Supervision of high risk , antepartum acute Threatened acute [facility] Work Phone: evaluation note* Diagnosis Onset Date Resolution Status Depression resolved resolved Seasonal allergies resolved Supervision of high risk , antepartum resolved Threatened resolved Incomplete acute [facility] Work Phone: evaluation noteNo assessment information available [facility] Work Phone: evaluation note* Diagnosis Onset Date Resolution Status Depression affecting acute History of miscarriage, currently acute acute Supervision of high risk , antepartum acute [facility] Work Phone: evaluation note* Diagnosis Onset Date Resolution Status Depression affecting acute History of miscarriage, currently acute acute Supervision of high risk , antepartum acute Depression affecting acute History of miscarriage, currently acute acute Supervision of high risk , antepartum acute [facility] Work Phone: evaluation note* Diagnosis Onset Date Resolution Status Depression affecting acute History of miscarriage, currently acute acute Supervision of high risk , antepartum acute Depression affecting acute History of miscarriage, currently acute acute Supervision of high risk , antepartum acute Depression affecting acute History of miscarriage, currently acute acute Supervision of high risk , antepartum acute [facility] Work Phone: evaluation note* Diagnosis Onset Date Resolution Status Depression affecting acute History of miscarriage, currently acute acute Supervision of high risk , antepartum acute Depression affecting acute History of miscarriage, currently acute acute Supervision of high risk , antepartum acute Depression affecting acute History of miscarriage, currently acute acute Supervision of high risk , antepartum acute Depression affecting acute History of miscarriage, currently acute Placenta succenturiata acute acute Supervision of high risk , antepartum acute Depression affecting acute History of miscarriage, currently acute Placenta succenturiata acute acute Supervision of high risk , antepartum acute [facility] Work Phone: Evaluation note* Diagnosis Onset Date Resolution Status Depression affecting acute History of miscarriage, currently acute acute Supervision of high risk , antepartum acute Depression affecting acute History of miscarriage, currently acute acute Supervision of high risk , antepartum acute Depression affecting acute History of miscarriage, currently acute Placenta succenturiata acute acute Supervision of high risk , antepartum acute Depression affecting acute History of miscarriage, currently acute Placenta succenturiata acute acute Supervision of high risk , antepartum acute Anemia affecting in second trimester acute Depression affecting acute History of miscarriage, currently acute Placenta succenturiata acute acute Supervision of high risk , antepartum acute [facility] Work Phone: Evaluation note* Diagnosis Onset Date Resolution Status Depression affecting acute Placenta succenturiata acute acute Supervision of high risk , antepartum acute History of miscarriage, currently resolved Depression affecting acute Placenta succenturiata acute acute Supervision of high risk , antepartum acute History of miscarriage, currently resolved Anemia affecting in second trimester acute Depression affecting acute Placenta succenturiata acute acute Supervision of high risk , antepartum acute History of miscarriage, currently resolved Leakage, amniotic fluid reso lved Anemia affecting in second trimester acute Depression affecting acute Placenta succenturiata acute acute Supervision of high risk , antepartum acute History of miscarriage, currently resolved Anemia affecting in second trimester acute Depression affecting acute Placenta succenturiata acute acute Supervision of high risk , antepartum acute Anemia affecting in second trimester acute Depression affecting acute Placenta succenturiata acute acute Supervision of high risk , antepartum acute Anemia affecting in second trimester acute Depression affecting acute Placenta succenturiata acute acute Supervision of high risk , antepartum acute Anemia affecting in second trimester acute Depression affecting acute Placenta succenturiata acute acute Supervision of high risk , antepartum acute Anemia affecting in second trimester acute Depression affecting acute Placenta succenturiata acute acute Supervision of high risk , antepartum acute [facility] Work Phone: Evaluation note* Diagnosis Onset Date Resolution Status Depression affecting resolved History of miscarriage, currently resolved Placenta succenturiata resol ron resolved Supervision of high risk , antepartum resolved Depression affecting resolved History of miscarriage, currently resolved Placenta succenturiata resol ron resolved Supervision of high risk , antepartum resolved Anemia affecting in second trimester resolved Depression affecting resolved History of miscarriage, currently resolved Placenta succenturiata resol ron resolved Supervision of high risk , antepartum resolved Leakage, amniotic fluid reso lved Anemia affecting in second trimester resolved Depression affecting resolved History of miscarriage, currently resolved Placenta succenturiata resol ron resolved Supervision of high risk , antepartum resolved Anemia affecting in second trimester resolved Depression affecting resolved Placenta succenturiata resol ron resolved Supervision of high risk , antepartum resolved Anemia affecting in second trimester resolved Depression affecting resolved Placenta succenturiata resol ron resolved Supervision of high risk , antepartum resolved Anemia affecting in second trimester resolved Depression affecting resolved Placenta succenturiata resol ron resolved Supervision of high risk , antepartum resolved Anemia affecting in second trimester resolved Depression affecting resolved Placenta succenturiata resol ron resolved Supervision of high risk , antepartum resolved Anemia affecting in second trimester resolved Depression affecting resolved Placenta succenturiata resol ron resolved Supervision of high risk , antepartum resolved delivery delivered acute Anemia affecting in second trimester resolved Depression affecting resolved Placenta succenturiata resol ron resolved Prolonged heart deceleration resolved Spontaneous onset of labor r esolved Supervision of high risk , antepartum resolved [facility] Work Phone: Reason for referral (narrative)No reason for referral information availableWKet[facility] Work Phone: Chief Complaint and Reason for Visit Chief Complaint NOB LMP 7/11 EORDER Reason for Visit Depression Seasonal allergies Supervision of high risk , antepartum Threatened Chief Complaint NOB LMP 7/11 EORDER 14 WEEKS d&c d&c Reason for Visit Depression Seasonal allergies Supervision of high risk , antepartum Threatened Incomplete Chief Complaint VIABILITY Chief Complaint VIABILITY NOB LMP 114, hx of miscarriage Reason for Visit Depression affecting History of miscarriage, currently Supervision of high risk , antepartum Chief Complaint VIABILITY NOB LMP 114, hx of miscarriage 11 WK OB ENCOUNTER FOR SUPERVISION OF OTHER NORMAL PREGNANC Reason for Visit Depression affecting History of miscarriage, currently Supervision of high risk , antepartum Depression affecting History of miscarriage, currently Supervision of high risk , antepartum Chief Complaint VIABILITY NOB LMP 14, hx of miscarriage 11 WK OB ENCOUNTER FOR SUPERVISION OF OTHER NORMAL PREGNANC 15 WK OB Reason for Visit Depression affecting History of miscarriage, currently Supervision of high risk , antepartum Depression affecting History of miscarriage, currently Supervision of high risk , antepartum Depression affecting History of miscarriage, currently Supervision of high risk , antepartum Chief Complaint 11 WK OB ENCOUNTER FOR SUPERVISION OF OTHER NORMAL PREGNANC 15 WK OB 19 wk ob 23 WK OB 27 WK OB EORDER Reason for Visit Depression affecting History of miscarriage, currently Supervision of high risk , antepartum Depression affecting History of miscarriage, currently Supervision of high risk , antepartum Depression affecting History of miscarriage, currently Supervision of high risk , antepartum Depression affecting History of miscarriage, currently Placenta succenturiata Supervision of high risk , antepartum Depression affecting History of miscarriage, currently Placenta succenturiata Supervision of high risk , antepartum Chief Complaint 15 WK OB 19 wk ob 23 WK OB 27 WK OB EORDER 30 WK OB Reason for Visit Depression affecting History of miscarriage, currently Supervision of high risk , antepartum Depression affecting History of miscarriage, currently Supervision of high risk , antepartum Depression affecting History of miscarriage, currently Placenta succenturiata Supervision of high risk , antepartum Depression affecting History of miscarriage, currently Placenta succenturiata Supervision of high risk , antepartum Anemia affecting in second trimester Depression affecting History of miscarriage, currently Placenta succenturiata Supervision of high risk , antepartum Chief Complaint 15 WK OB 19 wk ob 23 WK OB 27 WK OB EORDER 30 WK OB R/O ROM Reason for Visit Depression affecting History of miscarriage, currently Supervision of high risk , antepartum Depression affecting History of miscarriage, currently Supervision of high risk , antepartum Depression affecting History of miscarriage, currently Placenta succenturiata Supervision of high risk , antepartum Depression affecting History of miscarriage, currently Placenta succenturiata Supervision of high risk , antepartum Anemia affecting in second trimester Depression affecting History of miscarriage, currently Placenta succenturiata Supervision of high risk , antepartum Chief Complaint 23 WK OB 27 WK OB EORDER 30 WK OB R/O ROM R/O ROM 32 WK OB R/O ROM 34 WK OB 36 WK OB 37 WK OB 38 WK OB 39 WK OB, possible leaking fluid Reason for Visit Depression affecting Placenta succenturiata Supervision of high risk , antepartum History of miscarriage, currently Depression affecting Placenta succenturiata Supervision of high risk , antepartum History of miscarriage, currently Anemia affecting in second trimester Depression affecting Placenta succenturiata Supervision of high risk , antepartum History of miscarriage, currently Leakage, amniotic fluid Anemia affecting in second trimester Depression affecting Placenta succenturiata Supervision of high risk , antepartum History of miscarriage, currently Anemia affecting in second trimester Depression affecting Placenta succenturiata Supervision of high risk , antepartum Anemia affecting in second trimester Depression affecting Placenta succenturiata Supervision of high risk , antepartum Anemia affecting in second trimester Depression affecting Placenta succenturiata Supervision of high risk , antepartum Anemia affecting in second trimester Depression affecting Placenta succenturiata Supervision of high risk , antepartum Anemia affecting in second trimester Depression affecting Placenta succenturiata Supervision of high risk , antepartum Chief Complaint 23 WK OB 27 WK OB EORDER 30 WK OB R/O ROM R/O ROM 32 WK OB R/O ROM 34 WK OB 36 WK OB 37 WK OB 38 WK OB 39 WK OB, possible leaking fluid [employer]IMARY [employer]IMARY Reason for Visit Depression affecting History of miscarriage, currently Placenta succenturiata Supervision of high risk , antepartum Depression affecting History of miscarriage, currently Placenta succenturiata Supervision of high risk , antepartum Anemia affecting in second trimester Depression affecting History of miscarriage, currently Placenta succenturiata Supervision of high risk , antepartum Leakage, amniotic fluid Anemia affecting in second trimester Depression affecting History of miscarriage, currently Placenta succenturiata Supervision of high risk , antepartum Anemia affecting in second trimester Depression affecting Placenta succenturiata Supervision of high risk , antepartum Anemia affecting in second trimester Depression affecting Placenta succenturiata Supervision of high risk , antepartum Anemia affecting in second trimester Depression affecting Placenta succenturiata Supervision of high risk , antepartum Anemia affecting in second trimester Depression affecting Placenta succenturiata Supervision of high risk , antepartum Anemia affecting in second trimester Depression affecting Placenta succenturiata Supervision of high risk , antepartum delivery delivered Anemia affecting in second trimester Depression affecting Placenta succenturiata Prolonged heart deceleration Spontaneous onset of labor Supervision of high risk , antepartum Advance Directives No Advanced Directives Records Found Advance Directive Response Recorded Date/ Time Living Will No March 28, 2022 1:42pm Power of Card Lacer No March 1:42pm Advance Directive Response Recorded Date/ Time Living Will No March 28, 2022 12:42pm Power of Card Lacer No March 12:42pm Advance Directive Response Recorded Date/ Time Living Will No May 01 11:39am Power of Card Lacer No May 01, 2023 11:39am Summary Purpose Family History No Family History Records FoundNo Family History Records Found Additional Source Comments Goals (unrecognized section and content) Goals may be documented in a n alternate sectionGoals may be documented in an alternate sectionGoals may be documented in an alternate sectionGoals may be documented in an alternate sectionGoals may be documented in an alternate sectionGoals may be documented in an alternate sectionGoals may be documented in an alternate sectionGoals may be documented in an alternate sectionGoals may be documented in an alternate sectionGoals may be documented in an alternate sectionGoals may be documented in an alternate sectionGoals may be documented in an alternate section Care Teams (unrecognized sec tion and content) Team Status: Active Member Role Status Dates Dr. Catalina Cox DO Primary Care Provider Active Team Status: Inactive Member Role Status Dates Dr. Catalina Cox DO Primary Care Provider Active Dr. Leonarda Christine MD Attending Provider, Referr ing Provider Active Team Status: Active Member Role Status Dates Dr. Catalina Cox DO Primary Care Provider Active Dr. Leonarda Christine MD Attending Provider, Referr ing Provider Active Team Status: Inactive Member Role Status Dates Dr. Catalina Cox DO Primary Care Provider Active Dr. Leonarda Christine MD Attending Provider Active Team Status: Inactive Member Role Status Dates Dr. Catalina Cox DO Primary Care Provider, Referring P rovider Active Dr. Merle Decker DO Attending Provider Activ e Team Status: Inactive Member Role Status Dates Dr. Catalina Cox DO Primary Care Provider Active Dr. Merle Decker , Attending Provider, Refe rring Provider Active Team Status: Inactive Member Role Status Dates Dr. Catalina Cox DO Primary Care Provider, Referring P rovider Active Honey León NP, PRODUCT MARKETING SPECIALIST-C Attending Provider Active Team Status: Inactive Member Role Status Dates Dr. Catalina Cox DO Primary Care Provider, Referring P rovider Active Deepthi Franco CNM Attending Provider Active Team Status: Inactive Member Role Status Dates Dr. Catalina Cox DO Primary Care Provider Active Amy Rainey NP-C Attending Provider Active Team Status: Inactive Member Role Status Dates Dr. Catalina Cox DO Primary Care Provider, Referring P rovider Active Celestina Elliott CNM Attending Provider Active Team Status: Inactive Member Role Status Dates Dr. Catalina Cox DO Primary Care Provider Active Deepthi Franco CNM Attending Provider Active Team Status: Inactive Member Role Status Dates Dr. Catalina Cox DO Primary Care Provider, Referring P rovider Active Dr. Leonarda Christine MD Attending Provider Active Team Status: Active Member Role Status Dates Dr. Catalina Cox DO Primary Care Provider Active Deepthi Franco CNM Attending Provider, Other Provid er Active Team Status: Active Member Role Status Dates Dr. Catalina Cox DO Primary Care Provider Active Deepthi Franco CNM Attending Provider Active Team Status: Active Member Role Status Dates Dr. Catalina Cox DO Primary Care Provider Active Deepthi Franco CNM Admit Provider, At tending Provider, Referring Provider, Other Provider Active Team Status: Active Member Role Status Dates Dr. Catalina Cox DO Primary Care Provider Active Deepthi Franco CNM Admit Provider, Referring Provid er Active Dr. Merle Decker DO Other Provider Active Celestina Elliott CNM Attending Provider Active Team Status: Active Member Role Status Dates Dr. Catalina Cox DO Primary Care Provider Active Deepthi Franco CNM Admit Provider, Referring Provid er Active Dr. Merle Decker , DO Other Provider Active Honey León PRODUCT MARKETING SPECIALIST, PRODUCT MARKETING SPECIALIST-C Attending Provider Active Team Status: Inactive Member Role Status Dates Dr. Catalina Cox DO Primary Care Provider Active Deepthi Franco CNM Admit Provider, Referring Provid er Active Dr. Merle Decker DO Attending Provider Activ e Team Status: Inactive Member Role Status Dates Dr. Catalina Cox DO Primary Care Provider Active Start: December 26, 2024 End: December 26, 2024 Dr. Catalina Cox DO Attending Provider Active St art: December 26, 2024 End: December 26, 2024 INFORMATION SOURCE (unrecogn ized section and content) DATE CREATED AUTHOR 04/13/2023 [facility] DATE CREATED AUTHOR AUTHOR'S ORGANIZ ATION 05/18/[address] [facility] FOR RECORDS PERTAINING TO PATIENTS WHO ARE OR HAVE BEEN ENROLLED IN A CHEMICAL DEPENDENCY/SUBSTANCEABUSE PROGRAM, SOME INFORMATION MAY BE OMITTED. This clinical summary was aggregated from multiple sources. Caution should be exercised in using it in the provision of clinical care. This summary normalizes information from multiple sources, and as a consequence, information in this document may materially change the coding, format and clinical context of patient data. In addition, data may be omitted in some cases. CLINICAL DECISIONS SHOULD BE BASED ON THE PRIMARY CLINICAL RECORDS. [employer] provides no warranty or guarantee of the accuracy or completeness of information in this document.
[2025-06-28 12:06] LABS: hCG Titer Quant., Serum 2209 mIU/mL (<9 non-preg)
== END | disposition home or self-care (01) ==
LOC: LAB 11:00
PROVIDERS: PCP Family Medicine; Referring Provider Student in an Organized Health Care Education/Training Program; Visit Provider Student in an Organized Health Care Education/Training Program
DX: N91.1 Secondary amenorrhea (principal)
CPT/HCPCS: 36415; 84702